=== PATIENT | male | born 1955 | race Caucasian/White ===

== ENCOUNTER 2020-06-21 09:11 | Outpatient (CLI) | payer MEDICARE, SELFPAY ==
--- NOTE | ~2020-06-21 | US_ITS ---
EXAMINATION: US right upper quadrant DATE: 06/21/2020 09:36 INDICATION: Right upper quadrant abdominal pain. TECHNIQUE: Multiple grayscale and Doppler ultrasound images of the abdomen were obtained. COMPARISON: CT abdomen and pelvis 09/07/2018 FINDINGS: The visualized portions of the head, body, and tail of the pancreas are normal. The liver i s normal without focal lesion. There is normal flow in main portal vein. The gallbladder is normal in size. No gallstones or gallbladder wall thickening. There was no sonographic Cardozo sign. The common duct is normal and measures 3 mm. IMPRESSION: 1. Normal right upper quadrant ultrasound. Reviewed, dictated and finalized at location A.
== END 2020-06-21 09:12 | disposition home or self-care (01) ==
LOC: ANHIMG 09:17
PROVIDERS: PCP Internal Medicine; Visit Provider Physician Assistant Medical
DX: R10.11 Right upper quadrant pain (principal)
CPT/HCPCS: 76705

== ENCOUNTER 2020-07-07 02:33 | Outpatient (CLI) | payer MEDICARE, SELFPAY ==
[2020-07-07 18:02] LABS: SARS-CoV-2 RNA PCR Negative
== END 2020-07-07 02:34 | disposition home or self-care (01) ==
LOC: ANHCOVIDDT 02:33
PROVIDERS: PCP Internal Medicine; Visit Provider Internal Medicine Gastroenterology
DX: Z01.812 Encounter for preprocedural laboratory examination (principal); Z20.828 Contact with and (suspected) exposure to other viral communicable diseases
CPT/HCPCS: 87635; C9803; U0003

== ENCOUNTER 2020-08-04 00:35 | Outpatient (CLI) | payer MEDICARE, SELFPAY ==
[2020-08-04 21:24] LABS: SARS-CoV-2 RNA PCR Negative
== END 2020-08-04 00:36 | disposition home or self-care (01) ==
LOC: ANHCOVIDDT 00:35
PROVIDERS: PCP Internal Medicine; Visit Provider Internal Medicine Gastroenterology
DX: Z01.812 Encounter for preprocedural laboratory examination (principal); Z20.828 Contact with and (suspected) exposure to other viral communicable diseases
CPT/HCPCS: 87635; C9803; U0003

== ENCOUNTER 2020-08-07 01:10 | Day surgery (SDC) | payer MEDICARE, SELFPAY ==
[2020-07-27 13:18] VITALS: BMI 24.4
[2020-08-07 10:12] VITALS: BP 110/82; PULSE 120; RESP 18; TEMP 36.6; O2SAT 98
[2020-08-07] MEDS: LACTATED RINGERS 1,000 ML 150 ML IV CONT (10:21)
--- NOTE | 2020-08-07 10:48 | WPDANESEPPF ---
Anes - Initial Pre Proc Eval Procedure: Operation Date: 08/07/20 11:30 Proposed Procedures p Colonoscopy - Connor Aguillon DO Date/Time: 08/07/20 10:48 Surgeon: Connor Aguillon DO Pre Op Diagnosis: IBS with constipation and diarrhea Patient Data Age: 64 Gender: M Height: 5 ft 9 in Weight: 69.2 kg Last Vital Signs Temp 97.8 F 08/07/20 10:12 Pulse 120 H 08/07/20 10:12 Resp 18 08/07/20 10:12 BP 110/82 08/07/20 10:12 Pulse Ox 98 08/07/20 10:12 Allergies Allergy/AdvReac Type Severity Reaction Status Date / Time acetaminophen [From Vicodin] AdvReac Mild Headache Verified 08/07/20 10:11 cefuroxime AdvReac Mild Diarrhea Verified 08/07/20 10:11 codeine AdvReac Mild Flushing Verified 08/07/20 10:11 hydrocodone [From Vicodin] AdvReac Mild Headache Verified 08/07/20 10:11 Home Medications Medication Instructions Recorded Confirmed Type tamsulosin 0.4 mg capsule 0.4 mg PO DAILY 09/10/19 08/07/20 History gabapentin 300 mg capsule 300 mg PO TID cap 10/15/19 07/27/20 History sildenafil 100 mg tablet 100 mg PO DAILY PRN #8 tablet 04/20/20 07/27/20 Rx loratadine-pseudoephedrine 1 tablet PO Q12H PRN 07/04/20 07/27/20 History [Claritin-D 12 Hour] omeprazole 40 mg PO DAILY 07/04/20 07/27/20 History tizanidine 4 mg PO TID 07/04/20 07/27/20 History tramadol 50 mg PO Q12-24H PRN 07/04/20 07/27/20 History alprazolam 1 mg tablet 1 mg PO BID #60 tablet 08/01/20 08/07/20 Rx Patient hx anesthesia problems: none Family hx anesthesia problems: none PMFSH Past Medical History Medical History Cervical fusion syndrome Cough TOS (thoracic outlet syndrome) Surgical History Surgical History History of esophagogastroduodenoscopy (EGD) Family History Family History Sibling Hypertension Patient's brother is in good health Mother Patient's mother is Family history of Parkinson's disease Father Patient's father is Family history of emphysema Social History Social History Smoking status: Never smoker Second hand tobacco smoke exposure: No Alcohol intake: current Drinks per week: 0 Alcohol use details: Rarely Substance use: never Substance use type: does not use Living arrangements: with family Spiritual care concerns: No Anes - Eval Final PreProcedure Day of Procedure 08/07/20 10:48 Patient weight: normal Heart: regular rate and rhythm Lungs: clear to auscultation Airway: Mallampati scale class II Neurological: alert and oriented Last oral intake: >/= 8 hours ASA classification: II Emergent: no Anesthetic plan: proceed Anesthesia type and monitoring: general GIVS and standard monitoring Informed Consent: The patient's anesthetic plan and its attendant risks and benefits were discussed with the patient/family/POA. Questions were solicited and answers provided to the satisfaction of the patient/family/POA.
--- NOTE | 2020-08-07 11:50 | PM.IMHP ---
H&P: HPI History of Present Illness Date/Time: 08/07/20 11:50 Chief complaint: IBS with constipation and diarrhea Narrative: Reason for visit is colonoscopy. This very pleasant gentleman seen in consultation at the request of the primary physician. Impression: The review gentleman with a history of abdominal pain, constipation diarrhea. We will evaluate for underlying inflammatory neoplastic disease. The symptoms may be compatible with underlying IBS with alternating constipation and diarrhea. dyspepsia/GERD. Anxiety. BPH. Chronic pain. Status post thoracic outlet syndrome surgery x4. Recommendation: Will proceed with colonoscopy. History: This very pleasant gentleman is being evaluated for abdominal pain. The patient awakened 1 night with severe abdominal pain. Is described as severe cramping pain followed by several episodes of diarrhea. Denied any hematochezia, melena acholic stools. He was having complaints of diaphoresis and nausea. Recently the patient has been having complaints of right upper quadrant Abdominal discomfort. Ultrasound report is unremarkable. Patient here for colonoscopy to evaluate for underlying inflammatory neoplastic disease. He had been noticing increasing belching. Physical examination: General: very pleasant patient in no acute distress. HEENT: Head was normocephalic sclerae is clear mouth without masses neck was supple. Heart: Rate rhythm regular without S3 or S4. Lungs: CTA. Abdomen: Soft with no guarding or rigidity. Bowel sounds were active. Neurologic: Cranial nerves 2 through 12 intact. No focal defects. No clonus. Musculoskeletal system: Revealed no joint tenderness or swelling no muscle atrophy. Extremities: Reveal no significant edema. Skin: Warm and dry with normal turgor. Mental status: intact. Patient is alert and oriented. Review of Systems Review of Systems: All systems reviewed & are unremarkable except as noted in HPI and below PMFSH Past Medical History Medical History Cervical fusion syndrome Cough TOS (thoracic outlet syndrome) Surgical History Surgical History History of esophagogastroduodenoscopy (EGD) Family History Family History Sibling Hypertension Patient's brother is in good health Mother Patient's mother is Family history of Parkinson's disease Father Patient's father is Family history of emphysema Social History Social History Smoking status: Never smoker Second hand tobacco smoke exposure: No Alcohol intake: current Drinks per week: 0 Alcohol use details: Rarely Substance use: never Substance use type: does not use Living arrangements: with family Spiritual care concerns: No Meds Home Medications and Allergies Home Medications Medication Instructions Recorded Confirmed Type tamsulosin 0.4 mg capsule 0.4 mg PO DAILY 09/10/19 08/07/20 History gabapentin 300 mg capsule 300 mg PO TID cap 10/15/19 07/27/20 History sildenafil 100 mg tablet 100 mg PO DAILY PRN #8 tablet 04/20/20 07/27/20 Rx loratadine-pseudoephedrine 1 tablet PO Q12H PRN 07/04/20 07/27/20 History [Claritin-D 12 Hour] omeprazole 40 mg PO DAILY 07/04/20 07/27/20 History tizanidine 4 mg PO TID 07/04/20 07/27/20 History tramadol 50 mg PO Q12-24H PRN 07/04/20 07/27/20 History alprazolam 1 mg tablet 1 mg PO BID #60 tablet 08/01/20 08/07/20 Rx Allergies Allergy/AdvReac Type Severity Reaction Status Date / Time acetaminophen [From Vicodin] AdvReac Mild Headache Verified 08/07/20 10:11 cefuroxime AdvReac Mild Diarrhea Verified 08/07/20 10:11 codeine AdvReac Mild Flushing Verified 08/07/20 10:11 hydrocodone [From Vicodin] AdvReac Mild Headache
[2020-08-07 12:15] VITALS: BP 111/69; PULSE 81; RESP 18; O2SAT 98
[2020-08-07 12:25] VITALS: BP 120/74; PULSE 72; RESP 13; O2SAT 97
[2020-08-07 12:35] VITALS: BP 121/70; PULSE 74; RESP 22; O2SAT 100
== END 2020-08-07 12:39 | disposition home or self-care (01) ==
PROVIDERS: PCP Internal Medicine; Visit Provider Internal Medicine Gastroenterology
PROC: 0DJD8ZZ Inspection of Lower Intestinal Tract, Via Natural or Artificial Opening Endoscopic (ICD-10-PCS; CPT 45378; principal; 2020-08-07 11:30)
DX: R11.0 Nausea (principal); R19.7 Diarrhea, unspecified; R63.4 Abnormal weight loss; K57.30 Diverticulosis of large intestine without perforation or abscess without bleeding; K63.5 Polyp of colon; K62.89 Other specified diseases of anus and rectum; G54.0 Brachial plexus disorders
CPT/HCPCS: 45385; 45380; 88305; J2001; J2704; J7120

== ENCOUNTER 2020-08-18 02:17 | Outpatient (CLI) | payer MEDICARE, SELFPAY ==
[2020-08-18 18:46] LABS: SARS-CoV-2 RNA PCR Negative
== END 2020-08-18 02:18 | disposition home or self-care (01) ==
LOC: ANHCOVIDDT 02:18
PROVIDERS: PCP Internal Medicine; Visit Provider Internal Medicine Gastroenterology
DX: Z01.818 Encounter for other preprocedural examination (principal); Z20.828 Contact with and (suspected) exposure to other viral communicable diseases
CPT/HCPCS: 87635; C9803; U0003

== ENCOUNTER 2020-08-21 00:38 | Day surgery (SDC) | payer MEDICARE, SELFPAY ==
[2020-07-04 09:53] VITALS: BMI 24.4
[2020-08-14 14:12] VITALS: BMI 22.4
[2020-08-21 11:41] VITALS: BP 120/86; PULSE 92; RESP 16; TEMP 36.4; O2SAT 96
[2020-08-21] MEDS: LACTATED RINGERS 1,000 ML 150 ML IV CONT (11:54)
--- NOTE | 2020-08-21 11:57 | WPDANESEPPF ---
Anes - Initial Pre Proc Eval Procedure: Operation Date: 08/21/20 13:00 Proposed Procedures p Esophagogastroduodenoscopy - Connor Aguillon DO Date/Time: 08/21/20 11:57 Surgeon: Connor Aguillon DO Pre Op Diagnosis: GERD Patient Data Age: 64 Gender: M Height: 5 ft 9 in Weight: 70.7 kg Last Vital Signs Temp 36.4 C L 08/21/20 11:41 Pulse 92 08/21/20 11:41 Resp 16 08/21/20 11:41 BP 120/86 08/21/20 11:41 Pulse Ox 96 08/21/20 11:41 Allergies Allergy/AdvReac Type Severity Reaction Status Date / Time acetaminophen [From Vicodin] AdvReac Mild Headache Verified 08/21/20 11:37 cefuroxime AdvReac Mild Diarrhea Verified 08/21/20 11:37 codeine AdvReac Mild Flushing Verified 08/21/20 11:37 hydrocodone [From Vicodin] AdvReac Mild Headache Verified 08/21/20 11:37 Home Medications Medication Instructions Recorded Confirmed Type tamsulosin 0.4 mg capsule 0.4 mg PO DAILY 09/10/19 08/14/20 History gabapentin 300 mg capsule 300 mg PO TID cap 10/15/19 08/14/20 History sildenafil 100 mg tablet 100 mg PO DAILY PRN #8 tablet 04/20/20 08/14/20 Rx loratadine-pseudoephedrine 1 tablet PO Q12H PRN 07/04/20 08/14/20 History [Claritin-D 12 Hour] omeprazole 40 mg PO DAILY 07/04/20 08/14/20 History tizanidine 4 mg PO TID 07/04/20 08/14/20 History tramadol 50 mg PO Q12-24H PRN 07/04/20 08/14/20 History alprazolam 1 mg tablet 1 mg PO BID #60 tablet 08/01/20 08/14/20 Rx hyoscyamine sulfate 0.125 mg PO QID 08/14/20 08/14/20 History Patient hx anesthesia problems: none Family hx anesthesia problems: none PMFSH Past Medical History Medical History Cervical fusion syndrome Cough TOS (thoracic outlet syndrome) Surgical History Surgical History History of esophagogastroduodenoscopy (EGD) Family History Family History Sibling Hypertension Patient's brother is in good health Mother Patient's mother is Family history of Parkinson's disease Father Patient's father is Family history of emphysema Social History Social History Smoking status: Never smoker Second hand tobacco smoke exposure: No Alcohol intake: never Drinks per week: 0 Substance use: never Substance use type: does not use Spiritual care concerns: No Anes - Eval Final PreProcedure Day of Procedure 08/21/20 11:57 Patient weight: normal Heart: regular rate and rhythm Lungs: clear to auscultation Airway: Mallampati scale class II Neurological: alert and oriented Last oral intake: >/= 8 hours ASA classification: II Emergent: no Anesthetic plan: proceed Anesthesia type and monitoring: general GIVS and standard monitoring Informed Consent: The patient's anesthetic plan and its attendant risks and benefits were discussed with the patient/family/POA. Questions were solicited and answers provided to the satisfaction of the patient/family/POA.
--- NOTE | 2020-08-21 12:03 | WPDHPUPDATE1 ---
History and Physical Update Update Date/Time: 08/21/20 12:03 History and Physical has been reviewed, including an updated exam of the patient. There are NO changes in the patient's condition. Risks, benefits, and alternatives have been discussed and questions answered. Patient agrees to proceed with procedure.
[2020-08-21] MEDS: BENZOCAINE (*SP) 60 ML SPRAY CAN (HURRICAINE) 1 SPRAY MUCOUS MEM (12:31)
[2020-08-21 12:44] VITALS: BP 110/64; PULSE 79; RESP 20; O2SAT 96
[2020-08-21 12:54] VITALS: BP 114/71; PULSE 75; RESP 20; O2SAT 96
[2020-08-21 13:04] VITALS: BP 116/73; PULSE 67; RESP 20; O2SAT 100
== END 2020-08-21 13:18 | disposition home or self-care (01) ==
PROVIDERS: PCP Internal Medicine; Visit Provider Internal Medicine Gastroenterology
PROC: 0DJ08ZZ Inspection of Upper Intestinal Tract, Via Natural or Artificial Opening Endoscopic (ICD-10-PCS; CPT 43235; principal; 2020-08-21 13:00)
DX: K21.9 Gastro-esophageal reflux disease without esophagitis (principal); M43.22 Fusion of spine, cervical region; G54.0 Brachial plexus disorders; K31.7 Polyp of stomach and duodenum
CPT/HCPCS: 43239; 88305; C9803; J2704; J7120; U0003

== ENCOUNTER 2020-08-23 14:05 | Outpatient (CLI) | payer MEDICARE, SELFPAY ==
--- NOTE | ~2020-08-23 | CT_ITS ---
EXAMINATION: CT abdomen pelvis w con EXAM DATE: 08/23/2020 15:03 INDICATION: RUQ pain, Epigastric pain. Weight loss, diarrhea. TECHNIQUE: Spiral CT of the abdomen and pelvis was performed following intravenous injection of 100 m L Omnipaque 350. Axial, coronal and sagittal images were reviewed. The dose-length product (DLP) fo r this examination was 353.07 mGy-cm. The exposure was tailored according to patient size (auto mA e xposure control), and iterative reconstruction (ASIR) was used as additional dose reduction technique . Comparison is made to prior examination from 09/07/2018. FINDINGS: The liver, spleen, adrenal glands and pancreas are unremarkable. Gallbladder is unremarkab le. No biliary obstruction. Portal and splenic veins are patent. Kidneys enhance symmetrically. T here is no hydronephrosis. There is a 5.4 cm left renal cyst. The prostate is unremarkable. The eveyln dder is unremarkable. There is no retroperitoneal or pelvic lymphadenopathy. The appendix is normal. The stomach and small bowel are unremarkable. There is expected amount of c olonic stool. There is mild scattered colonic diverticulosis. There is no adjacent inflammatory cesar ge to suggest diverticulitis. No free intraperitoneal gas. The heart is normal in size. There are no pericardial or pleural effusions. The lung bases are unremarkable. There are no osteoblastic or osteolytic lesions identified. L4-5 left hemilaminectomy and interbody fusion. IMPRESSION: No acute intra-abdominal findings. Mild colonic diverticulosis. Reviewed, dictated and finalized at location A. RAL JAVA DEVELOPER
[2020-08-23 14:47] LABS: Estimated Glomerular Filt Rate > 60
== END 2020-08-23 14:06 | disposition home or self-care (01) ==
PROVIDERS: PCP Internal Medicine; Visit Provider Internal Medicine Gastroenterology
DX: R10.11 Right upper quadrant pain (principal); R10.13 Epigastric pain; N28.1 Cyst of kidney, acquired; K57.30 Diverticulosis of large intestine without perforation or abscess without bleeding
CPT/HCPCS: 74177; Q9967

== ENCOUNTER 2020-09-15 07:33 | Outpatient (CLI) | payer MEDICARE, SELFPAY ==
--- NOTE | ~2020-09-15 | NM_ITS ---
EXAMINATION: NM hepatobiliary w pharm DATE: 09/15/2020 10:07 INDICATION: Right upper quadrant abdominal pain. COMPARISON: CT abdomen and pelvis 08/23/2020 TECHNIQUE: 5 mCi Tc-99m mebrofenin (Choletec) was administered intravenously. Scintigraphic images o f the abdomen were obtained for one hour. Then, 1.5 mcg sincalide (Kinevac) IV was administered, and imaging was continued for 30 minutes. FINDINGS: There is normal clearance of radiotracer from the blood pool. There is homogeneous tracer u ptake by the liver. Activity progresses to the bowel and gallbladder. Gallbladder ejection fraction (GBEF) was 95%. Note that most patients with gallbladder dysfunction have GBEF < 35%, which overlaps with the broad normal range of 10-90%. IMPRESSION: 1. Normal hepatobiliary scintigraphy. Reviewed, dictated and finalized at location A. OL SPEECH LANGUAGE PATHOLOGIST
== END 2020-09-15 07:34 | disposition home or self-care (01) ==
LOC: ANHIMG 07:35
PROVIDERS: PCP Internal Medicine; Visit Provider Internal Medicine Gastroenterology
DX: R10.11 Right upper quadrant pain (principal)
CPT/HCPCS: 78227; A9537; J2805

== ENCOUNTER → 2021-03-30 06:48 | Outpatient (CLI) | payer MEDICARE, SELFPAY ==
[2021-03-30 17:52] LABS: SARS-CoV-2 RNA PCR Negative
== END ==
PROVIDERS: PCP Internal Medicine; Visit Provider Internal Medicine
DX: R68.89 Other general symptoms and signs (principal); Z20.822 Contact with and (suspected) exposure to COVID-19
CPT/HCPCS: C9803; U0003; U0005

== ENCOUNTER 2021-05-29 09:18 | Outpatient (CLI) | payer MEDICARE, SELFPAY ==
--- NOTE | ~2021-05-29 | CT_ITS ---
EXAMINATION: CT sinus wo con DATE: 05/29/2021 09:45 INDICATION: Chronic sinusitis. TECHNIQUE: Computed tomography (CT) of the paranasal sinuses was performed without intravenous contra st. The dose-length product was 333.52 mGy-cm. Automated exposure control and iterative reconstructio n technique were employed. COMPARISON: CT dated 08/08/2017 FINDINGS: No significant mucosal thickening, fluid, mucoperiosteal reaction or air-fluid levels are d emonstrated. No nasal septal deviation. Ostiomeatal units are patent. Mastoids are pneumatized. IMPRESSION: 1. No significant sinus disease. Reviewed, dictated and finalized at location A.
== END 2021-05-29 09:19 | disposition home or self-care (01) ==
LOC: ANHIMG 09:19
PROVIDERS: PCP Internal Medicine; Visit Provider Internal Medicine
DX: J32.9 Chronic sinusitis, unspecified (principal)
CPT/HCPCS: 70486

== ENCOUNTER 2021-08-07 14:44 | Outpatient (CLI) | payer MEDICARE, SELFPAY ==
[2021-08-07 15:12] LABS: Hematocrit 46.5 % (42.0-52.0); Hemoglobin 15.5 g/dL (14.0-18.0)
[2021-08-07 15:24] LABS: Alanine Aminotransferase 32 U/L (4-50); Albumin Level 4.6 g/dL (3.5-5.1); Alkaline Phosphatase 68 U/L (38-126); Anion Gap 8 mmol/L (8-16); Aspartate Amino Transferase 33 U/L (17-59); Bilirubin,Total 0.8 mg/dL (0.2-1.3); Blood Urea Nitrogen 20 mg/dL (9-20); Calcium 9.6 mg/dL (8.4-10.2); Carbon Dioxide 27 mmol/L (22-30); Chloride 100 mmol/L (98-107); Cholesterol 161 mg/dL (0-200); Estimated Glomerular Filt Rate > 60; Glucose 102 mg/dL (65-110); HDL Direct 60 mg/dL; Potassium 4.5 mmol/L (3.4-5.0); Sodium 135 mmol/L (137-145); Triglycerides 94 mg/dL (<150)
[2021-08-07 15:35] LABS: LDL Cholesterol Direct 77 mg/dL
[2021-08-07 15:55] LABS: Prostate Specific Antigen 1.8 ng/mL (< OR = 4.0)
[2021-08-07 16:14] LABS: Free T4 Free Thyroxine 0.87 ng/mL (0.78-2.19)
[2021-08-09 10:40] LABS: Hepatitis B Surface Antigen Negative (Negative)
[2021-08-09 10:57] LABS: HIV 1/2 Ab P24 Ag Result Negative (Negative); Hepatitis C Virus Antibody Negative (Negative)
[2021-08-10 14:27] LABS: Testosterone Total 588 ng/dL (250-1100)
== END 2021-08-07 14:45 | disposition home or self-care (01) ==
PROVIDERS: PCP Internal Medicine; Visit Provider Nurse Practitioner
DX: R63.4 Abnormal weight loss (principal); Z12.5 Encounter for screening for malignant neoplasm of prostate; R53.83 Other fatigue; Z00.00 Encounter for general adult medical examination without abnormal findings
CPT/HCPCS: 36415; 80053; 80061; 84153; 84403; 84439; 84443; 85014; 85018; 86703; 86803; 87340; G0103; G0432

== ENCOUNTER 2021-08-09 10:49 | Outpatient (CLI) | payer SELFPAY ==
[2021-08-09 12:50] LABS: HIV 1/2 Ab P24 Ag Result Negative (Negative)
[2021-08-09 16:37] LABS: Hepatitis B Surface Antigen Negative (Negative)
[2021-08-09 16:53] LABS: Hepatitis C Virus Antibody Negative (Negative)
== END 2021-08-09 10:50 | disposition home or self-care (01) ==
LOC: ANHLAB 10:58
PROVIDERS: PCP Internal Medicine; Visit Provider Internal Medicine
DX: T14.8XXA Other injury of unspecified body region, initial encounter (principal)
CPT/HCPCS: 36415; 86703; 86803; 87340; G0432

== ENCOUNTER 2021-08-14 13:17 | Outpatient (CLI) | payer MEDICARE, SELFPAY ==
--- NOTE | ~2021-08-14 | CT_ITS ---
EXAMINATION: CT chest abdomen pelvis wo con EXAM DATE: 08/14/2021 13:51 INDICATION: R63.4 - Abnormal weight loss. Intermittent right upper quadrant discomfort. TECHNIQUE: Spiral CT of the chest, abdomen and pelvis was performed without contrast. Axial, moreno l and sagittal images chest, abdomen and pelvis were reviewed. Coronal maximum intensity pixel image s of chest reviewed. The dose-length product (DLP) for this examination was 487.77 mGy-cm. The expo sure was tailored according to patient size (auto mA exposure control), and iterative reconstruction (ASIR) was used as additional dose reduction technique. Comparison is made to prior examination from 08/23/2020. FINDINGS: CHEST: The lungs are clear. There are no pleural or pericardial effusions. Tracheobronchial tree is patent. There is no mediastinal, hilar or axillary lymphadenopathy. There is no pneumothorax. Heart normal in size. There is mild coronary arterial calcification, arterial sclerosis. ABDOMEN PELVIS: The liver, spleen, adrenal glands and pancreas are unremarkable. Gallbladder is unre markable. No biliary obstruction. There is no nephrolithiasis or hydronephrosis. Renal cysts bilate rally largest on the left at 5.7 cm. Mild prostatomegaly. The bladder is unremarkable. There is no retroperitoneal or pelvic lymphadenopathy. The appendix is normal. Mild prominence of the rectal wall, about 4 cm from the anal verge. This appe ars more pronounced than on prior studies. There is mild scattered colonic diverticulosis. There is no adjacent inflammatory change to suggest diverticulitis. The stomach and small bowel are unremarkab le. There is expected amount of colonic stool. No free intraperitoneal gas. There are no osteobl astic or osteolytic lesions identified. L4-5 interbody fusion. IMPRESSION: 1. Development of mildly prominent rectal wall, can't exclude rectal cancer. 2. Mild scattered colonic diverticulosis. 3. Mild prostatomegaly. 4. Unremarkable chest. Reviewed, dictated and finalized at location A. ING NEWS PRODUCER
== END 2021-08-14 13:18 | disposition home or self-care (01) ==
LOC: ANHIMG 13:19
PROVIDERS: PCP Internal Medicine; Visit Provider Nurse Practitioner
DX: R63.4 Abnormal weight loss (principal); N40.0 Benign prostatic hyperplasia without lower urinary tract symptoms; K57.30 Diverticulosis of large intestine without perforation or abscess without bleeding
CPT/HCPCS: 71250; 74176

== ENCOUNTER → 2021-08-15 09:55 | Outpatient (CLI) | payer MEDICARE, SELFPAY ==
[2021-08-15 13:14] LABS: Influenza Control Positive
[2021-08-15 20:26] LABS: SARS-CoV-2 RNA PCR Negative
== END ==
PROVIDERS: PCP Internal Medicine; Visit Provider Nurse Practitioner
DX: R68.89 Other general symptoms and signs (principal); Z20.822 Contact with and (suspected) exposure to COVID-19
CPT/HCPCS: 87804; C9803; U0003; U0005

== ENCOUNTER 2021-09-19 10:49 | Outpatient (CLI) | payer MEDICARE, SELFPAY ==
--- NOTE | ~2021-09-19 | CT_ITS ---
EXAMINATION: CT abdomen pelvis w con DATE: 09/19/2021 11:45 INDICATION: Right lower quadrant abdominal pain TECHNIQUE: Computed tomography (CT) of the abdomen and pelvis was performed with 100 mL Omnipaque-350 intravenous contrast. Automated exposure control and iterative reconstruction technique were employe d. The dose-length product was 681.22 mGy-cm. COMPARISON: 08/24/2021 FINDINGS: Lung bases are clear. Heart size is normal. No pericardial or pleural effusion. Liver, gallbladder, s pleen, pancreas and bilateral adrenal glands are normal. Bilateral low-attenuation renal cysts the la rgest measuring 5.7 cm at the upper pole of the left kidney in the remainder all measuring 1 cm or sm aller. There is mild to moderate colonic diverticulosis with a sigmoid and descending colon predomina nce. There is no adjacent inflammatory change to suggest diverticulitis. Small bowel and appendix ar e normal. Bladder is normal. Prostatomegaly measuring 4.4 x 3.8 cm. No free intraperitoneal gas or fl uid. No pathologically enlarged abdominal or pelvic lymphadenopathy. Mild lumbar dextrocurvature. Mod erate lumbar spondylosis with anterior spinal fusion with interbody bone graft cage at L4-L5. IMPRESSION: 1. Normal appendix. No acute intra-abdominal/pelvic process. 2. Mild to moderate diverticulosis. 3. Prostatomegaly. Reviewed, dictated and finalized at location A. E AND MISSILE OPERATIONS SPACELIFT
[2021-09-19 11:34] LABS: Estimated Glomerular Filt Rate > 60
== END 2021-09-19 10:50 | disposition home or self-care (01) ==
LOC: ANHIMG 10:53
PROVIDERS: PCP Internal Medicine; Visit Provider Internal Medicine
DX: R10.31 Right lower quadrant pain (principal); N40.0 Benign prostatic hyperplasia without lower urinary tract symptoms; K57.30 Diverticulosis of large intestine without perforation or abscess without bleeding
CPT/HCPCS: 74177; Q9967

== ENCOUNTER 2021-09-28 02:02 | Day surgery (SDC) | payer MEDICARE, SELFPAY ==
[2021-09-18 13:21] VITALS: BMI 22.8
--- NOTE | 2021-09-27 14:02 | WPDANESEPPF ---
Anes - Initial Pre Proc Eval Procedure: Operation Date: 09/28/21 07:30 Proposed Procedures p Colonoscopy - Valentin Chairez MD s [facility] Hemorrhoid Treatment - Valentin Chairez MD Date/Time: 09/27/21 14:02 Surgeon: Valentin Chairez MD Pre Op Diagnosis: Abnormal Xray Patient Data Age: 65 Gender: M Height: 1.75 m Weight: 70 kg Allergies Allergy/AdvReac Type Severity Reaction Status Date / Time doxycycline AdvReac Intermediate Diarrhea Verified 09/28/21 06:33 acetaminophen [From Vicodin] AdvReac Mild Headache Verified 09/28/21 06:33 cefuroxime AdvReac Mild Diarrhea Verified 09/28/21 06:33 codeine AdvReac Mild Flushing Verified 09/28/21 06:33 hydrocodone [From Vicodin] AdvReac Mild Headache Verified 09/28/21 06:33 Home Medications Medication Instructions Recorded Confirmed Type tamsulosin 0.4 mg capsule 0.4 mg PO DAILY 09/10/19 09/19/21 History gabapentin 300 mg capsule 300 mg PO TID cap 10/15/19 09/19/21 History sildenafil 100 mg tablet 100 mg PO DAILY PRN #8 tablet 04/20/20 09/19/21 Rx loratadine-pseudoephedrine 1 tablet PO Q12H PRN 07/04/20 09/19/21 History [Claritin-D 12 Hour] omeprazole 40 mg PO DAILY PRN 07/04/20 09/19/21 History tizanidine 4 mg PO TID 07/04/20 09/19/21 History fluticasone furoate 27.5 2 spray INTRANASAL DAILY #18.2 ml 05/25/21 09/19/21 Rx mcg/actuation nasal spray,suspension alprazolam 1 mg tablet 1 mg PO BID #60 tablet 07/30/21 09/19/21 Rx oxycodone 5 mg tablet 5 mg PO Q6H PRN #30 tablet 09/19/21 09/19/21 Rx Patient hx anesthesia problems: none Family hx anesthesia problems: none Results Review: All pre-operative results and documents have been reviewed as part of the pre-operative evaluation. [facility] Past Medical History Medical History (Updated 09/27/21 @ 14:03 by Jovani Tyler DO) Anxiety Cervical fusion syndrome Chronic sinusitis Cough TOS (thoracic outlet syndrome) Surgical History Surgical History History of esophagogastroduodenoscopy (EGD) Family History Family History Sibling Hypertension Patient's brother is in good health Mother Patient's mother is Family history of Parkinson's disease Father Patient's father is Family history of emphysema Social History Social History Smoking status: Never smoker Second hand tobacco smoke exposure: No Alcohol intake: former Alcohol use details: 3 DRINKS PER YEAR Substance use: never Substance use type: does not use Living arrangements: with family Spiritual care concerns: No Anes - Eval Final PreProcedure Day of Procedure 09/27/21 14:02 Patient weight: normal Heart: regular rate and rhythm Lungs: clear to auscultation and normal air movement Airway: Mallampati scale class II Neurological: alert and oriented Last oral intake: >/= 8 hours ASA classification: II Emergent: no Anesthetic plan: proceed Anesthesia type and monitoring: general GIVS and standard monitoring Results Review: All pre-operative results and documents have been reviewed as part of the pre-operative evaluation. Informed Consent: The patient's anesthetic plan and its attendant risks and benefits were discussed with the patient/family/POA. Questions were solicited and answers provided to the satisfaction of the patient/family/POA.
[2021-09-28 06:35] VITALS: BP 127/112; RESP 18; O2SAT 99; BMI 22.9
[2021-09-28] MEDS: LACTATED RINGERS 1,000 ML 150 ML IV CONT (06:37)
--- NOTE | 2021-09-28 07:23 | PM.HPGS ---
History of Present Illness History of Present Illness Consent: Risks, benefits, and alternatives have been discussed and questions answered. Patient agrees to proceed with procedure. Chief complaint: Abnormal Xray Narrative: Connor Hicks is a 65 year old male with weight loss and rlq pain, also noted symptomatic hemorrhoids. Had colonoscopy 2020 that showed TA polyp, normal random colon biopsies. Recent CT scan showed mild thickening of rectum. Review of Systems Constitutional: Constitutional: Denies headache(s) and Denies weakness Eyes: Eyes: Denies blurry vision ENT: Reports Normal hearing present, Denies headache(s) and Denies neck pain Cardiovascular: Cardiovascular: Denies chest pain and Denies dyspnea Respiratory: Respiratory: Denies dyspnea Gastrointestinal: Gastrointestinal: Reports no additional gastrointestinal complaints Genitourinary: Genitourinary: Denies dysuria Musculoskeletal: Musculoskeletal: Denies neck pain Integumentary/Breasts: Skin/Breast: Denies dry skin Neurologic: Reports Normal hearing present, Denies headache(s) and Denies weakness Psychiatric: Psychiatric: Denies anxiety Endocrine: Endocrine: Denies change in body appearance Hematologic/Lymphatic: Hematologic/Lymphatic: Denies easy bleeding Allergic/Immunologic: Allergic/Immunologic: Denies urticaria PMFSH Past Medical History Medical History (Updated 09/27/21 @ 14:03 by Jovani Tyler DO) Anxiety Cervical fusion syndrome Chronic sinusitis Cough TOS (thoracic outlet syndrome) Surgical History Surgical History History of esophagogastroduodenoscopy (EGD) Family History Family History Sibling Hypertension Patient's brother is in good health Mother Patient's mother is Family history of Parkinson's disease Father Patient's father is Family history of emphysema Social History Social History Smoking status: Never smoker Second hand tobacco smoke exposure: No Alcohol intake: former Alcohol use details: 3 DRINKS PER YEAR Substance use: never Substance use type: does not use Living arrangements: with family Spiritual care concerns: No Meds Home Medications and Allergies Home Medications Medication Instructions Recorded Confirmed Type tamsulosin 0.4 mg capsule 0.4 mg PO DAILY 09/10/19 09/19/21 History gabapentin 300 mg capsule 300 mg PO TID cap 10/15/19 09/19/21 History sildenafil 100 mg tablet 100 mg PO DAILY PRN #8 tablet 04/20/20 09/19/21 Rx loratadine-pseudoephedrine 1 tablet PO Q12H PRN 07/04/20 09/19/21 History [Claritin-D 12 Hour] omeprazole 40 mg PO DAILY PRN 07/04/20 09/19/21 History tizanidine 4 mg PO TID 07/04/20 09/19/21 History fluticasone furoate 27.5 2 spray INTRANASAL DAILY #18.2 ml 05/25/21 09/19/21 Rx mcg/actuation nasal spray,suspension alprazolam 1 mg tablet 1 mg PO BID #60 tablet 07/30/21 09/19/21 Rx oxycodone 5 mg tablet 5 mg PO Q6H PRN #30 tablet 09/19/21 09/19/21 Rx Allergies Allergy/AdvReac Type Severity Reaction Status Date / Time doxycycline AdvReac Intermediate Diarrhea Verified 09/28/21 06:33 acetaminophen [From Vicodin] AdvReac Mild Headache Verified 09/28/21 06:33 cefuroxime AdvReac Mild Diarrhea Verified 09/28/21 06:33 codeine AdvReac Mild Flushing Verified 09/28/21 06:33 hydrocodone [From Vicodin] AdvReac Mild Headache Verified 09/28/21 06:33 Vital Signs Vital Signs - 24 hr 09/28/21 06:35 Respiratory Rate 18 Blood Pressure 127/112 H Pulse Oximetry 99 Exam Const: General: comfortable and no acute distress HENMT: General nose exam: Normal nares present Eyes: General: appearance normal, both eyes and all related structures Neck: Neck: no JVD Resp: Auscultation: clear to auscultation bilaterally Cardio: Rate: regular rate
[2021-09-28 07:55] VITALS: BP 93/61; PULSE 80; RESP 20; O2SAT 99
--- NOTE | 2021-09-28 07:56 | W.PM.PROC2 ---
Procedure Note - Detailed Date of Procedure 09/28/21 Pre-op Diagnosis internal hemorrhoids Post-op Diagnosis same Procedure Performed IRC (infrared coagulation of hemorrhoids) Surgeon Valentin Chairez MD Findings found grade II internal hemorrhoids, also skin tags, no anal fissure. Then I introduced anoscope and IRC probe, hemorrhoids treated x6 using 1.5 seconds each time. Description of Procedure as above
[2021-09-28 08:05] VITALS: BP 102/70; PULSE 77; RESP 23; O2SAT 97
[2021-09-28 08:15] VITALS: BP 110/75; PULSE 78; RESP 22; O2SAT 99
--- NOTE | 2021-09-28 08:43 | SUR.OPER ---
RN updated family
== END 2021-09-28 08:25 | disposition home or self-care (01) ==
PROVIDERS: PCP Internal Medicine; Visit Provider Internal Medicine Gastroenterology
PROC: 0DJD8ZZ Inspection of Lower Intestinal Tract, Via Natural or Artificial Opening Endoscopic (ICD-10-PCS; CPT 45378; principal; 2021-09-28 07:30)
PROC: (CPT 46930; 2021-09-28 07:30)
DX: K64.8 Other hemorrhoids (principal); R63.4 Abnormal weight loss; G54.0 Brachial plexus disorders; Q76.1 Klippel-Feil syndrome; F41.9 Anxiety disorder, unspecified
CPT/HCPCS: 46930; 88305; J2704; J7120

== ENCOUNTER → 2022-03-22 02:20 | Outpatient (CLI) | payer MEDICARE, SELFPAY ==
[2022-03-22 17:31] LABS: SARS-CoV-2 RNA PCR Negative
== END ==
PROVIDERS: PCP Internal Medicine; Visit Provider Internal Medicine
DX: R68.89 Other general symptoms and signs (principal); Z20.822 Contact with and (suspected) exposure to COVID-19
CPT/HCPCS: C9803; U0003; U0005

== ENCOUNTER 2022-08-28 09:34 | Outpatient (CLI) | payer MEDICARE, SELFPAY ==
--- NOTE | ~2022-08-28 | CT_ITS ---
EXAMINATION: CT abdomen pelvis wo/w con DATE: 08/28/2022 10:35 INDICATION: Chronic prostatitis TECHNIQUE: Computed tomography (CT) of the abdomen and pelvis was performed without and subsequently with 130 CC Omnipaque 350 intravenous contrast. Automated exposure control and iterative reconstructi on technique were employed. Exam dose: 1176.81 mGy-cm total exam DLP. COMPARISON: 08/28/2022 KUB FINDINGS: The lung bases are clear of infiltrate or consolidation. Normal heart size. No pericardial or pleural effusion. Very small right hepatic probable cyst (series 4 image 67). The gallbladder appears normal. No bile d uct or pancreatic duct dilatation. No pancreatic mass lesion or calcification. Normal morphology of the adrenal glands. Normal splenic size. Mildly septated upper pole left renal cyst measures up to 5.6 cm approximate maximal dimension scatte red additional bilateral smaller renal cysts, measuring up to 11.4 cm on the right. There is prominent prostate enlargement, prominently impressing the base of the urinary bladder, with moderately prominent diffuse bladder wall thickening likely due to outlet obstruction.. There are mu ltiple prostate calcifications. Normal appendix. Diverticulosis of sigmoid and descending colon; no CT evidence of diverticulitis. No bowel obstructio n, bowel wall thickening, pneumatosis or intraperitoneal free air. Normal caliber of the abdominal aorta. No intraperitoneal or retroperitoneal or pelvic mass lesion or adenopathy or ascites. Status post left lower lumbar laminectomy and interbody spinal fusion at L4-5. Moderately severe degenerative disc disease at L5-S1. No suspicious osteolytic or osteoblastic lesions. IMPRESSION: Prominent prostate enlargement, prostate calcification, with associated bladder outlet o bstruction/moderately prominent bladder wall thickening Mild diverticulosis of the left colon; no CT evidence of diverticulitis Normal appendix Bilateral renal cysts included septate up to approximately 5.6 cm upper pole left renal cyst 6 mm probable cyst of right hepatic lobe Reviewed, dictated and finalized at [facility]. Reviewed, dictated and finalized at [facility]. [employer] IMPRESSION: Prominent prostate enlargement, prostate calcification, with assoc iated bladder outlet obstruction/moderately prominent bladder wall thickening Mild diverticulosis of the left colon; no CT evidence of diverticulitis Normal appendix Bilateral renal cysts included septate up to approximately 5.6 cm upper pole le ft renal cyst 6 mm probable cyst of right hepatic lobe
--- NOTE | ~2022-08-28 | XR_ITS ---
Supine and upright views of the abdomen Clinical history: Chronic prostatitis COMPARISON: 09/07/2018 Findings: Bowel gas pattern is nonspecific. No evidence for obstruction or free air. Multiple calcifi ed pelvic phleboliths noted. Stable orthopedic hardware at the lower lumbar spine. Impression: No significant abnormality is seen. Reviewed, dictated and finalized at [facility]. A ARTIST Impression: No significant abnormality is seen.
[2022-08-28 10:10] LABS: Estimated Glomerular Filt Rate 56
== END 2022-08-28 09:35 | disposition home or self-care (01) ==
PROVIDERS: PCP Internal Medicine; Visit Provider Nurse Practitioner Adult Health
DX: N41.1 Chronic prostatitis (principal); N40.0 Benign prostatic hyperplasia without lower urinary tract symptoms; K57.30 Diverticulosis of large intestine without perforation or abscess without bleeding; N28.1 Cyst of kidney, acquired
CPT/HCPCS: 74018; 74178; Q9967

== ENCOUNTER 2022-09-10 18:32 | Emergency (ER) | payer MEDICARE, SELFPAY ==
--- NOTE | 2022-09-10 18:34 | ED.URI ---
HPI - URI/Sore Throat General Chief Complaint: Upper Respiratory Infection Stated Complaint: congestion; sneezing; sore chest Time Seen by Provider: 09/10/22 18:34 Source: patient Mode of arrival: ambulatory Limitations: no limitations History of Present Illness HPI Narrative: Mr. Hicks is a 66-year-old male patient presenting to the clinic today with complaints of headache, cough, chest soreness, sneezing, and nasal congestion X3 days. He reports he feels as though he is having body aches in his chest and across his back. He denies any productive cough however he states he has been having a lot of nasal drainage and postnasal drip. Denies any known fever but has felt chills MD elicited complaint: cough, nasal congestion and other ( chest discomfort) Related Data Home Medications Medication Instructions Recorded Confirmed tamsulosin 0.4 mg capsule (Flomax) 0.4 mg PO DAILY 09/10/19 12/25/21 gabapentin 300 mg capsule 300 mg PO TID 10/15/19 12/25/21 loratadine 5 mg-pseudoephedrine ER 1 tablet PO Q12H PRN Allergy 07/04/20 12/25/21 120 mg tablet,extended Symptoms release,12hr (Claritin-D 12 Hour) omeprazole 40 mg capsule,delayed 40 mg PO DAILY PRN Indigestion 07/04/20 12/25/21 release tramadol 50 mg tablet 50 mg PO Q6H PRN 12/11/21 12/25/21 Allergies Allergy/AdvReac Type Severity Reaction Status Date / Time doxycycline AdvReac Intermediate Diarrhea Verified 09/10/22 18:45 acetaminophen [From Vicodin] AdvReac Mild Headache Verified 09/10/22 18:45 cefuroxime AdvReac Mild Diarrhea Verified 09/10/22 18:45 codeine AdvReac Mild Flushing Verified 09/10/22 18:45 hydrocodone [From Vicodin] AdvReac Mild Headache Verified 09/10/22 18:45 Review of Systems Review of Systems: Pertinent positives per HPI. Patient denies any fever, rash, visual changes, dizziness, cough, shortness of breath, chest pain, palpitations, nausea, vomiting, diarrhea, constipation, abdominal pain, or any urinary issues. PMFSH Past Medical History Medical History Anxiety Cervical fusion syndrome Chronic sinusitis Cough TOS (thoracic outlet syndrome) Surgical History Surgical History History of esophagogastroduodenoscopy (EGD) Family History Family History Sibling Hypertension Patient's brother is in good health Mother Patient's mother is Family history of Parkinson's disease Father Patient's father is Family history of emphysema Social History Social History Second hand tobacco smoke exposure: No Alcohol intake: former Alcohol use details: 3 DRINKS PER YEAR Substance use: never Substance use type: does not use Spiritual care concerns: No Comments At the time of my signature, I reviewed and agree with the nursing past medical, surgical, social, and family history. There is no relevant family history pertinent to the patient complaint. Exam Narrative: General: Well-developed, well nourished, in no apparent distress Head: Normocephalic, atraumatic Eyes: Pupils equally round and reactive to light bilaterally, EOM intact, sclera and conjunctive clear, no discharge, lids normal Ears: TMs intact and clear, ear canals clear, no drainage, grossly hearing normal. Nose: Nares patent, no discharge, no inflammation, no sinus tenderness. Mouth: Oral pharynx without lesions or masses, good dentition, MMM. Neck: Supple, trachea midline, no enlargement of anterior or posterior cervical nodes, no thyroid masses or goiter palpable. Cardio: Regular rate and rhythm, s1 and s2 normal, no murmur appreciated. Resp: Clear to auscultation bilaterally, no rhonchi, rales, wheezing or rubs Course Course Emergency Course: Portions of this record may francis
[2022-09-10 18:42] VITALS: BP 139/80; PULSE 91; RESP 16; TEMP 36.6; O2SAT 98
[2022-09-10 18:47] VITALS: BP 139/80; PULSE 91; RESP 16; TEMP 36.6; O2SAT 98
== END 2022-09-10 19:19 | disposition home or self-care (01) ==
PROVIDERS: Emergency Provider Nurse Practitioner Family; PCP Internal Medicine
DX: J06.9 Acute upper respiratory infection, unspecified (principal); B34.9 Viral infection, unspecified; Z20.822 Contact with and (suspected) exposure to COVID-19
CPT/HCPCS: 87426; 87804; 99213; C9803; G0463

== ENCOUNTER 2022-09-17 08:40 | Outpatient (CLI) | payer MEDICARE, SELFPAY ==
[2022-09-17 09:09] LABS: Cholesterol 162 mg/dL (0-200); HDL Direct 54 mg/dL; Triglycerides 52 mg/dL (<150)
[2022-09-17 09:10] LABS: Alanine Aminotransferase 28 U/L (6-50); Albumin Level 4.2 g/dL (3.5-5.1); Alkaline Phosphatase 60 U/L (38-126); Anion Gap 6 mmol/L (8-16); Aspartate Amino Transferase 27 U/L (17-59); Bilirubin,Total 0.9 mg/dL (0.2-1.3); Blood Urea Nitrogen 16 mg/dL (9-20); Calcium 8.8 mg/dL (8.4-10.2); Carbon Dioxide 27 mmol/L (22-30); Chloride 103 mmol/L (98-107); Estimated Glomerular Filt Rate > 60; Glucose 88 mg/dL (65-110); Potassium 3.2 mmol/L (3.4-5.0); Sodium 136 mmol/L (137-145)
[2022-09-17 09:20] LABS: LDL Cholesterol Direct 76 mg/dL
[2022-09-17 09:43] LABS: Prostate Specific Antigen 1.3 ng/mL (< OR = 4.0)
== END 2022-09-17 08:41 | disposition home or self-care (01) ==
LOC: ANHLAB 08:41
PROVIDERS: Nurse Practitioner; PCP Internal Medicine; Visit Provider Internal Medicine
DX: E78.5 Hyperlipidemia, unspecified (principal); R97.20 Elevated prostate specific antigen [PSA]
CPT/HCPCS: 36415; 80053; 80061; 84153; 84443

== ENCOUNTER 2022-09-23 11:39 | Outpatient (CLI) | payer MEDICARE, SELFPAY ==
[2022-09-23 12:22] LABS: Anion Gap 5 mmol/L (8-16); Blood Urea Nitrogen 19 mg/dL (9-20); Calcium 8.4 mg/dL (8.4-10.2); Carbon Dioxide 27 mmol/L (22-30); Chloride 102 mmol/L (98-107); Estimated Glomerular Filt Rate > 60; Glucose 90 mg/dL (65-110); Potassium 3.8 mmol/L (3.4-5.0); Sodium 134 mmol/L (137-145)
== END 2022-09-23 11:40 | disposition home or self-care (01) ==
PROVIDERS: PCP Internal Medicine; Visit Provider Nurse Practitioner
DX: E87.6 Hypokalemia (principal)
CPT/HCPCS: 36415; 80048

== ENCOUNTER 2023-06-25 21:11 | Emergency (ER) | payer MEDICARE, SELFPAY ==
--- NOTE | ~2023-06-25 | XR_ITS ---
EXAMINATION: XR chest 2V DATE: 06/25/2023 21:59 INDICATION: Chest flutter. TECHNIQUE: Frontal and lateral views of the chest were obtained. COMPARISON: Chest 2 views 11/26/2016 FINDINGS: There is no pneumonia, pleural effusion, or pneumothorax. The heart size is normal. IMPRESSION: 1. No acute cardiopulmonary disease. Reviewed, dictated and finalized at [facility].
--- NOTE | 2023-06-25 21:11 | ECG_ITS ---
Measurements Intervals [place] Rate: 90 P: 50 IN: 149 QRS: -43 QRSD: 88 T: 30 QT: 333 QTc: 408 Interpretive Statements SINUS RHYTHM WITH OCCASIONAL VENTRICULAR PREMATURE COMPLEXES BASELINE ARTIFACT INFERIOR MYOCARDIAL INFARCTION , PROBABLY OLD [40+ ms Q WAVE AND/OR ST/T ABNORMALITY IN II/aVF] ABNORMAL ECG NO PREVIOUS ECG AVAILABLE FOR COMPARISON Electronically Signed On 06-26-2023 17:11:23 CDT by Kenton Fontanez M.D.
[2023-06-25 21:14] VITALS: BP 172/86; PULSE 82; RESP 14; TEMP 36.5; O2SAT 100
[2023-06-25 21:30] LABS: Basophils Absolute Auto 0.1 K/mm3 (0.0-0.1); Basophils Percent Auto 0.9 % (0.2-1.2); Eosinophils Absolute Auto 0.1 K/mm3 (0-0.3); Eosinophils Percent Auto 1.6 % (0-4.4); Hematocrit 49.1 % (42.0-52.0); Hemoglobin 15.8 g/dL (14.0-18.0); Immature Granulocyte Absolute 0.03 K/mm3 (0.00-0.031); Immature Granulocyte Percent A 0.3 % (0-0.5); Lymphocytes Absolute Auto 2.27 K/mm3 (0.9-3.2); Lymphocytes Percent Auto 26.4 % (18.3-44.2); Mean Corpuscular HGB Conc 32.2 g/dl (32-36); Mean Corpuscular Hemoglobin 30.7 pg (26-34); Mean Corpuscular Volume 95.3 fl (80-100); Mean Platelet Volume 10.9 fl (7.4-10.4); Neutrophils Absolute Auto 5.1 K/mm3 (1.3-6.7); Neutrophils Percent Auto 58.8 % (45.5-73.1); Platelet Count Result 167 k/mm3 (150-375); Red Blood Count 5.15 M/mm3 (4.6-6.20); Red Cell Distribution Width 12.8 % (11.5-14.5); White Blood Count 8.6 K/mm3 (4.5-10.0)
[2023-06-25 21:41] LABS: Alanine Aminotransferase 30 U/L (6-50); Albumin Level 4.5 g/dL (3.5-5.1); Alkaline Phosphatase 77 U/L (38-126); Anion Gap 5 mmol/L (8-16); Aspartate Amino Transferase 36 U/L (17-59); Bilirubin,Total 0.7 mg/dL (0.2-1.3); Blood Urea Nitrogen 25 mg/dL (9-20); Calcium 8.9 mg/dL (8.4-10.2); Carbon Dioxide 28 mmol/L (22-30); Chloride 102 mmol/L (98-107); Estimated Glomerular Filt Rate > 60; Glucose 84 mg/dL (65-110); Lipase 135 U/L (23-300); Partial Thromboplastin Time 26.3 SECONDS (22.3-36.8); Prothrombin Time 13.2 Seconds (11.1-14.7); Sodium 135 mmol/L (137-145)
[2023-06-25 21:53] LABS: Troponin I < 0.012 ng/mL (0.000-0.034)
--- NOTE | 2023-06-26 01:57 | ED.GENADULT ---
HPI - General Adult General Chief complaint: Chest Pain Stated complaint: chest pain Time Seen by Provider: 06/26/23 00:57 Source: patient Mode of arrival: ambulatory Limitations: no limitations History of Present Illness HPI narrative: This is a 67-year-old male who presents to the ED with chief complaints of heart palpitations beginning this evening. Reports he had an episode of sweating while sitting in his chair. Reports it was associated with her palpitations and feelings of anxiety. Denies chest pain, shortness of breath, leg swelling. Denies any exertional component. Denies vomiting, LOC. Denies back pain, numbness, weakness. Related Data Home Medications Medication Instructions Recorded Confirmed tamsulosin 0.4 mg capsule (Flomax) 0.4 mg PO DAILY 09/10/19 06/11/23 loratadine 5 mg-pseudoephedrine ER 1 tablet PO Q12H PRN Allergy 07/04/20 09/13/22 120 mg tablet,extended Symptoms release,12hr (Claritin-D 12 Hour) omeprazole 40 mg capsule,delayed 40 mg PO DAILY PRN Indigestion 07/04/20 06/11/23 release tramadol 50 mg tablet 50 mg PO Q6H PRN 12/11/21 06/11/23 Allergies Allergy/AdvReac Type Severity Reaction Status Date / Time doxycycline AdvReac Intermediate Diarrhea Verified 06/11/23 06:57 acetaminophen [From Vicodin] AdvReac Mild Headache Verified 06/11/23 06:57 cefuroxime AdvReac Mild Diarrhea Verified 06/11/23 06:57 codeine AdvReac Mild Flushing Verified 06/11/23 06:57 hydrocodone [From Vicodin] AdvReac Mild Headache Verified 06/11/23 06:57 Review of Systems Review of Systems: All systems as dictated in [facility] PMF Past Medical History Medical History Anxiety Cervical fusion syndrome Chronic sinusitis Cough TOS (thoracic outlet syndrome) Surgical History Surgical History History of esophagogastroduodenoscopy (EGD) Family History Family History Sibling Hypertension Patient's brother is in good health Mother Patient's mother is Family history of Parkinson's disease Father Patient's father is Family history of emphysema Social History Social History Smoking status: Never smoker Second hand tobacco smoke exposure: No Alcohol intake: former Alcohol use details: 2 drinks a year Substance use: never Substance use type: does not use Lack of Transportation: No Lack of Food: Never True Current Housing: I Have Housing Concerned About Future Housing: No Difficulty Paying Gas/Electric Bills: No Difficulty Paying for Meds: No Currently Unemployed: No Education: High School Diploma/GED Difficulty w/ Childcare or Family Care: No Living arrangements: with family Spiritual care concerns: No Exam Narrative: GENERAL: Well-appearing, well-nourished, and in no acute distress. HEAD: Normocephalic, atraumatic. EYES: PERRLA and EOMI. ENT: Nares clear, no rhinorrhea or epistaxis. Mucous membranes moist. Oropharynx without tonsillar hypertrophy exudate or other lesions. NECK: Supple. No adenopathy or masses. CHEST: No respiratory distress. Clear to auscultation. No wheezes rales or rhonchi HEART: Regular rate and rhythm. No murmur heard. Normal peripheral pulses. ABDOMEN: Soft, nontender, nondistended, normal active bowel sounds. MSK: Normal range of motion. No edema. SKIN: Warm, dry, no rash. NEURO: Alert and oriented x3. No focal deficits. PSYCH: Normal mood and affect. Course Vital Signs Vital signs: Vital Signs Temperature 97.7 F 06/25/23 21:14 Pulse Rate 82 06/25/23 21:14 Respiratory Rate 14 06/25/23 21:14 Blood Pressure 172/86 H 06/25/23 21:14 Pulse Oximetry 100 06/25/23 21:14 Oxygen Delivery Room Air 06/25/23 21:14 Temperature 97.7 F 06/25/23 21:14 Pulse Rate 79 10
[2023-06-26 02:18] VITALS: O2SAT 97
[2023-06-26 02:28] LABS: Troponin I < 0.012 ng/mL (0.000-0.034)
[2023-06-26 02:42] LABS: Magnesium 2.2 mg/dL (1.6-2.3); Phosphorus 3.8 mg/dL (2.5-4.5)
[2023-06-26 03:09] VITALS: BP 157/90; PULSE 79; RESP 16; O2SAT 97
== END 2023-06-26 03:11 | disposition home or self-care (01) ==
PROVIDERS: Emergency Medicine; Emergency Provider Physician Assistant; PCP Nurse Practitioner
DX: I49.3 Ventricular premature depolarization (principal); R00.2 Palpitations
CPT/HCPCS: 36415; 71046; 80053; 83690; 83735; 84100; 84484; 85025; 85610; 85730; 93005; 99284

== ENCOUNTER 2023-07-07 09:57 | Outpatient (CLI) | payer MEDICARE, SELFPAY ==
--- NOTE | 2023-07-11 16:04 | WPDHOLTEREM ---
Holter/Event Monitor Holter/Event Monitor Date of procedure: 07/07/23 Holter/Event Procedure: 48 Hr Holter Monitor Indications: Palpitations Conclusion: 1. 48 hour holter monitor on 07/07/23. 2. Underlying rhythm is sinus rhythm. HR range 52-160 bpm; average 82 bpm. 3. There are 40 premature supraventricular complexes and 1 supraventricular couplet. No supraventricular tachycardia. 4. There are 8,558 premature ventricular complexes, 90 ventricular couplets, 33 ventricular bigeminy, 3 ventricular trigeminy. No ventricular tachycardia. 5. No sinoatrial or atrioventricular blocks. No significant pauses greater than 2 seconds. 6. No symptoms available for correlation.
== END 2023-07-07 09:58 | disposition home or self-care (01) ==
LOC: ANHCARD 09:57
PROVIDERS: PCP Nurse Practitioner; Visit Provider Nurse Practitioner
DX: I49.3 Ventricular premature depolarization (principal); R00.2 Palpitations
CPT/HCPCS: 93225; 93226

== ENCOUNTER → 2023-10-17 08:35 | Outpatient (CLI) | payer MEDICARE, SELFPAY ==
--- NOTE | ~2023-10-17 | XR_ITS ---
Clinical Indication: Cough PA and lateral views of the chest: Comparison: 06/25/2023 Findings: The lungs are clear, without evidence of focal consolidation or pleural effusion. Cardiome diastinal silhouette is within normal limits. Bones and soft tissues are unremarkable. Impression: Normal chest. Reviewed, dictated and finalized at [facility]. [employer]TER Impression: Normal chest.
== END ==
PROVIDERS: PCP Nurse Practitioner; Visit Provider Nurse Practitioner
DX: R05.9 Cough, unspecified (principal)
CPT/HCPCS: 71046

== ENCOUNTER 2023-11-21 14:44 | Outpatient (CLI) | payer MEDICARE, SELFPAY ==
--- NOTE | ~2023-11-21 | XR_ITS ---
EXAMINATION: XR chest 2V 11/21/2023 14:57 INDICATION: Cough and runny nose PROCEDURE: 2 view chest COMPARISON: Comparison to multiple prior studies sequentially, with oldest reviewed study dated 10/02. FINDINGS: The lungs are clear. The cardiomediastinal silhouette is within normal limits. There are no pleural effusions. There is no pneumothorax suspected. IMPRESSION: 1: NO ACUTE CARDIOPULMONARY DISEASE. Reviewed, dictated and finalized at [facility].
== END 2023-11-21 14:45 | disposition home or self-care (01) ==
LOC: ANHIMG 14:44
PROVIDERS: PCP Nurse Practitioner; Visit Provider Nurse Practitioner
DX: R05.9 Cough, unspecified (principal); R09.89 Other specified symptoms and signs involving the circulatory and respiratory systems; J02.9 Acute pharyngitis, unspecified
CPT/HCPCS: 71046

== ENCOUNTER 2024-01-07 08:10 | Outpatient (CLI) | payer MEDICARE, SELFPAY ==
--- NOTE | ~2024-01-07 | XR_ITS ---
XR elbow RT 2V 01/07/2024 08:25 INDICATION: Right elbow pain PROCEDURE: 2 views right elbow COMPARISON: . No prior studies for comparison. FINDINGS: Fracture, dislocation or subluxation is not identified. No significant joint effusion. The soft tissues appear within normal limits. No foreign bodies are identified. IMPRESSION: 1: NO ACUTE BONE OR JOINT ABNORMALITY IDENTIFIED. Reviewed, dictated and finalized at [facility].
== END 2024-01-07 08:11 | disposition home or self-care (01) ==
PROVIDERS: PCP Nurse Practitioner; Visit Provider Nurse Practitioner
DX: M25.521 Pain in right elbow (principal)
CPT/HCPCS: 73070

== ENCOUNTER 2024-05-26 11:36 | Outpatient (CLI) | payer MEDICARE, SELFPAY ==
[2024-05-26 12:10] LABS: Hematocrit 45.4 % (42.0-52.0); Hemoglobin 15.1 g/dL (14.0-18.0); Mean Corpuscular HGB Conc 33.3 g/dl (32-36); Mean Corpuscular Hemoglobin 31.5 pg (26-34); Mean Corpuscular Volume 94.8 fl (80-100); Mean Platelet Volume 10.3 fl (7.4-10.4); Platelet Count Result 176 k/mm3 (150-375); Red Blood Count 4.79 M/mm3 (4.6-6.20); White Blood Count 6.1 K/mm3 (4.5-10.0)
[2024-05-26 12:28] LABS: Alanine Aminotransferase 23 U/L (6-50); Albumin Level 4.4 g/dL (3.5-5.1); Alkaline Phosphatase 59 U/L (38-126); Anion Gap 10 mmol/L (4-12); Aspartate Amino Transferase 32 U/L (17-59); Bilirubin,Total 0.8 mg/dL (0.2-1.3); Blood Urea Nitrogen 25 mg/dL (9-20); Calcium 9.1 mg/dL (8.4-10.2); Carbon Dioxide 29 mmol/L (22-30); Chloride 96 mmol/L (98-107); Estimated Glomerular Filt Rate > 60; Glucose 92 mg/dL (65-110); Potassium 4.3 mmol/L (3.4-5.0); Sodium 135 mmol/L (137-145)
[2024-05-26 13:00] LABS: Prostate Specific Antigen 1.6 ng/mL (< OR = 4.0)
== END 2024-05-26 11:37 | disposition home or self-care (01) ==
LOC: ANHLAB 11:38
PROVIDERS: PCP Nurse Practitioner; Visit Provider Nurse Practitioner
DX: G54.0 Brachial plexus disorders (principal); Z00.00 Encounter for general adult medical examination without abnormal findings; R63.4 Abnormal weight loss; Z12.5 Encounter for screening for malignant neoplasm of prostate
CPT/HCPCS: 36415; 80053; 84153; 84439; 84443; 85027; G0103

== ENCOUNTER 2025-01-12 10:58 | Outpatient (CLI) | payer MEDICARE, SELFPAY ==
--- NOTE | ~2025-01-12 | CT_ITS ---
EXAMINATION: CT brain & sinus wo con DATE: 01/12/2025 11:19 INDICATION: Chronic sinusitis TECHNIQUE: Computed tomography (CT) of the brain and sinuses was performed without intravenous contra st. The dose-length product was 832.33 mGy-cm. Automated exposure control and iterative reconstructio n technique were employed. COMPARISON: CT dated 05/29/2021 FINDINGS: Mild generalized atrophy. There are scattered mild periventricular and subcortical white ma tter changes, most likely related to small vessel ischemic disease (microangiopathy). No ventriculome kingston or midline shift. Basilar cisterns are patent. No acute infarction, hemorrhage, mass or mass eff ect. Paranasal sinuses are pneumatized. No significant mucosal thickening or air-fluid level. No nasal sep esvin deviation. Ostiomeatal units are patent. Mastoids are pneumatized. No depressed skull fractures. Midline sagittal images demonstrate a normal corpus callosum and craniovertebral junction. IMPRESSION: 1. No acute intracranial abnormality. No significant sinus disease. Reviewed, dictated and finalized at location A.
--- OUTSIDE RECORDS SUMMARY | 2025-01-12 11:51 | XMS_ITS | Encounter Summary ---
Author Organization [facility] Healthcare Address [address] [place] [address] Care Team Providers Care Sales Operations Coordinator Name Role Phone Ameya Burleson DO Primary Care Provider [phone] Debbie Marrero PT Unavailable [phone] Josse Mcfadden MD Primary Care Provider [phone] Ameya Burleson DO Primary Care Provider [phone] Encounter Details Date Type Department Care Team (Late st Contact Info) Description 06/30/[address] [facility] [address] [facility] [address] [place] [address] Ryan Ramirez MD [address] [place] [address] Social History Tobacco Use Types Packs/Day Years Used Date Smoking Tobacco: Never Smokeless Tobacco: Never Alcohol Use Standard Drinks/Week Comments Yes 0 (1 standard drink = 0.6 oz pur e alcohol) Rarely AUDIT-C Answer Date Recorded Frequency of Alcohol Consumption Monthly or less 03/04/2019 Average Number of Drinks Not on file 019 Frequency of Binge Drinking Not on file 02/07 Sex and Gender Information Value Date Recorded Sex Assigned at Not on file 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 Author CCM Chronic Pain Care Plan Chronic Care Management No change(12/18 1:59 PM CDT) Katherine Alexandre, RN Note: Problem: Chronic Pain Goals: 1. Minimize further functional decline 2. Maximize quality of life 3. Control pain Strategies: - Activity/exercise program recommendation - Conservative stepwise pain medicine strategy with multi-disciplinary approach - Recommend healthy lifestyle strategies and compensatory methods as needed documented as of this encounter Visit Diagnoses Not on filedocumented in this encounter Care Teams Sales Operations Coordinator Relationship Specialty Start Date End Date Ameya Burleson DO PCP - General Internal Medicine 06/11/18 07/22/23 Josse Mcfadden MD PCP - General Family Practice 07/23/23 05/11/24 Ameya Burleson DO [address] [address] PCP - General Internal Medicine 05/12/24 Debbie Marrero, PT Physical Therapist Physical Therapy 04/22/19 10/03/19 documented as of this encounter
--- OUTSIDE RECORDS SUMMARY | 2025-01-12 11:52 | XMS_ITS | Encounter Summary ---
Author Organization [facility] Address [address] [place] [address] Phone Care Team Providers Care Bookkeeping Assistant Name Role Phone Ameya Burleson DO Primary Care Provider [phone] Josse Mcfadden MD Primary Care Provider [phone] Ameya Burleson DO Primary Care Provider [phone] Encounter Details Date Type Department Care Team (Late st Contact Info) Description 01/27/2020 Documentation [facility] Physical Therapy [address] [facility] 1[address] [place] [address] Debbie Marrero, PT [address] [facility] [address] [place] [address] Social History Tobacco Use Types Packs/Day Years [...] on file 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
--- OUTSIDE RECORDS SUMMARY | 2025-01-12 11:52 | XMS_ITS | Encounter Summary ---
Author Organization [facility] Healthcare Address [address] [place] [address] Care Team Providers Care Director Patient Name Role Phone Ameya Burleson DO Primary Care Provider [phone] Valentine Carvajal DPT Unavailable [phone] Debbie Marrero PT Unavailable [phone] Josse Mcfadden MD Primary Care Provider [phone] Ameya Burleson DO Primary Care Provider [phone] Encounter Details Date Type Department Care Team (Late st Contact Info) Description 01/21/2019 Telephone [facility] [place] [address] [facility] Advanced Medicine [address] [place] [address] Ryan Ramirez MD [address] [place] [address] Social History Tobacco Use Types Packs/Day Years Used Date Smoking Tobacco: Never Smokeless Tobacco: Never Alcohol Use Standard Drinks/Week Comments Yes 0 (1 standard drink = 0.6 oz pur e alcohol) Rarely Sex and Gender Information Value Date Recorded Sex Assigned at Not on file 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 Author CCM Chronic Pain Care Plan Chronic Care Management No change(12/18 1:59 PM CDT) No Katherine Vazquez, RN Note: Problem: Chronic Pain Goals: 1. Minimize further functional decline 2. Maximize quality of life 3. Control pain Strategies: - Activity/exercise program recommendation - Conservative stepwise pain medicine strategy with multi-disciplinary approach - Recommend healthy lifestyle strategies and compensatory methods as needed documented as of this encounter Visit Diagnoses Not on filedocumented in this encounter Care Teams Director Patient Relationship Specialty Start Date End Date Ameya Burleson DO PCP - General Internal Medicine 06/11/18 07/22/23 Josse Mcfadden MD PCP - General Family Practice 07/23/23 05/11/24 Ameya Burleson DO [address] [facility] [address] [place] [address] PCP - General Internal Medicine 05/12/24 Valentine Carvajal DPT Physical Therapist Physical Therapy 04/21/19 04/24/19 Debbie Marrero, PT Physical Therapist Physical Therapy 04/22/19 10/03/19 documented as of this encounter
--- OUTSIDE RECORDS SUMMARY | 2025-01-12 11:52 | XMS_ITS | Encounter Summary ---
Author Organization [facility] Healthcare Address [address] [place] [address] Care Team Providers Care Route Relief Driver Name Role Phone Ameya Burleson DO Primary Care Provider [phone] Josse Mcfadden MD Primary Care Provider [phone] Ameya Burleson DO Primary Care Provider [phone] Reason for Visit * Reason Onset Date Comments Prior Auth 01/09/2020 Cyclobenzaprine 5mg Encounter Details Date Type Department Care Team (Late st Contact Info) Description 01/09/2020 Telephone [facility] [address] [facility] Advanced Medicine [address] [place] [address] Ryan Ramirez MD [address] [place] [address] Prior Auth (Cyclobenzaprine 5mg) Social History Tobacco Use Types Packs/Day Years [...] on file 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
--- OUTSIDE RECORDS SUMMARY | 2025-01-12 11:52 | XMS_ITS | Clinical Summary ---
Author Organization [facility] Address [facility] [place] [address] Care Team Providers Care Senior Cyber Intelligence Analyst Name Role Phone Unavailable Primary Care Provider Unavailabl e Social History Tobacco Use Types Packs/Day Years Used Date Smoking Tobacco: Never Assessed Sex and Gender Information Value Date Recorded Sex Assigned at Not on file Legal Sex Male 8:14 PM CDT Gender Identity Not on file Sexual Orientation Not on file Plan of Treatment Health Maintenance Due Date Last Done Comments Colorectal Cancer Screening Colonoscopy (10 Years) 1955 Hepatitis C 12/28/1975 DTaP, Tdap and Td Vaccines ( 1 - Tdap) 1976 Pneumococcal Vaccine: 50+ Ye ars (1 of 1 - PCV) 12/28/2007 Zoster Vaccines (1 of 2) 12/28/2007 COVID-19 Vaccine ( - 2023-2 5 season) 2024 RSV Immunization or 60+ Years (1 - 1-dose 75+ series) 2032 Meningococcal B Vaccine Aged Out No l onger eligible based on patient's age to complete this topic Meningococcal Vaccine Aged Out No rad betty eligible based on patient's age to complete this topic RSV Immunizations Under 20 Months Aged Out No longer eligible based on patient's age to complete this topic
--- OUTSIDE RECORDS SUMMARY | 2025-01-12 11:52 | XMS_ITS | Clinical Summary ---
Author Organization [facility] Address [address], [facility] [address] [place] [address] Phone Care Team Providers Care Scalder Name Role Phone Ameya Burleson Primary Care Provider [phone] Allergies Active Allergy Reactions Criticality Noted Date Comments Codeine Other (see Comments),Unknown Low 07/18/2010 Facial flushing Flushed in face Hydrocodone-Acetamin ophen Other (see Comments) Low 12/12/2010 Headache Medications ALPRAZolam (XANAX) 1 MG Tablet Take by mouth. 8 Active tamsulosin (FLOMAX) 0.4 MG Capsule TK 1 C PO HS 8 Active fexofenadine (JOYCE) 180 MG Tablet Take 180 mg by mouth. Active loratadine (CLARITIN) 10 MG Tablet Take 10 mg by mouth. Active gabapentin (NEURONTIN) 300 MG Capsule Take 600 mg by mouth. 9 Active hydrocortisone 2.5 % Cream MALIK AA BID FOR 2 WEEKS 9 Active lidocaine (XYLOCAINE) 5 % Ointment Apply. 8 Active traMADol (ULTRAM) 50 MG Tablet 0 0 Active sildenafil citrate (Viagra) 100 MG Tablet TK 1 T PO EVERY DAY PRF INTERCOURSE 8 Active omeprazole (PriLOSEC) 40 MG CAPSULE DELAYED RELEASEIndicatio ns:Gastroesophag eal reflux disease, esophagitis presence not specified Take 1 Cap by mouth daily. 90 Cap 3 0 Active Active Problems No known active problems Family History Medical History Relation Name Comments Bladder cancer Mother Heart Disease Mother Breast Cancer Sister Relation Name Status Comments Mother Sister Social History Tobacco Use Types Packs/Day Years Used Date Smoking Tobacco: Never Smokeless Tobacco: Never Tobacco Cessation:Counseling Given: No Alcohol Use Standard Drinks/Week Comments Not Currently 0 (1 standard drink = 0.6 oz pur e alcohol) occasionally Sexually Active Control Partners Comments Yes Sex and Gender Information Value Date Recorded Sex Assigned at Not on file Legal Sex Male 12:06 AM CDT Gender Identity Not on file Sexual Orientation Not on file Last Filed Vital Signs Vital Sign Reading Time Taken Comments Blood Pressure 128/76 06/06/2020 10:46 AM CDT Pulse 92 06/06/2020 10:46 AM CDT Temperature 36.7 C (98 F) 06/06/2020 10:46 AM CDT Respiratory Rate 22 06/06/2020 10:46 AM CDT Oxygen Saturation 97% 06/06/2020 10:46 AM CDT Inhaled Oxygen Concentration - - Weight 71.7 kg (158 lb) 06/06/2020 10:46 AM CDT Height 175.3 cm (5' 9 ) 06/06/2020 10:46 AM CDT Body Mass Index 23.33 06/06/2020 10:46 AM CDT Plan of Treatment Health Maintenance Due Date Last Done Comments Hepatitis C Virus (HCV) Screening 1955 TdaP Immunization 1955 Cologuard 12/28/2007 Immunochemical Fecal Occult Blood 12/28/2007 Pneumococcal Immunization (50+ years) (1 of 1 - PCV) 12/28/2007 Zoster Immunization (1 of 2) 12/28/2007 Influenza Immunization (#1) 05/09/202405/10, 06/01/2018, 06/10/2017, Additional history exists SARS-COV-2 Immunization ( season) 2024 05/02/2021, 04/11/2021 Colonoscopy 08/07/2025 08/07/2020, 08/24/2018 Colorectal Cancer Screening 08/07/2025 Respiratory Syncytial Virus (RSV) Immunization (Adult) (1 - 1-dose 75+ series) 2032 08/07/2020, 08/24/2018 Hepatitis B Immunization Aged Out No longer eligible based on patient's age to complete this topic Meningococcal Immunization (ACWY) Aged Out No longer eligible based on patient's age to complete this topic Rotavirus Immunization Aged Out No lo nger eligible based on patient's age to complete this topic Procedures Procedure Name Priority Date/Time Associated Diagnosis Comments COLONOSCOPY Routine 08/07/2020 from Last 3 Months or Most Recently Relevant to Health Maintenance Results * COLONOSCOPY (08/07/2020) Connor Aguillon DO PROCEDURE/MINOR SURGICAL ORDERA BLES Final Result from Last 3 Months or Most Recently Relevant to Health Maintenance Insurance MEDICARE C [employer] Care Teams Scalder Relationship Specialty Start Date End Date Ameya Burleson DO [address] [place] [address] PCP - General Internal Medicine 08/13/18
--- OUTSIDE RECORDS SUMMARY | 2025-01-12 11:52 | XMS_ITS | Encounter Summary ---
Author Organization [facility] Healthcare Address [address] [place] [address] Care Team Providers Care Bituminous Paving Machine Operator Name Role Phone Ameya Burleson DO Primary Care Provider [phone] Valentine Carvajal DPT Unavailable [phone] Debbie Marrero PT Unavailable [phone] Josse Mcfadden MD Primary Care Provider [phone] Ameya Burleson DO Primary Care Provider [phone] Reason for Visit * Reason Onset Date Comments Scheduling Appointments 04/14/2019 Encounter Details Date Type Department Care Team (Late st Contact Info) Description 04/14/2019 Telephone [facility] [address] [address] Ryan Ramirez MD [address] [place] [address] Scheduling Appointments Social History Tobacco Use Types Packs/Day Years [...] on file 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 Gender Identity Not on file Sexual Orientation [...] on filedocumented in this encounter Care Teams Bituminous Paving Machine Operator Relationship Specialty Start Date End Date Ameya Burleson DO PCP - General Internal Medicine 06/11/18 07/22/23 Josse Mcfadden MD PCP - General Family Practice 07/23/23 05/11/24 Ameya Burleson DO [address] [facility] [address] [place] [address] PCP - General Internal Medicine 05/12/24 Valentine Carvajal DPT Physical Therapist Physical Therapy 04/21/19 04/24/19 Debbie Marrero PT Physical Therapist Physical Therapy 04/22/19 10/03/19 documented as of this encounter
--- OUTSIDE RECORDS SUMMARY | 2025-01-12 11:52 | XMS_ITS | Clinical Summary ---
Author Organization [facility] Address [address] [place] [address] Care Team Providers Care Locomotive Switch Operator Name Role Phone Ameya Burleson DO Primary Care Provider [phone] Allergies Active Allergy Reactions Criticality Noted Date Comments Cefuroxime Diarrhea Low 07/23/2023 Codeine Other (See comments),Flushing (skin) Low 12/12/2010 Facial flushing Doxycycline Diarrhea Low 07/23/2023 Hydrocodone-Acetaminoph en Headache Low 12/12/2010 Medications tamsulosin (FLOMAX) 0.4 mg extended release capsuleIndication s:benign prostatic hyperplasia with lower urinary tract sx Take 1 capsule (0.4 mg total) by mouth nightly 0 8 Active ALPRAZolam (XANAX) 1 mg tablet Take 1 tablet (1 mg total) by mouth nightly as needed for anxiety. 30 tablet 8 Active Additional Information Patient taking differently:1 mg oral Nightly PRN, anxiety,Indications: anxiety, Informant: Self, Reported on 01/27/2024 hydrocortisone 2.5 % creamIndications: Skin Inflammation 1 Application daily as needed 1 9 Active traMADoL (ULTRAM) 50 mg tabletIndications :Cervical radiculopathy Take 1 tablet (50 mg total) by mouth every 8 (eight) hours as needed for pain 90 tablet 2 Active Additional Information Patient taking differently:50 mg oral Every 8 hours PRN, pain,Indications: Neuropathic Pain, Informant: Self, Reported on 01/27/2024 acetaminophen (TYLENOL) 500 mg tabletIndications :Pain Take 2 tablets (1,000 mg total) by mouth every 6 (six) hours as needed for pain Active metoprolol XL (TOPROL-XL) 25 mg extended release tablet Take 1 tablet (25 mg total) by mouth daily 30 tablet 11 4 Active Active Problems Problem Noted Date Diagnosed Date Premature ventricular complex 01/29/2024 Assessment & Plan (01/30/2024 12:23 PM CDT): SP ventricular ablation with mapping by EP on 01/28. No acute events overnight. Patient reports feeling well. He denies chest pain, sob, palpitations, dizziness, light headedness. He was able to tolerate po well. No new concerns per patient. Discussed with EP, pateint has intermittent PAC/PVC on tele, but with improvement noted. Patient evaluated by EP this am and ok for discharge from their perspective. Recommend DC with eliquis 5 mg BID x 30 days and change home metoprolol to metoprolol xl 12.5mg daily. Medications prescribed to mobile pharmacy. Continue all other home medications as before. Post procedure instructions and follow up per EP. 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 10/09/2021 Chronic, continuous use of opioids 12/15/2019 Neuropathic pain of upper extremity - Left 04/30 Myalgia 03/25/2018 Neck pain 03/25/2018 Adjustment disorder with depressed mood 01/20/20 Annular tear of intervertebral disc 02/11/2017 Annular tear of lumbar disc 08/23/2016 Lumbar radiculopathy 08/23/2016 Myofascial pain 05/08/2016 Spinal enthesopathy 03/15/2016 Hyperabduction syndrome 11/27/2015 Diffuse cervicobrachial syndrome 11/27/2015 Degeneration of lumbar intervertebral disc 04/17 Muscle pain 03/30/2015 Shortness of breath 12/23/2013 Cervical radiculopathy 04/28/2013 Chronic pain of left upper extremity 04/28/2013 Postlaminectomy syndrome of cervical region 04/09 Pain in extremity 04/03/2012 Progressive muscular atrophy 04/03/2012 Thoracic outlet syndrome 12/12/2010 Neurogenic thoracic outlet syndrome 12/12/2010 Swelling of upper extremity 12/12/2010 Encounter for preventive health examination 11/06 Immunizations Immunization Administration Dates Next Due Influenza, Quadrivalent, Spl it, Preservative Free, Intramuscular 06/02/2018 Surgical History Surgery Date Site/Laterality Comments CERVICAL FUSION Cervical Vertebral Fusion - (Added by TW Conv) ROTATOR CUFF REPAIR Rotator Cuff Repair - (Added by TW Conv) WY UNLISTED PROCEDURE ABDOME N PERITONEUM & OMENTUM Hernia Repair - (Added by TW Conv) WY EXCISION 1ST &/CERVICAL RIB Thorax Excision Of First Rib - Jul 2011 left side and revision Oct right side (Added by TW Conv) NERVE BLOCK Nerve Block - left pectoralis minor and major block (Added by TW Conv) NERVE BLOCK Nerve Block - Left Pectoralis major and pectoralis minor, BOTOX (Added by TW Conv) TENOTOMY Left Pec minor HERNIA REPAIR SPINE SURGERY 6 lumbar spine surgeries BACK SURGERY WRIST SURGERY carpal tunnel release KNEE SURGERY NECK SURGERY SHOULDER SURGERY SPINAL FUSION Medical History Medical History Date Comments Brachial plexus disorders Thorac ic outlet syndrome - (Added by TW Conv) Chronic pain Thoracic outlet syndrome Depression Brachial plexus injury Breathing difficulty Genetic disorder Joint pain Anxiety Gastric reflux Allergic rhinitis Unexplained weight loss Palpitations Ventricular premature depolarization Motion sickness Family History Medical History Relation Name Comments Alcohol abuse Father Arthritis Father COPD Father Hypertension Father Cancer Mother Heart disease Mother Hypertension Mother Kidney disease Mother Cancer Sister Mental illness Sister Anesthesia problems Neg Hx Relation Name Status Comments Father Mother Sister Social History Tobacco Use Types Packs/Day Years Used Date Smoking Tobacco: Never Smokeless Tobacco: Never Tobacco Cessation:Counseling Given: Not Answered Alcohol Use Standard Drinks/Week Comments Yes 0 (1 standard drink = 0.6 oz pur e alcohol) Rarely AUDIT-C Answer Date Recorded Q1: How often do you have a drink containing alcohol? Never 01/29/2024 Q2: How many drinks containi ng alcohol do you have on a typical day when you are drinking? Patient does not drink Q3: How often do you have si x or more drinks on one occasion? Never 01/29/2024 Personal Safety Answer Date Recorded Have you ever been in or are you currently in a harmful physical or emotional relationship or is someone making you feel afraid or unsafe? 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 Gender Identity Not on file Sexual Orientation Not on file Obstetrics History Last Filed Vital Signs Vital Sign Reading Time Taken Comments Blood Pressure 130/69 06/23/2024 9:51 AM CDT Pulse 88 05/12/2024 9:00 AM CDT Temperature 36.7 C (98.1 F) 01/30/2024 8:45 AM CDT Respiratory Rate 18 01/30/2024 8:45 AM CDT Oxygen Saturation 97% 05/12/2024 9:00 AM CDT Inhaled Oxygen Concentration - - Weight 71.8 kg (158 lb 6.4 oz) 05/12/2024 9:00 A M CDT Height 175.3 cm (5' 9 ) 05/12/2024 9:00 AM CDT Body Mass Index 23.39 05/12/2024 9:00 AM CDT Plan of Treatment Health Maintenance Due Date Last Done Comments Colon Cancer Screening-Colonoscopy 1955 Depression Screening 1955 Hepatitis C Screening 1957 Prostate Cancer Screening-PSA 1957 DTaP/Tdap/Td Vaccine (1 - Tdap) 1968 Hepatitis B Screening 12/28/1975 Pneumococcal vaccine 65+ (1 of 1 - PCV) 12/28/2007 Zoster Vaccine (1 of 2) 12/28/2007 Well Visit 65+ 2022 Covid-19 Vaccine (3 - 2023-2 5 season) 2024 05/02/2021, 04/11/2021 Fall Risk Assessment 01/29/2025 01/30/2024 Influenza Vaccine (Season Ended) 2025 06/26/2021, 06/05/2020, 06/03/2019, Additional history exists Goals Goal Patient Goal Type Associated Problems [...] lifestyle strategies and compensatory methods as needed Medical Devices Implanted Type Area Boom Tender Device Identifier Shelf Expiration Date Model / Serial / Lot [employer] Vascade Mvp 6-12fr Venous Closure [id number] - [id number] - [id number] Implanted:Qty: 1 on 01/29/2024 by Timothy Sabillon MD at [facility] Collagen Right: Femoral [employer] 06/30/2025 800-612C- 10U / [id number] 30C / [id number] 30C [employer] Vascade Mvp 6-12fr Venous Closure [id number] - [id number] - [id number] Implanted:Qty: 1 on 01/29/2024 by Timothy Sabillon MD at [facility] Collagen Left: Femoral [employer] 06/30/2025 800-612C- 10U / [id number] 30C / [id number] 30C [employer] Device Vascular Closure Femoral Artery Bioabsorbable Dual Method Vascade 6-7fr Collagen [id number] - [id number] - [id number] Implanted:Qty: 1 on 01/29/2024 by Timothy Sabillon MD at [facility] Collagen Left: Femoral [employer] 10/27/2025 700-580I- 05U / [id number] 26A / [id number] 26A [employer] Device Closure Vascade Od5 Fr Femoral Artery [id number] - [id number] - [id number] Implanted:Qty: 1 on 01/29/2024 by Timothy Sabillon MD at [facility] Collagen Right: Femoral [employer] 10/07/2025 700-500DX -05U / [id number] 131A / [id number] 131A Lumbar Spine Fusion Instrumentation, Cage Spine Lumbar Cervical Spine Fusion Instrumentation, Cage Implanted:1988 (Quantity not on file) Lumbar-Sac ral Spine Explanted Type Area Boom Tender Device Identifier Shelf Expiration Date Model / Serial / Lot [employer] Neuro- Sc-2316-50e Precision Infinion 50cm 1x16 Splitter Trial Lead Kit - [id number] Implanted:Qty: 1 on 08/18/2019 by Ryan Ramirez MD at [facility] Explanted:2018 by Ryan Ramirez MD (Quantity not on file) [employer] Neuro- SC-2316-50E / / Description:Per Progress Not e from Dr. Ramirez, 08/24/2019: SCS leads removed, tip and intact. [employer] Neuro- Sc-2316-50e Precision Infinion 50cm 1x16 Splitter Trial Lead Kit - [id number] Implanted:Qty: 1 on 08/18/2019 by Ryan Ramirez MD at [facility] Explanted:2018 by Ryan Ramirez MD (Quantity not on file) [employer] Neuro- SC-2316-50E / / Description:Per Progress Not e from Dr. Ramirez, 08/24/2019: SCS leads removed, tip and intact. [employer] Jb Sc-4116 Precision Spectra 213cm 1x16 Splitter Extension Cable - [id number] Implanted:Qty: 1 on 08/18/2019 by Ryan Ramirez MD at [facility] Explanted:2018 by Ryan Ramirez MD (Quantity not on file) [employer] Jb SC-4116 / / Description:Per Progress Not e from Dr. Ramirez, 08/24/2019: SCS leads removed, tip and intact. Insurance [facility] AD[facility]ANT[facility] Address: [facility] [address] [place] [address] OPT Na[employer] [facility] MEDIC[facility] AD[facility]ANTAGE [facility] Address: [address] [address] [place] [address] [facility] MEDIC[facility] AD[facility] Address: [address] [address] [place] [address] Advance Directives For more information, please contact: [phone] * Full Code (Latest Code Status on File) Date Activated Date Inactivated Comments 01/29/2024 7:17 PM 01/30/2024 1:41 PM Care Teams Locomotive Switch Operator Relationship Specialty Start Date End Date Ameya Burleson DO [address] [place] [address] PCP - General Internal Medicine 05/12/24
--- OUTSIDE RECORDS SUMMARY | 2025-01-12 11:52 | XMS_ITS | Encounter Summary ---
Author Organization [facility] Healthcare Address [address] [place] [address] Care Team Providers Care Predictive Maintenance Technician Name Role Phone Ameya Burleson DO Primary Care Provider [phone] Debbie Marrero PT Unavailable [phone] Josse Mcfadden MD Primary Care Provider [phone] Ameya Burleson DO Primary Care Provider [phone] Reason for Visit * Reason Onset Date Comments cancel appt 05/04/2019 Encounter Details Date Type Department Care Team (Late st Contact Info) Description 05/04/2019 Telephone [facility] [place] [facility] [address] [facility] [address] [place] [address] Ryan Ramirez MD [address] [place] [address] cancel appt Social History Tobacco Use Types Packs/Day Years [...] on file 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
--- OUTSIDE RECORDS SUMMARY | 2025-01-12 11:52 | XMS_ITS | Referral Summary ---
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 Author CCM Chronic Pain Care Plan Chronic Care Management No change(12/18 1:59 PM CDT) Katherine [place]re, BRANDON Note: Problem: Chronic Pain Goals: 1. Minimize further functional decline 2. Maximize quality of life 3. Control pain Strategies: - Activity/exercise program recommendation - Conservative stepwise pain medicine strategy with multi-disciplinary approach - Recommend healthy lifestyle strategies and compensatory methods as needed Medical Devices Implanted Type Area Fuel Operator Device Identifier Shelf Expiration Date Model / Serial / Lot [employer] Vascade Mvp 6-12fr Venous Closure [id number] - [id number] - [id number] Implanted:Qty: 1 on 01/29/2024 by Timothy Sabillon MD at [facility] Collagen Right: Femoral [employer] 06/30/2025 800-612C- 10U / [id number] 30C / [id number] 30C [employer] Vascade Mvp 6-12fr Venous Closure [id number] - [id number] - [id number] Implanted:Qty: 1 on 01/29/2024 by Timothy Sabillon MD at [facility] Collagen Left: Femoral [employer] 06/30/2025 800-612C- 10U / [id number] 30C / [id number] 30C [employer] Device Vascular Closure Femoral Artery Bioabsorbable Dual Method Vascade 6-7fr Collagen [id number] - [id number] - [id number] Implanted:Qty: 1 on 01/29/2024 by Timothy Sabillon MD at [facility] Collagen Left: Femoral [employer] 10/27/2025 700-580I- 05U / [id number] 26A / [id number] 26A [employer] Device Closure Vascade Od5 Fr Femoral Artery [id number] - [id number] - [id number] Implanted:Qty: 1 on 01/29/2024 by Timothy Sabillon MD at [facility] Collagen Right: Femoral [employer] Inc 10/07/2025 700-500DX -05U / [id number] 131A / [id number] 131A Lumbar Spine Fusion Instrumentation, Cage Spine Lumbar Cervical Spine Fusion Instrumentation, Cage Implanted:1988 (Quantity not on file) Lumbar-Sac ral Spine Explanted Type Area Fuel Operator Device Identifier Shelf Expiration Date Model / Serial / Lot [employer] Neuro- Sc-2316-50e Precision Infinion 50cm 1x16 Splitter Trial Lead Kit - [id number] Implanted:Qty: 1 on 08/18/2019 by Ryan Ramirez MD at [facility] Explanted:2018 by Ryan Ramirez MD (Quantity not on file) [employer] Neuro- SC-2316-50E / / Description:Per Progress Not e from Dr. Ramirez, 08/24/2019: SCS leads removed, tip and intact. [employer] Neuro- Sc-2316-50e Precision Infinion 50cm 1x16 Splitter Trial Lead Kit - [id number] Implanted:Qty: 1 on 08/18/2019 by Ryan Ramirez MD at [facility] Explanted:2018 by Ryan Ramirez MD (Quantity not on file) [employer] Neuro- SC-2316-50E / / Description:Per Progress Not e from Dr. Ramirez, 08/24/2019: SCS leads removed, tip and intact. [employer] Jb Sc-4116 Precision Spectra 213cm 1x16 Splitter Extension Cable - [id number] Implanted:Qty: 1 on 08/18/2019 by Ryan Ramirez MD at [facility] Explanted:2018 by Ryan Ramirez MD (Quantity not on file) [employer] Jb SC-4116 / / Description:Per Progress Not e from Dr. Ramirez, 08/24/2019: SCS leads removed, tip and intact[place] [address] [facility] MEDICARE ADVANTAGE [facility] MED[facility] Address: [address] [address] [place] [address] [facility] [employer] [facility] MEDICARE ADVANTAGE [facility] MEDICARE Address: [address] [address] [place] [address] [facility] MEDICARE ADVANTAGE [facility] MEDIC[facility] Address: [address] [address] [place] [address] Advance Directives For more information, please contact: [phone] * Full Code (Latest Code Status on File) Date Activated Date Inactivated Comments 01/29/2024 7:17 PM 01/30/2024 1:41 PM Care Teams Media Consultant Relationship Specialty Start Date End Date Ameya Burleson DO [address] [address] PCP - General Internal Medicine 05/12/24
--- OUTSIDE RECORDS SUMMARY | 2025-01-12 11:52 | XMS_ITS | Encounter Summary ---
Author Organization [facility] Healthcare Address [address] [place] [address] Care Team Providers Care Wax Room Supervisor Name Role Phone Ameya Burleson DO Primary Care Provider [phone] Josse Mcfadden MD Primary Care Provider [phone] Ameya Burleson DO Primary Care Provider [phone] Reason for Visit * Reason Onset Date Comments Imaging 01/19/2020 Encounter Details Date Type Department Care Team (Late st Contact Info) Description 01/19/2020 Telephone [facility] at [facility] [place] [facility] [address] [facility] [address] [place] [address] Ryan Ramirez MD [address] [place] [address] Imaging Social History Tobacco Use Types Packs/Day Years [...] on file 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
--- OUTSIDE RECORDS SUMMARY | 2025-01-12 11:52 | XMS_ITS | Encounter Summary ---
Author Organization [facility] Healthcare Address [address] [place] [address] Care Team Providers Care Business Banking Sales Assistant Name Role Phone Ameya Burleson DO Primary Care Provider [phone] Josse Mcfadden MD Primary Care Provider [phone] Ameya Burleson DO Primary Care Provider [phone] Reason for Visit * Reason Onset Date Comments Prior Auth 11/23/2019 Methocarbamol 50 0mg Encounter Details Date Type Department Care Team (Late st Contact Info) Description 11/23/2019 Telephone [facility] at [facility] [place] [facility] [address] [facility] [address] [place] [address] Ryan Ramirez MD [address] [place] [address] Prior Auth (Methocarbamol 500mg) Social History Tobacco Use Types Packs/Day Years [...] on file 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
== END 2025-01-12 10:59 | disposition home or self-care (01) ==
PROVIDERS: PCP Internal Medicine; Visit Provider Internal Medicine
DX: J32.9 Chronic sinusitis, unspecified (principal); R51.9 Headache, unspecified
CPT/HCPCS: 70450; 70486

== ENCOUNTER 2025-03-30 16:10 | Outpatient (CLI) | payer MEDICARE, SELFPAY ==
--- NOTE | ~2025-03-30 | CT_ITS ---
CLINICAL INDICATION: Right lower quadrant pain COMPARISON: 08/28/2022. TECHNIQUE: Multiple contiguous axial images of the abdomen and pelvis were performed following the ad ministration of with 100 mL Omnipaque-350 intravenous contrast The dose-length product (DLP) was 537.17 mGy-cm. Automated exposure control and iterative reconstruction technique were employed. FINDINGS/OBSERVATIONS: Visualized lower thorax: The bilateral lung bases are clear. The heart is of normal size, without pericardial effusion. Liver: The liver demonstrates homogeneous enhancement and is not enlarged. Gallbladder and biliary system: The gallbladder is only minimally distended, and otherwise unremarkable. Pancreas: The pancreas enhances homogeneously without ductal dilatation. Spleen: The spleen enhances homogeneously and is not enlarged. Kidneys: Multiple well-circumscribed foci of fluid attenuation redemonstrated within the bilateral ki dneys, unchanged from 2021 examination. The largest is within the upper pole of the left kidney measu ring 6.7 x 5.8 x 6.6 cm, unchanged from prior. The remainder of the bilateral kidneys otherwise enhance symmetrically without hydronephrosis or zoraida l calculi. Adrenal glands: Unremarkable. Gastrointestinal tract: Colonic diverticulosis without surrounding inflammatory change. Fecal stasis within the colon. Appendix: The air-filled appendix is of normal caliber (axial series, images 70 through 93). Vasculature: Unremarkable. Lymph nodes: No pathologically enlarged or morphologically suspicious lymph nodes within the retroperitoneum or at the root of the mesentery. Pelvic structures: The bladder is distended, and otherwise unremarkable. The prostate gland is enlarged and contains bulky calcifications, an interval change from prior. Body wall and musculoskeletal: Posterior fixation at the level of L4/L5. Otherwise age-appropriate degenerative disease within the lower thoracic and lumbosacral spines. IMPRESSION: Largely stable CT examination of the lower chest, abdomen and pelvis, as detailed above. Normal appendix. Diverticulosis without surrounding inflammatory change. Prostatic enlargement. Bilateral renal cysts. Reviewed, dictated and finalized at location A. IMPRESSION: Largely stable CT examination of the lower chest, abdomen and pelvis, as detail ed above. Normal appendix. Diverticulosis without surrounding inflammatory change. Prostatic enlargement. Bilateral renal cysts.
--- OUTSIDE RECORDS SUMMARY | 2025-03-30 16:14 | XMS_ITS | Encounter Summary ---
Author Organization [facility] Address [address] [place] [address] Care Team Providers Care Commissioned Defence [employer] Officer Name Role Phone Ameya Burleson DO Primary Care Provider Debbie Marrero PT Unavailable [phone] Josse Mcfadden MD Primary Care Provider [phone] Ameya Burleson DO Primary Care Provider [phone] Encounter Details Date Type Department Care Team (Late st Contact Info) Description 06/30/2019 Telephone [facility] [address] [facility] [address] [place] [address] Ryan Ramirez MD [address] [place] [address] Social History Tobacco Use Types Packs/Day Years [...] on file 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
--- OUTSIDE RECORDS SUMMARY | 2025-03-30 16:15 | XMS_ITS | Clinical Summary ---
Author Organization [facility] Address [address] [place] [address] Care Team Providers Care Community Program Assistant Name Role Phone Ameya Burleson DO Primary Care Provider [phone] Allergies Active Allergy Reactions Criticality Noted Date [...] 12/12/2010 Encounter for preventive health examination 11/06 Encounters Date Type Department Care Team Description 02/28/2025 3:00 PM CDT Procedure visit [facility] Cardiology [address] [place] [address] PVC (premature ventricular contraction); Premature ventricular complex 02/28/2025 Telephone [facility] Cardiology [address] [place] [address] Avni Hamilton MD from Last 3 Months Immunizations Immunization Administration Dates Next Due Influenza, Quadrivalent, Spl it, Preservative Free, Intramuscular 06/02/2018 Surgical History Surgery Date Site/Laterality Comments CERVICAL FUSION Cervical Vertebral Fusion - (Added by TW Conv) ROTATOR CUFF REPAIR Rotator Cuff Repair - (Added by TW Conv) ID UNLISTED PROCEDURE ABDOME N PERITONEUM & OMENTUM Hernia Repair - (Added by TW Conv) ID EXCISION 1ST &/CERVICAL RIB Thorax Excision Of [...] on file 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 Gender Identity Not on file Sexual Orientation Not on file Obstetrics History Last Filed Vital Signs Vital Sign Reading Time Taken Comments Blood Pressure 134/80 02/28/2025 3:54 PM CDT Pulse 88 02/28/2025 3:54 PM CDT Temperature 36.7 C (98.1 F) 01/30/2024 8:45 AM CDT Respiratory Rate 18 01/30/2024 8:45 AM CDT Oxygen Saturation 97% 02/28/2025 3:54 PM CDT Inhaled Oxygen Concentration - - Weight 71.8 kg (158 lb 6.4 oz) 05/12/2024 9:00 A M CDT Height 175.3 cm (5' 9) 05/12/2024 9:00 AM CDT Body Mass Index [...] No change(12/18 1:59 PM CDT) No Katherine Vazquez RN Note: Problem: Chronic Pain Goals: 1. Minimize further functional decline 2. Maximize quality of life 3. Control pain Strategies: - Activity/exercise program recommendation - Conservative stepwise pain medicine strategy with multi-disciplinary approach - Recommend healthy lifestyle strategies and compensatory methods as needed Medical Devices Implanted Type Area Automatic Lathe Setter Device Identifier Shelf Expiration Date Model / Serial / Lot [employer] Vascade Mvp 6-12fr Venous Closure [id number] - [id number] - [id number] Implanted:Qty: 1 on 01/29/2024 by Timothy Sabillon MD at [facility] Collagen Right: Femoral [employer] 06/30/2025 800-612C- 10U / [id number] 30C / [id number] 30C [employer] Vascade Mvp 6-12fr Venous Closure [id number] - [id number] - [id number] Implanted:Qty: 1 on 01/29/2024 by Timothy Sabillon MD at [facility] Collagen Left: Femoral [employer] 06/30/2025 800-612C- 10U / [id number] 30C / [id number] 30C [employer] Inc Device Vascular Closure Femoral Artery Bioabsorbable Dual Method Vascade 6-7fr Collagen [id number] - [id number] - [id number] Implanted:Qty: 1 on 01/29/2024 by Timothy Sabillon MD at [facility] Collagen Left: Femoral [employer] 10/27/2025 700-580I- 05U / [id number] 26A / [id number] 26A [employer] Device Closure Vascade Od5 Fr Femoral Artery [id number] - [id number] - [id number] Implanted:Qty: 1 on 01/29/2024 by Timothy Sabillon MD at [facility] Collagen Right: Femoral [employer] 10/07/2025 700-500DX -05U / [id number] 131A / [id number] 131A Lumbar Spine Fusion Instrumentation, Cage Spine Lumbar Cervical Spine Fusion Instrumentation, Cage Implanted:1988 (Quantity not on file) Lumbar-Sac ral Spine Explanted Type Area Automatic Lathe Setter Device Identifier Shelf Expiration Date Model / Serial / Lot [employer] Neuro- Sc-2316-50e Precision Infinion 50cm 1x16 Splitter Trial Lead Kit - [id number] Implanted:Qty: 1 on 08/18/2019 by Ryan Ramirez MD at [facility] Explanted:2018 by Ryan Ramirez MD (Quantity not on file) [employer] Neuro- SC-2316-50E / / Description:Per Progress Not e from Dr. Ramirez, 08/24/2019: SCS leads removed, tip and intact. [employer] Neuro- Sc-2316-50e Precision Infinion 50cm 1x16 Splitter Trial Lead Kit - [id number] Implanted:Qty: 1 on 08/18/2019 by Ryan Ramirez MD at [facility] Explanted:2018 by Ryan Ramirez MD (Quantity not on file) [employer] Neuro- SC-2316-50E / / Description:Per Progress Not e from Dr. Ramirez, 08/24/2019: SCS leads removed, tip and intact. [employer] Jb Sc-4116 Precision Spectra 213cm 1x16 Splitter Extension Cable - [id number] Implanted:Qty: 1 on 08/18/2019 by Ryan Ramirez MD at [facility] Explanted:2018 by Ryan Ramirez MD (Quantity not on file) [employer] Jb SC-4116 / / Description:Per Progress Not e from Dr. Ramirez, 08/24/2019: SCS leads removed, tip and intact. Procedures Procedure Name Priority Date/Time Associated Diagnosis Comments ECG 12-LEAD Routine 02/28/2025 3:05 PM CDT PVC (premature ventricular contraction) from Last 3 Months Results * ECG 12 lead (02/28/2025 3:05 PM CDT) us Avni Hamilton MD ECG ORDERABLES Edited Result - Final from Last 3 Months Insurance [facility] MEDICARE ADVANTAGE [employer] [facility] MEDIC[facility] ADVANTAGE [facility] MEDIC[facility] Advance Directives For more information, please contact: [phone] * Full Code (Latest Code Status on File) Date Activated Date Inactivated Comments 01/29/2024 7:17 PM 01/30/2024 1:41 PM Care Teams Community Program Assistant Relationship Specialty Start Date End Date Ameya Burleson DO [address] [place], [place] [id number] PCP - General Internal Medicine 05/12/24
--- OUTSIDE RECORDS SUMMARY | 2025-03-30 16:15 | XMS_ITS | Encounter Summary ---
Author Organization [facility] Healthcare Address [address] [place] [address] Care Team Providers Care Rn House Supervisor Name Role Phone Ameya Burleson DO Primary Care Provider [phone] Debbie Marrero PT Unavailable [phone] Josse Mcfadden MD Primary Care Provider [phone] Ameya Burleson DO Primary Care Provider [phone] Reason for Visit * Reason Onset Date Comments cancel appt 05/04/2019 Encounter Details Date Type Department Care Team (Late st Contact Info) Description 05/04/2019 Telephone [facility] [place] [facility] [address] 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
--- OUTSIDE RECORDS SUMMARY | 2025-03-30 16:15 | XMS_ITS | Encounter Summary ---
Author Organization [facility] Healthcare Address [address] [place] [address] Care Team Providers Care Sheet Metal Helper Name Role Phone Ameya Burleson DO Primary Care Provider Josse Mcfadden MD Primary Care Provider [phone] Ameya Burleson DO Primary Care Provider [phone] Reason for Visit * Reason Onset Date Comments Prior Auth 11/23/2019 Methocarbamol 50 0mg Encounter Details Date Type Department Care Team (Late st Contact Info) Description 11/23/2019 Telephone [facility] [place] [facility] [address] [facility] Advanced Medicine [address] [place] [address] Ryan Ramirez MD [address] [place] [address] Prior Auth (Methocarbamol 500mg) Social History Tobacco [...] on file 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
--- OUTSIDE RECORDS SUMMARY | 2025-03-30 16:15 | XMS_ITS | Encounter Summary ---
Author Organization [facility] Healthcare Address [address] [place] [address] Care Team Providers Care Scarrer Name Role Phone Ameya Burleson DO Primary Care Provider [phone] Josse Mcfadden MD Primary Care Provider [phone] Ameya Burleson DO Primary Care Provider [phone] Reason for Visit * Reason Onset Date Comments Imaging 01/19/2020 Encounter Details Date Type Department Care Team (Late st Contact Info) Description 01/19/2020 Telephone [facility] [place] [facility] [address] [facility] Advanced Medicine [address] [place] [address] Ryan Ramirez MD [address] [place] [address] Imaging Social History Tobacco Use Types Packs/Day [...] on file 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
--- OUTSIDE RECORDS SUMMARY | 2025-03-30 16:15 | XMS_ITS | Encounter Summary ---
Author Organization [facility] Address [address] [place] [address] Phone Care Team Providers Care Airdox Fitter Name Role Phone Ameya Burleson DO Primary Care Provider [phone] Josse Mcfadden MD Primary Care Provider [phone] Ameya Burleson DO Primary Care Provider [phone] Encounter Details Date Type Department Care Team (Late st Contact Info) Description 01/27/2020 Documentation [facility] Physical Therapy [address] [facility] 1st [address] [place] [address] Debbie Marrero, PT [address] [facility] [address] [place] [address] Social History Tobacco Use Types [...] on file 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
--- OUTSIDE RECORDS SUMMARY | 2025-03-30 16:15 | XMS_ITS | Encounter Summary ---
Author Organization [facility] Healthcare Address [address] [place] [address] Care Team Providers Care Dealer Compliance Representative Name Role Phone Ameya Burleson DO Primary Care Provider [phone] Josse Mcfadden MD Primary Care Provider [phone] Ameya Burleson DO Primary Care Provider [phone] Reason for Visit * Reason Onset Date Comments Prior Auth 01/09/2020 Cyclobenzaprine 5mg Encounter Details Date Type Department Care Team (Late st Contact Info) Description 01/09/2020 Telephone [facility] at the [place] [facility] [address] [facility] Advanced Medicine [address] [place] [address] Ryan Ramirez MD [address] [place] [address] Prior Auth (Cyclobenzaprine 5mg) Social History Tobacco [...] on file 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
--- OUTSIDE RECORDS SUMMARY | 2025-03-30 16:15 | XMS_ITS | Encounter Summary ---
Author Organization [facility] Healthcare Address [address] [place] [address] Care Team Providers Care Superintendent Building Name Role Phone Ameya Burleson DO Primary Care Provider [phone] Valentine Carvajal DPT Unavailable [phone] Debbie Marrero PT Unavailable [phone] Josse Mcfadden MD Primary Care Provider [phone] Ameya Burleson DO Primary Care Provider [phone] Encounter Details Date Type Department Care Team (Late st Contact Info) Description 01/21/[address] 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 Gender Identity Not on file Sexual Orientation [...] on filedocumented in this encounter Care Teams Superintendent Building Relationship Specialty Start Date End Date Ameya Burleson DO PCP - General Internal Medicine 06/11/18 07/22/23 Josse Mcfadden MD PCP - General Family Practice 07/23/23 05/11/24 Ameya Burleson DO [address] [facility] [address] [place] [address] PCP - General Internal Medicine 05/12/24 Valentine Carvajal DPT Physical Therapist Physical Therapy 04/21/19 04/24/19 Debbie Marrero, PT Physical Therapist Physical Therapy 04/22/19 10/03/19 documented as of this encounter
--- OUTSIDE RECORDS SUMMARY | 2025-03-30 16:15 | XMS_ITS | Referral Summary ---
Author Organization [facility] Address [address] [place] [address] Care Team Providers Care Hold Worker Name Role Phone Ameya Burleson Primary Care Provider [phone] Encounters Date Type Department Care Team Description 02/28/2025 3:00 PM CDT Procedure visit [facility] Cardiology [address] [place] [address] PVC (premature ventricular contraction); Premature ventricular complex 02/28/2025 Telephone [facility] Cardiology [address] [place] [address] Avni Hamilton MD from Last 3 Months Allergies Active Allergy Reactions Criticality Noted Date [...] home xanax PVC (premature ventricular contraction) 12/05/19 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 [...] on file 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 Gender Identity Not on file Sexual Orientation [...] as needed Medical Devices Implanted Type Area Director Athletic Device Identifier Shelf Expiration Date Model / Serial / Lot [employer] Vascade Mvp 6-12fr Venous Closure [id number] - [id number] - [id number] Implanted:Qty: 1 on 01/29/2024 by Timothy Sabillon MD at [facility] Collagen Right: Femoral [employer] 06/30/2025 800-612C- 10U / [id number] 30C / [id number] 30C [employer] Vascade Mvp 6-12fr Venous Closure [id number] - [id number] - [id number] Implanted:Qty: 1 on 01/29/2024 by Timothy Sabillon MD at [facility] Collagen Left: Femoral [employer] 06/30/2025 800-612C- 10U / [id number] 30C / [id number] 30C [employer] Device Vascular Closure Femoral Artery Bioabsorbable Dual Method Vascade 6-7fr Collagen [id number] - [id number] - [id number] Implanted:Qty: 1 on 01/29/2024 by Timothy Sabillon MD at [facility] Collagen Left: Femoral [employer] 10/27/2025 700-580I- 05U / [id number] 26A / [id number] 26A [employer] Device Closure Vascade Od5 Fr Femoral Artery [id number] - [id number] - [id number] Implanted:Qty: 1 on 01/29/2024 by Timothy Sabillon MD at [facility] Collagen Right: Femoral [employer] 10/07/2025 700-500DX -05U / [id number] 131A / [id number] 131A Lumbar Spine Fusion Instrumentation, Cage Spine Lumbar Cervical Spine Fusion Instrumentation, Cage Implanted:1988 (Quantity not on file) Lumbar-Sac ral Spine Explanted Type Area Director Athletic Device Identifier Shelf Expiration Date Model / Serial / Lot [employer] Neuro- Sc-2316-50e Precision Infinion 50cm 1x16 Splitter Trial Lead Kit - [id number] Implanted:Qty: 1 on 08/18/2019 by Ryan Ramirez MD at [facility] Explanted:2018 by Ryan Ramirez MD (Quantity not on file) [employer] Neuro- SC-2316-50E / / Description:Per Progress Not e from Dr. Ramirez, 08/24/2019: SCS leads removed, tip and intact. [employer] Neuro- Sc-2316-50e Precision Infinion 50cm 1x16 Splitter Trial Lead Kit - [id number] Implanted:Qty: 1 on 08/18/2019 by Ryan Ramirez MD at [facility] Explanted:2018 by Ryan Ramirez MD (Quantity not on file) [employer] Neuro- SC-2316-50E / / Description:Per Progress Not e from Dr. Ramirez, 08/24/2019: SCS leads removed, tip and intact. [employer] Jb Sc-4116 Precision Spectra 213cm 1x16 Splitter Extension Cable - [id number] Implanted:Qty: 1 on 08/18/2019 by Ryan Ramirez MD at [facility] Explanted:2018 by Ryan Ramirez MD (Quantity not on file) [employer] Jb SC-4116 / / Description:Per Progress Not e from Dr. Ramirez, 08/24/2019: SCS leads removed, tip and intact. Procedures Procedure Name Priority Date/Time Associated Diagnosis Comments ECG 12-LEAD Routine 02/28/2025 3:05 PM CDT PVC (premature ventricular contraction) from Last 3 Months Results * ECG 12 lead (02/28/2025 3:05 PM CDT) Avni Hamilton MD ECG ORDERABLES Edited Result - Final from Last 3 Months Insurance [facility] MEDICARE ADVANTAGE [place] [facility] MEDICARE ADVANTAGE [employer] MEDICARE ADVANTAGE Advance Directives For more information, please contact: [phone] * Full Code (Latest Code Status on File) Date Activated Date Inactivated Comments 01/29/2024 7:17 PM 01/30/2024 1:41 PM Care Teams Hold Worker Relationship Specialty Start Date End Date Ameya Burleson DO [address] [facility] [address] [place], [place] [address] PCP - General Internal Medicine 05/12/24
--- OUTSIDE RECORDS SUMMARY | 2025-03-30 16:16 | XMS_ITS | Clinical Summary ---
Author Organization [facility] Address [facility] [place] [address] Care Team Providers Care Commutator Operator Name Role Phone Unavailable Primary Care Provider [...]
--- OUTSIDE RECORDS SUMMARY | 2025-03-30 16:16 | XMS_ITS | Encounter Summary ---
Author Organization [facility] Healthcare Address [address] [place] [address] Care Team Providers Care Pre Billing Specialist Name Role Phone Ameya Burleson DO Primary Care Provider [phone] Valentine Carvajal DPT Unavailable [phone] Debbie Marrero PT Unavailable [phone] Josse Mcfadden MD Primary Care Provider [phone] Ameya Burleson DO Primary Care Provider [phone] Reason for Visit * Reason Onset Date Comments Scheduling Appointments 04/14/2019 Encounter Details Date Type Department Care Team (Late st Contact Info) Description 04/14/2019 Telephone [facility] [address] [address] Ryan Ramirez MD [address] [place] [address] Scheduling Appointments Social History Tobacco Use Types [...] on file 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 Gender Identity Not on file Sexual Orientation [...] on filedocumented in this encounter Care Teams Pre Billing Specialist Relationship Specialty Start Date End Date Ameya Burleson DO PCP - General Internal Medicine 06/11/18 07/22/23 Josse Mcfadden MD PCP - General Family Practice 07/23/23 05/11/24 Ameya Burleson DO [address] [facility] [address] [place] [address] PCP - General Internal Medicine 05/12/24 Valentine Carvajal DPT Physical Therapist Physical Therapy 04/21/19 04/24/19 Debbie Marrero PT Physical Therapist Physical Therapy 04/22/19 10/03/19 documented as of this encounter
--- OUTSIDE RECORDS SUMMARY | 2025-03-30 16:16 | XMS_ITS | Clinical Summary ---
Author Organization [facility] Address [address], [facility] [address] [place] [address] Phone Care Team Providers Care Insurance Territory Manager Name Role Phone Ameya Burleson Primary Care Provider [phone] Allergies Active Allergy Reactions Criticality Noted Date [...] 10:46 AM CDT Height 175.3 cm (5' 9) 06/06/2020 10:46 AM CDT Body Mass Index 23.33 06/06/2020 10:46 AM CDT Plan of Treatment Health Maintenance Due Date Last Done Comments Hepatitis C Virus (HCV) Screening 1955 TdaP Immunization 1955 Cologuard 2002 Immunochemical Fecal Occult Blood 2002 Pneumococcal Immunization (50+ years) (1 of 1 - PCV) 12/28/2007 Zoster Immunization (1 of 2) 12/28/2007 SARS-COV-2 Immunization (3 - season) 2024 05/02/2021, 04/11/2021 Influenza Immunization (#1) 05/09/202505/10, 06/01/2018, 06/10/2017, Additional history exists Colonoscopy 08/07/2025 08/07/2020, 08/24/2018 Colorectal Cancer Screening 08/07/2025 Respiratory Syncytial Virus (RSV) Immunization (Adult) (1 - 1-dose 75+ series) 2032 Hepatitis B Immunization Aged Out No longer eligible based on patient's age to complete this topic Human Papillomavirus (HPV) Immunization Aged Out No longer eligible based [...] Relevant to Health Maintenance Insurance MEDICARE C [facility] Care Teams Insurance Territory Manager Relationship Specialty Start Date End Date Ameya Burleson DO [address] [place] [address] PCP - General Internal Medicine 08/13/18
[2025-03-30 17:00] LABS: Estimated Glomerular Filt Rate 51
[2025-03-30 17:25] LABS: Hematocrit 43.3 % (42.0-52.0); Hemoglobin 14.1 g/dL (14.0-18.0); Mean Corpuscular HGB Conc 32.6 g/dl (32-36); Mean Corpuscular Hemoglobin 31.1 pg (26-34); Mean Corpuscular Volume 95.6 fl (80-100); Platelet Count Result 220 k/mm3 (150-375); Red Blood Count 4.53 M/mm3 (4.6-6.20); White Blood Count 8.0 K/mm3 (4.5-10.0)
[2025-03-30 17:26] LABS: Add Urine Microscopic? NO; Appearance Urine Clear (Clear); Glucose Urine UA Negative (Negative); Leukocyte Esterase Ur Negative LEU/UL (Negative); Nitrate Urine Negative (Negative); Specific Grav Ur 1.037 (1.001-1.035)
[2025-03-30 17:46] LABS: Alanine Aminotransferase 18 U/L (6-50); Albumin Level 4.1 g/dL (3.5-5.1); Alkaline Phosphatase 60 U/L (38-126); Anion Gap 7 mmol/L (4-12); Aspartate Amino Transferase 30 U/L (17-59); Bilirubin,Total 1.4 mg/dL (0.2-1.3); Blood Urea Nitrogen 18 mg/dL (9-20); Calcium 9.1 mg/dL (8.4-10.2); Carbon Dioxide 25 mmol/L (22-30); Chloride 100 mmol/L (98-107); Estimated Glomerular Filt Rate > 60; Glucose 93 mg/dL (65-110); Potassium 4.0 mmol/L (3.4-5.0); Sodium 132 mmol/L (137-145); Total Protein 6.9 g/dL (6.3-8.2)
[2025-03-30 18:54] LABS: Thyroid Stimulating Hormone 2.490 uIU/mL (0.465-4.680)
== END 2025-03-30 16:11 | disposition home or self-care (01) ==
PROVIDERS: PCP Internal Medicine; Visit Provider Nurse Practitioner
DX: R10.11 Right upper quadrant pain (principal); R63.4 Abnormal weight loss; K57.30 Diverticulosis of large intestine without perforation or abscess without bleeding; N40.0 Benign prostatic hyperplasia without lower urinary tract symptoms; N28.1 Cyst of kidney, acquired
CPT/HCPCS: 36415; 74177; 80053; 81003; 84443; 85027; Q9967

== ENCOUNTER 2025-05-12 09:08 | Outpatient (CLI) | payer MEDICARE, SELFPAY ==
--- OUTSIDE RECORDS SUMMARY | 2025-02-23 12:30 | XMS_ITS ---
Author Organization [facility] [employer] [place] ([address]) Address [address] [facility] [address] [place] [address] Care Team Providers Care Counter Roller Name Role Phone Ameya Burleson Primary Care Provider Opal Gaines Unavailable [phone] REASON FOR VISIT Chronic upper airway symptoms [...] Male Encounters Encounter Location Date Provider Diagnosis [facility] [address] [facility] [address] [place] [address] 02/23/2025 Opal Bowens Allergic rhinitis du e [...] Notes * Connor JEREZDOB:1955 (69 yo M)Acc No.[id number]:02/23/2025 Progress Notes Patient: Connor CORTEZ Provider: Olivier Bowens MD :1955 A ge:69 Y S ex:Male Date:02/23/2025 Address:[address] [place], [place] [id number] Pcp:Ameya Burleson Subjective: * Chief Complaints: * [...] 9 5004 PRICK TESTS, Units: 72.00 , 45586 INTRADERMAL TESTS, Units: 16.00 , 05785 PT-FOCUSED HLTH RISK ASSMT, G8427 DOC MEDS [...] Management) * Billing Information: * Visit Code: 03553 Office Visit, New Pt., Level 3. Modifiers: 25 * Procedure Codes: 72888 PRICK TESTS. Units: 72.00. 56769 INTRADERMAL TESTS. Units: 16.00. 15921 PT-FOCUSED HLTH RISK ASSMT. G8427 DOC MEDS VERIFIED W/PT OR RE. * Electronic signature of Judy Bowens MD on 05/12/2025 at 09:21 AM CDT Sign off status: Pending * Provider: Olivier Bowens MD Date: 0 02/23/2025 Generated for Arpit thurman/Kim/Kirsty on: 0 05/12/2025 09:21 AM CDT History and Physical Notes * [...]
--- OUTSIDE RECORDS SUMMARY | 2025-05-12 09:21 | XMS_ITS | Clinical Summary ---
Author Organization [facility] Address [address], [facility] [address] [place] [address] Phone Care Team Providers Care Md Ophthalmologist Name Role Phone Ameya Burleson Primary Care Provider [phone] Allergies Active Allergy Reactions Criticality Noted Date [...] (1 of 2) 12/28/2007 Influenza Immunization (#1) 05/09/202505/10, 06/01/2018, 06/10/2017, Additional history exists SARS-COV-2 Immunization ( - 2024- season) 2025 05/02/2021, 04/11/2021 Colonoscopy 08/07/2025 08/07/2020, 08/24/2018 Colorectal [...] Relevant to Health Maintenance Insurance MEDICARE C [facility] Care Teams Md Ophthalmologist Relationship Specialty Start Date End Date Ameya Burleson DO [address] [place] [address] PCP - General Internal Medicine 08/13/18
--- OUTSIDE RECORDS SUMMARY | 2025-05-12 09:21 | XMS_ITS | Encounter Summary ---
Author Organization [facility] Healthcare Address [address] [place] [address] Care Team Providers Care Clinical Appeals Specialist Name Role Phone Ameya Burleson DO Primary Care Provider Valentine Carvajal DPT Unavailable [phone] Debbie Marrero PT Unavailable [phone] Josse Mcfadden MD Primary Care Provider [phone] Ameya Burleson DO Primary Care Provider [phone] Encounter Details Date Type Department Care Team (Late st Contact Info) Description 01/21/2019 Telephone [facility] [address] 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
--- OUTSIDE RECORDS SUMMARY | 2025-05-12 09:21 | XMS_ITS | Encounter Summary ---
Author Organization [facility] Address [address] [facility] [place] [address] Care Team Providers Care Borough Coordinator Name Role Phone Ameya Burleson Primary Care Provider Encounter Details Date Type Department Care Team (Late st Contact Info) Description 05/05/2025 Lab Requisition [facility] - DermPath Lab [address] [facility] [place] [address] Shweta Smiley DO [address] [facility] [address] [place] [address] Social History Tobacco Use Types Packs/Day Years Used Date Smoking Tobacco: Never Assessed Sex and Gender Information Value Date Recorded Sex Assigned at Not on file 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 Gender Identity Not on file Sexual Orientation Not on file documented as of this encounter Plan of Treatment Not on file documented as of this encounter Procedures Procedure Name Priority Date/Time Associated Diagnosis Comments DERMATOPATHOLOGY Routine 05/05/2025 10:0 0 AM CDT documented in this encounter Results * DERMATOPATHOLOGY (05/05/2025 10:00 AM CDT) Case Report Dermatopathology Report Case: [id number] Authorizing Provider: Shweta Smiley DO Collected: 05/05/2025 10:00 AM Ordering Location: [facility] - Received: 05/06/2025 08:25 AM DermPath Lab Pathologist: Jacquelyn Peralta MD Specimen: Skin, midback 12:30 PM CDT DERMATOPATHOLOGY LABORATORY Final Diagnosis Specimen A. SKIN, midback: SEBORRHEIC KERATOSIS, INFLAMED (L82.0) 12:30 PM CDT DERMATOPATHOLOGY LABORATORY at 1230 CDT Clinical History SK; R/O NMSC 12:30 PM CDT DERMATOPATHOLOGY LABORATORY Gross Description Specimen A: Received is one formalin filled container labeled with the patient's name and designated midback. The specimen consists of a shave biopsy measuring 9x5x2 mm. Inked green. Jar 0. 12:30 PM CDT DERMATOPATHOLOGY LABORATORY Microscopic Description Specimen A. SKIN, midback: There is hyperkeratosis, parakeratosis, papillomatosis, and acanthosis of the epidermis. 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 12:30 PM CDT DERMATOPATHOLOGY LABORATORY Disclaimer An external and internal positive and negative controls are appropriate for the histochemical, immunohistochemical and immunofluorescence stain(s) in this case (if any), except where stated explicitly. The performance characteristics of the stain(s) cited in this report were developed and its performance characteristic determined by the Dermatopathology Laboratory at [facility], directed by Dr. Sofía Peralta. These tests need not be, and therefore are not, approved by the [place] Food and Drug Administration. The tests are used for clinical purposes. Billing Codes Specimen Charges Stain Charges 02574 1 12:30 PM CDT DERMATOPATHOLOGY LABORATORY Embedded Images 12:30 PM CDT DERMATOPATHOLOGY LABORATORY Pathology/Cytolo gy TISSUE SPECIMEN FROM SKIN / Unknown 05/05/2025 10:00 AM CDT 05/06/2025 8:25 AM CDT us Shweta Smiley DO LAB - PATHOLOGY/CYTOLOGY ORDERABLES Final Result DERMATOPATHOLOGY LABORATORY [facility] - Department of Dermatology [address], [address] [phone] documented in this encounter Visit Diagnoses Not on filedocumented in this encounter Care Teams Borough Coordinator Relationship Specialty Start Date End Date Ameya Burleson DO [address] [facility] [address] [place] [address] PCP - General 09/28/18 documented as of this encounter
--- OUTSIDE RECORDS SUMMARY | 2025-05-12 09:21 | XMS_ITS | Patient Health Record ---
Author Organization [facility] [email or web address] [facility] Address [address] [facility] [address] [place] [address] Care Team Providers Care Glass Melt Operator Name Role Phone Jaime HANNAH, Jayesh Primary Care Provider Faye Elizabeth Unavailable [phone] Reason For Referral No Information Medications Medication SIG (Take, Route, Frequency, Duration) Notes Start Date End Date Status Tamsulosin HCl 0.4 MG Capsule Oral Active Amoxicillin 500 MG Capsule Oral Active predniSONE 20 MG Tablet Oral Active Potassium Chloride ER 20 MEQ Tablet Extended Release Oral Active levoFLOXacin 500 MG Tablet Oral Active Sildenafil Citrate 100 MG Tablet Oral Active Fluorouracil 5 % Cream External Active Mometasone Furoate 0.1 % Ointment External Active levoFLOXacin 750 MG Tablet Oral Active ALPRAZolam 1 MG Tablet Oral Active Azithromycin 250 MG Tablet Oral Active Cefdinir 300 MG Capsule Oral Active Social History Sex Assigned At : Social History Observation Description Sex Assigned At Male Social History Additional Details Category Social Info Options Details Migrated Social History Migrated Social History Tobacco Years: Never smoker 03/31/2023 Encounters Encounter Location Date Provider Diagnosis [facility] [address] [facility] [address] [facility] [address] [place] [address] 03/18/2025 Faye Covington Plan Of Treatment No Information Insurance Providers Payer Name Payer Address Payer Phone Subscriber Number Group Number Insured Name Patient Relationship to Insured Coverage Start Date Coverage End Date [employer] Medicare Replacement/ Advantage - Ppo [address] [address] [place] [address] [id number] JANE JEREZ Self - patient is the insured
--- OUTSIDE RECORDS SUMMARY | 2025-05-12 09:21 | XMS_ITS | Patient Health Record ---
Author Organization [employer] [place] ([address]) Address [address] [facility] [address] [place] [address] Care Team Providers Care Biological Technical Officer Name Role Phone Ameya Burleson Primary Care Provider Opal Gaines Unavailable [phone] Allergies No Known Allergies Reason For Referral No Information Medications Medication SIG (Take, Route, Frequency, Duration) Notes Start Date End Date Status Nasal Washes N/A as directed intranasally Active Azelastine HCl 137 MCG/SPRAY 2 sprays in each nostril Nasally Twice a day; Duration: 30 days Active Levocetirizine Dihydrochloride 5 MG 1 tablet in the evening Orally Once a day; Duration: 30 days Active Tamsulosin HCl 0.4 MG 1 capsule Orally O nce a day Active Xanax 1 MG 1 tablet Orally Twic e a day Active Metoprolol Succinate Active Social History Tobacco Use: Social History Observation Description Date Details (start date - stop date) Never Smoker NA - NA Sex Assigned At : Social History Observation Description Sex Assigned At Male Tobacco Control (Standard) Question Answer Notes Tobacco use: Nonsmoker Section Notes: no animals in the home no basement in 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, 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 Problems Problem Type SNOMED Code ICD Code Onset Dates Problem Status W/U Status Risk Notes Problem Chronic allergic conjunctivitis (02266494) Other chronic allergic conjunctivitis (H10.45) Active confirmed Problem Allergic rhinitis caused by pollen (disorder) (24324332) Allergic rhinitis due to pollen (J30.1) Active confirmed Problem Allergic rhinitis (18286271) Other allergic rhinitis (J30.89) Active confirmed Problem Allergic rhinitis caused by animal hair and dander (758093486253182) Allergic rhinitis due to animal (cat) (dog) hair and dander (J30.81) Active confirmed Vital Signs Blood pressure diastolic 69 mm Hg 01/26/2025 Oximetry 99 % 01/26/2025 Height 69 in 01/26/2025 Blood pressure systolic 115 mm Hg 01/26/2025 Weight 158.2 lbs 01/26/2025 BMI 23.36 kg/m2 01/26/2025 Encounters Encounter Location Date Provider Diagnosis [facility] [address] [facility] [address] [place] [address] 01/26/2025 Opal Sturm Allergic rhinitis du e to pollen J30.1 ; Allergic rhinitis due to animal (cat) (dog) hair and dander J30.81 ; Other allergic rhinitis J30.89 and Other chronic allergic conjunctivitis H10.45 Assessments Encounter Date Diagnosis (ICD Code) Assessment Notes Treatment Notes Treatment Clinical Notes Section Notes 01/26/2025 Allergic rhinitis due to pollen (ICD-10 - [...] 1 month for interval evaluation and management 01/26/2025 Allergic rhinitis due to animal (cat) (dog) hair and dander (ICD-10 - J30.81) Follow allergen avoidance, meds and consider SCIT as an adjunctive treatment to current regimen 01/26/2025 Other allergic rhinitis (ICD-10 - J30.89) Follow allergen avoidance, meds and consider SCIT as an adjunctive treatment to current regimen 01/26/2025 Other chronic allergic conjunctivitis (ICD-10 - H10.45) Given ocular signs and symptoms I encouraged allergy avoidance measures and meds as above. If symptoms persist, consider adding additional medications including intraocular antihistamine/mas t cell stabilizer, PRN and consider SCIT as an adjunctive measure Plan Of Treatment No Information Insurance Providers Payer Name Payer Address Payer Phone Subscriber Number Group Number Insured Name Patient Relationship to Insured Coverage Start Date Coverage End Date U[employer] Medicare [address] [address] [place] [address] [id number] Connor Hicks Self - patient is the insured [employer] Plan [address] [place] [id number] Connor Hicks Self - patient is the insured Medical (General) History Medical History History ICD Code Dysthymic disorder F34.1 Premature ventricular contractions Surgical History Surgery Date(Month/Year) PVC ablation 02/2024 Hospitalization History Reason Date(Month/Year) See Above
--- OUTSIDE RECORDS SUMMARY | 2025-05-12 09:21 | XMS_ITS | Encounter Summary ---
Author Organization [facility] Healthcare Address [address] [place] [address] Care Team Providers Care Elevator Attendant Name Role Phone Ameya Burleson DO Primary Care Provider [phone] Debbie Marrero PT Unavailable [phone] Josse Mcfadden MD Primary Care Provider [phone] Ameya Burleson DO Primary Care Provider [phone] Encounter Details Date Type Department Care Team (Late st Contact Info) Description 06/30/[address] 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
--- OUTSIDE RECORDS SUMMARY | 2025-05-12 09:21 | XMS_ITS | Encounter Summary ---
Author Organization [facility] Healthcare Address [address] [place] [address] Care Team Providers Care Child Watch Attendant Name Role Phone Ameya Burleson DO Primary Care Provider [phone] Josse Mcfadden MD Primary Care Provider [phone] Ameya Burleson DO Primary Care Provider [phone] Reason for Visit * Reason Onset Date Comments Prior Auth 01/09/2020 Cyclobenzaprine 5mg Encounter Details Date Type Department Care Team (Late st Contact Info) Description 01/09/2020 Telephone [facility] [place] [facility] [address] [facility] Advanced Medicine [address] [place] [address] Ryan Ramirez MD [address] [place] [address] Prior Auth (Cyclobenzaprine 5mg) Social History Tobacco [...] on file 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
--- OUTSIDE RECORDS SUMMARY | 2025-05-12 09:21 | XMS_ITS | Encounter Summary ---
Author Organization [facility] Healthcare Address [address] [place] [address] Care Team Providers Care Retail Experience Specialist Name Role Phone Ameya Burleson DO Primary Care Provider [phone] Valentine Carvajal DPT Unavailable [phone] Debbie Marrero PT Unavailable [phone] Josse Mcfadden MD Primary Care Provider [phone] Ameya Burleosn DO Primary Care Provider Reason for Visit * Reason Onset Date Comments Scheduling Appointments 04/14/2019 Encounter Details Date Type Department Care Team (Late st Contact Info) Description 04/14/2019 Telephone [facility] [address] [address] Ryan Ramirez MD [address] [place] [address] Scheduling Appointments Social History Tobacco Use Types [...] on file 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 Gender Identity Not on file Sexual Orientation [...] on filedocumented in this encounter Care Teams Retail Experience Specialist Relationship Specialty Start Date End Date Ameya Burleson DO PCP - General Internal Medicine 06/11/18 07/22/23 Josse Mcfadden MD PCP - General Family Practice 07/23/23 05/11/24 Ameya Burleson DO [address] [facility] [address] [place] [address] PCP - General Internal Medicine 05/12/24 Valentine Carvajal DPT Physical Therapist Physical Therapy 04/21/19 04/24/19 Debbie Marrero PT Physical Therapist Physical Therapy 04/22/19 10/03/19 documented as of this encounter
--- OUTSIDE RECORDS SUMMARY | 2025-05-12 09:21 | XMS_ITS | Encounter Summary ---
Author Organization [facility] Address [address] [place] [address] Phone Care Team Providers Care Management Trainer Name Role Phone Ameya Burleson DO Primary Care Provider [phone] Josse Mcfadden MD Primary Care Provider [phone] Ameya Burleson DO Primary Care Provider [phone] Encounter Details Date Type Department Care Team (Late st Contact Info) Description 01/27/2020 Documentation [facility] Medicine Physical Therapy [address] [facility] 1st Floor [address] [place] [address] Debbie Marrero, PT [address] [facility] [address] [place] [address] Social History Tobacco Use Types [...] on file 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
--- OUTSIDE RECORDS SUMMARY | 2025-05-12 09:21 | XMS_ITS | Encounter Summary ---
Author Organization [facility] Healthcare Address [address] [place] [address] Care Team Providers Care Power Plant Technician Name Role Phone Ameya Burleson DO Primary Care Provider [phone] Josse Mcfadden MD Primary Care Provider [phone] Ameya Burleson DO Primary Care Provider [phone] Reason for Visit * Reason Onset Date Comments Prior Auth 11/23/2019 Methocarbamol 50 0mg Encounter Details Date Type Department Care Team (Late st Contact Info) Description 11/23/2019 Telephone [facility] [address] [facility] Advanced Medicine [address] [place] [address] Ryan Ramirez MD [address] [place] [address] Prior Auth (Methocarbamol 500mg) Social History Tobacco [...] on file 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
--- OUTSIDE RECORDS SUMMARY | 2025-05-12 09:21 | XMS_ITS | Encounter Summary ---
Author Organization [facility] Healthcare Address [address] [place] [address] Care Team Providers Care Muck Boss Name Role Phone Ameya Burleson DO Primary Care Provider [phone] Josse Mcfadden MD Primary Care Provider [phone] Ameya Burleson DO Primary Care Provider [phone] Reason for Visit * Reason Onset Date Comments Imaging 01/19/2020 Encounter Details Date Type Department Care Team (Late st Contact Info) Description 01/19/2020 Telephone [facility] [place] [facility] [address] [facility] Advanced Medicine [address] [place] [address] Ryan Ramirez MD [address] [place] [address] Imaging Social History Tobacco Use Types Packs/Day [...] on file 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
--- OUTSIDE RECORDS SUMMARY | 2025-05-12 09:21 | XMS_ITS | Clinical Summary ---
Author Organization [facility] Address [address] [place] [address] Care Team Providers Care Ball Thread Machine Tender Name Role Phone Ameya Burleson DO Primary Care Provider Allergies Active Allergy Reactions Criticality Noted Date [...] Description 02/28/2025 3:00 PM CDT Procedure visit [facility] Cardiology [address] [place] [address] PVC (premature ventricular contraction); Premature ventricular complex 02/28/2025 Telephone [facility] Cardiology [address] [place] [address] Avni Hamilton MD from Last 3 Months Immunizations Immunization Administration Dates Next Due Influenza, Quadrivalent, Spl it, Preservative Free, Intramuscular 06/02/2018 Surgical History Surgery Date Site/Laterality Comments CERVICAL FUSION Cervical Vertebral Fusion - (Added by TW Conv) ROTATOR CUFF REPAIR Rotator Cuff Repair - (Added by TW Conv) NM UNLISTED PROCEDURE ABDOME N PERITONEUM & OMENTUM Hernia Repair - (Added by TW Conv) NM EXCISION 1ST &/CERVICAL RIB Thorax Excision Of [...] on file 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 Gender Identity Not on file Sexual Orientation [...] Fall Risk Assessment 01/29/2025 01/30/2024 Influenza Vaccine (#1) 2025 , 06/05/2020, 06/03/2019, Additional history exists Goals Goal [...] as needed Medical Devices Implanted Type Area Refinery Pipeline Operator Device Identifier Shelf Expiration Date Model / Serial / Lot [employer] Vascade Mvp 6-12fr Venous Closure [id number] - [id number] - [id number] Implanted:Qty: 1 on 01/29/2024 by Timothy Sabillon MD at [facility] Collagen Right: Femoral [employer] 06/30/2025 800-612C- 10U / [id number] 30C / [id number] 30C [employer] Vascade Mvp 6-12fr Venous Closure [id number] - [id number] - [id number] Implanted:Qty: 1 on 01/29/2024 by Timothy Sabillon MD at [facility] Collagen Left: Femoral [employer] 06/30/2025 800-612C- 10U / [id number] 30C / [id number] 30C [employer] Device Vascular Closure Femoral Artery Bioabsorbable Dual Method Vascade 6-7fr Collagen [id number] - [id number] - [id number] Implanted:Qty: 1 on 01/29/2024 by Timothy Sabillon MD at [facility] Collagen Left: Femoral [employer] 10/27/2025 [id number]- 05U / [id number] 26A / [id number] 26A [employer] Device Closure Vascade Od5 Fr Femoral Artery [id number] - [id number] - [id number] Implanted:Qty: 1 on 01/29/2024 by Timothy Sabillon MD at [facility] Collagen Right: Femoral [employer] 10/07/2025 [id number] -05U / [id number] 131A / [id number] 131A Lumbar Spine Fusion Instrumentation, Cage Spine Lumbar Cervical Spine Fusion Instrumentation, Cage Implanted:1988 (Quantity not on file) Lumbar-Sac ral Spine Explanted Type Area Refinery Pipeline Operator Device Identifier Shelf Expiration Date Model / Serial / Lot [employer] Neuro- Sc-2316-50e Precision Infinion 50cm 1x16 Splitter Trial Lead Kit - [id number] Implanted:Qty: 1 on 08/18/2019 by Ryan Ramirez MD at [facility] Explanted:2018 by Ryan Ramirez MD (Quantity not on file) [employer] Neuro- SC-2316-50E / / Description:Per Progress Not e from Dr. Ramirez, 08/24/2019: SCS leads removed, tip and intact. [employer] Neuro- Sc-2316-50e Precision Infinion 50cm 1x16 Splitter Trial Lead Kit - [id number] Implanted:Qty: 1 on 08/18/2019 by Ryan Ramirez MD at [facility] Explanted:2018 by Ryan Ramirez MD (Quantity not on file) [employer] Neuro- SC-2316-50E / / Description:Per Progress Not e from Dr. Ramirez, 08/24/2019: SCS leads removed, tip and intact. [employer] Jb Sc-4116 Precision Spectra 213cm 1x16 Splitter Extension Cable - [id number] Implanted:Qty: 1 on 08/18/2019 by Ryan Ramirez MD at [facility] Advanced Medicine Explanted:2018 by Ryan Ramirez MD (Quantity not on file) [employer] Bj SC-[id number] / / Description:Per Progress Not e [...] - Final from Last 3 Months Insurance [facility] MED[facility] Address: [address] [address] [place] [address] [facility] ADV[facility] Address: [address] [address] [place] [address] [facility] MEDIC[facility] ADV[facility]AGE [facility] Address: [address] [address] [place] [address] Advance Directives For more information, please contact: [phone] * Full Code (Latest Code Status on File) Date Activated Date Inactivated Comments 01/29/2024 7:17 PM 01/30/2024 1:41 PM Care Teams Ball Thread Machine Tender Relationship Specialty Start Date End Date Ameya Burleson DO [address] [facility] [address] [place], [place] [id number] PCP - General Internal Medicine 05/12/24
--- OUTSIDE RECORDS SUMMARY | 2025-05-12 09:21 | XMS_ITS | Clinical Summary ---
Author Organization [facility] Address [address] [place] [address] Care Team Providers Care Manager Appointment Name Role Phone Ameya Burleson DO Primary Care Provider [phone] Source Comments [facility],non-owned Affiliates and Associated Physician Practices is amultiple site organization consisting of ambulatory clinics and hospital sitesin [place], [place], [place] and [place]. This disclosure is being madepursuant to the Care Everywhere program and may not contain all information available regarding this patient. 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 Gender Identity Not on file Sexual Orientation Not on file Plan of Treatment Health Maintenance Due Date Last Done Comments COLOGUARD (AGES 45-75) - COL ON CA SCREENING 1957 COLON MONITORING 1957 COLONOSCOPY - COLON CA SCREENING 1957 CT COLONOGRAPHY - COLON CA SCREENING 1957 Colorectal Cancer Screening 1957 FIT - COLON CA SCREENING 1957 FLEX SIG - COLON CA SCREENING 1957 LIPID TESTING 1957 HEPATITIS C SCREENING 12/23/1975 DTAP/TDAP/TD VACCINES (1 - Tdap) 1976 PNEUMOCOCCAL VACCINE 50+ (1 of 1 - PCV) 12/28/2007 ZOSTER VACCINE (1 of 2) 12/28/2007 DEPRESSION SCREENING 09/08/2024 MEDICARE AWV CALENDAR YEAR 2024 COVID-19 VACCINE (1 - 2023-2 5 season) 2025 INFLUENZA VACCINE (#1) 2025 Respiratory Syncytial Virus (RSV) Vaccine Pt: or over 60 yrs (1 - 1-dose 75+ series) 2032 HEPATITIS B VACCINE Aged Out No longe r eligible based on patient's age to complete this topic HIB VACCINE Aged Out No longer eligi ble based on patient's age to complete this topic HPV VACCINE Aged Out No longer eligi ble based on patient's age to complete this topic MENINGOCOCCAL (Group B) VACC INE SHARED DECISION-MAKING Aged Out No longer eligibl e based on patient's age to complete this topic MENINGOCOCCAL GROUPS A/C/Y/W VACCINE Aged Out No longer eligible b ased on patient's age to complete this topic Procedures Procedure Name Priority Date/Time Associated Diagnosis Comments DERMATOPATHOLOGY Routine 05/05/2025 10:0 0 AM CDT from Last 3 Months Results * DERMATOPATHOLOGY (05/05/2025 10:00 AM CDT) Case Report Dermatopathology Report Case: [id number] Authorizing Provider: Shweta Smiley DO Collected: 05/05/2025 10:00 AM Ordering Location: [facility] - Received: 05/06/2025 08:25 AM [...] mm. Inked green. Jar 0. 12:30 PM T DERMATOPATHOLOGY LABORATORY Microscopic Description Specimen A. SKIN, midback: There is hyperkeratosis, parakeratosis, papillomatosis, and acanthosis of the epidermis. 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 12:30 PM T DERMATOPATHOLOGY LABORATORY Disclaimer An external and internal positive and negative controls are appropriate for the histochemical, immunohistochemical and immunofluorescence stain(s) in this case (if any), except where stated explicitly. The performance characteristics of the stain(s) cited in this report were developed and its performance characteristic determined by the Dermatopathology Laboratory at [facility], directed by Dr. Sofía Peralta. These tests need not be, and therefore are not, approved by the [place] Food and Drug Administration. The tests are used for clinical purposes. Billing Codes Specimen Charges Stain Charges 73905 1 12:30 PM CDT DERMATOPATHOLOGY LABORATORY Embedded Images 12:30 PM CDT DERMATOPATHOLOGY LABORATORY Pathology/Cytolo gy TISSUE SPECIMEN FROM SKIN / Unknown 05/05/2025 10:00 AM CDT 05/06/2025 8:25 AM CDT us Shweta Smiley DO LAB - PATHOLOGY/CYTOLOGY ORDERABLES Final Result DERMATOPATHOLOGY LABORATORY [facility] - Department of Dermatology [facility] Medicine [address] [place] [address], [address] [phone] from Last 3 Months Insurance [facility] MANAGED MEDICARE ADV [facility] MANAGED MEDICARE ADV Care Teams Manager Appointment Relationship Specialty Start Date End Date Ameya Burleson DO [address] [place] [address] PCP - General 09/28/18
--- OUTSIDE RECORDS SUMMARY | 2025-05-12 09:21 | XMS_ITS | Encounter Summary ---
Author Organization [facility] Address [address] [place] [address] Care Team Providers Care Children'S Minister Name Role Phone Ameya Burleson DO Primary Care Provider [phone] Debbie Marrero PT Unavailable [phone] Josse Mcfadden MD Primary Care Provider [phone] Ameya Burleson DO Primary Care Provider [phone] Reason for Visit * Reason Onset Date Comments cancel appt 05/04/2019 Encounter Details Date Type Department Care Team (Late st Contact Info) Description 05/04/2019 Telephone [facility] [address] [facility] 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
[2025-05-16 08:08] LABS: Calprotectin, Fecal 20 ug/g (0-120)
== END 2025-05-12 09:09 | disposition home or self-care (01) ==
PROVIDERS: PCP Nurse Practitioner; Visit Provider Nurse Practitioner Family
DX: R10.31 Right lower quadrant pain (principal); R63.4 Abnormal weight loss
CPT/HCPCS: 83993; 87045; 87046; 87427

== ENCOUNTER 2025-07-22 08:23 | Outpatient (CLI) | payer MEDICARE, SELFPAY ==
--- NOTE | ~2025-07-22 | MR_ITS ---
EXAMINATION: MR pelvis wo con DATE: 07/22/2025 09:13 INDICATION: Right lower quadrant pain. TECHNIQUE: Magnetic resonance imaging (MRI) of the pelvis was performed without intravenous contrast. Sequences of the pelvis included axial and coronal T2- weighted SS FSE, coronal 2D FIESTA, axial and coronal T1-weighted LAVA, axial dual-echo T1-weighted FSPGR, axial diffusion-weighted SE, axial fluid sensitive FSE STIR COMPARISON: None. FINDINGS: Bladder is normal. Prostatomegaly measuring 4.6 x 4.6 x 4.6 cm. Several diverticula along the sigmoid colon without adjacent from trace stranding to suggest diverticulitis. Visualized portions of bowels are otherwise unremarkable including a normal retrocecal appendix. T2 hyperintense cysts are seen at the visualized lower poles of both kidneys the largest on the right measuring 1.5 cm. No free fluid in the pelvis. Small right hydrocele. Multiple tiny foci of susceptibility artifact in the subcutaneous tissues along the left anterior iliac spine on the midline of the lower abdomen and pelvis beginning at the umbilicus and in the right inguinal region likely related to prior surgery. Metallic magnetic field artifact at L4-L5 correspond to an interbody fusion device for anterior spinal fusion. Bone marrow signal is normal throughout. IMPRESSION: 1. Prostatomegaly. 2. Small right hydrocele. Reviewed, dictated and finalized at location A. RMATION SECURITY SPECIALIST
== END 2025-07-22 08:24 | disposition home or self-care (01) ==
LOC: MICIMG 08:25
PROVIDERS: PCP Internal Medicine; Visit Provider Internal Medicine
DX: R10.30 Lower abdominal pain, unspecified (principal); N43.3 Hydrocele, unspecified
CPT/HCPCS: 72195

== ENCOUNTER 2025-08-18 03:39 | Day surgery (SDC) | payer MEDICARE, SELFPAY ==
--- OUTSIDE RECORDS SUMMARY | 2005-10-29 19:00 | XMS_ITS | Continuity of Care Document ---
Author Organization [facility] Address [address] [place] [address] Phone Care Team Providers Care Abstracter Name Role Phone Unavailable Unavailable Unavailable Advance Directives Directive Yes / No Effective Date File Name No Information Encounters Encounter Description Practice Location Reason(s) For Visit Diagnoses Date Provider Providers Copied on Encounter [facility], [address], [place], [place], [address] , tel:[phone] [facility] OTH ADV EFF MED/BIO SUBSCIATICA 2200 6 No Information [facility], [address], [place], [place], [address] , tel:[phone] [facility] ACUTE BRONCHITIS 4-200 4 Alberta Feng. [address], [address] [facility], [place], [place], [address], . tel: [phone] [facility], [address], [place], [place], [address] , tel:[phone] [facility] GENERALIZED ANXIETY DIS 0 1-200 4 Alberta Feng[address], [address], [place], [place], [address], [place]. tel: [phone] [facility], [address], [place], [place], [address] , tel: [phone] [facility] ABDMNAL PAIN GENERALIZED 2 1-200 4 Alberta Feng. [address], [address], [place], [place], [address], . tel:[phone] [facility], [address], [place], [place], [address] , tel: [phone] [facility] ACUTE URI NOSALLERGIC RHINITIS NOSMALAISE AND FATIGUE NEC Fe- 6200 4 Alberta Feng. [facility] [address], [address], [place], [place], [address], . tel:[phone] [facility], [address], [place], [place], [address] , [place] tel:[phone] [facility] HYPOVOLEMIADIARR HEA 9200 3 Alberta Feng. [facility] [address], [address], [place], [place], [address], [place]. tel:[phone] [facility], [address], [place], [place], [address] , tel:[phone] [facility] LATERAL EPICONDYLITIS 1200 3 Alberta Feng. [facility] [address], [address], [place], [place], [address], [place]. tel:[phone] [facility], [address], [place], [place], [address] , [place] tel: [phone] [facility] ACUTE SINUSITIS NOS Nov-1 9-200 2 Alberta Feng. [address], [address], [place], [place], [address], [place]. tel:[phone] [facility], [address], [place], [place], [address] , [place] tel:[phone] [facility] VIRAL PNEUMONIA NOS Nov-1 3-200 2 Alberta Feng. [address], [address], [place], [place], [address], [place]. tel:[phone] [facility], [address], [place], [place], [address] , [place] tel: [phone] [facility] FEVER Aug-2 0-200 2 Alberta Feng. [address], [address], [place], [place], [address], . tel:[phone] [facility], [address], [place], [place], [address] , [place] tel: [phone] [facility] SCREEN LIPOID DISORDERSPROSTAT ITIS NOS 1-200 1 Alberta Feng. [facility] [address], [address], [place], [place], [address], [place]. tel:[phone] [facility], [address], [place], [place], [address] , [place] tel:[phone] [facility] BACKACHE NOS 1-200 0 Alberta Feng. [address], [address], [place], [place], [address], [place]. tel: [phone] [facility], [address], [place], [place], [address] , [place] tel:[phone] [facility] VIRAL ENTERITIS NOS 0-200 0 Alberta Feng. [facility] [address], [address], [place], [place], [address], [place]. tel: [phone] [facility], [address], [place], [place], [address] , [place] tel:[phone] [facility] DYSURIA 7-200 0 Alberta Feng. [facility] [address], [address], [place], [place], [address], [place]. tel: [phone] [facility], [address], [place], [place], [address] , [place] tel:[phone] [facility] DERMATITIS NECDERMATITIS NOS 3-200 0 Alberta Feng. [address], [address], [place], [place], [address], [place]. tel:[phone] [facility], [address], [place], [place], [address] , [place] tel: [phone] [facility] PREOP EXAM UNSPCF 1-199 9 Alberta Feng. [address], [address], [place], [place], [address], [place]. tel:[phone] [facility], [address], [place], [place], [address] , [place] tel: [phone] [facility] CARPAL TUNNEL SYNDROME 9-199 9 Alberta Feng. [address], [place], [place], [address], [place]. tel:[phone] Family History Family Member Type Diagnosis Age At Onset No Information Payers Payer name Insurance type Covered libertarian ID Authoriza tion(s) No Information Social History Type Description Quantity Date Captured Comments Sex Male Smoking Status No Information Chief Complaint And Reason For Visit No Information Reason For Referral Reason For Referral No Information History Of Present Illness Encounter Date Complaint History Of Prese nt Illness No Information Functional Status Date Functional Assessmen t No Information Instructions Date Instruction Additional Infor mation No Information Assessments Type Assessment Date No Information Patient Care Teams Name Effective Dates (start - stop) Status Members No Information
--- OUTSIDE RECORDS SUMMARY | 2006-10-07 10:51 | XMS_ITS | Continuity of Care Document ---
Author Organization [facility] Address [address] [place] [address] utive [facility] [address] [place] [address] Phone Care Team Providers Care Pari Mutuel Clerk Name Role Phone Samia Canales Unavailable Unavailable Procedures Procedure Date Incise Tear Duct Opening Advance Directives Directive Yes / No Effective Date File Name No Information Encounters Encounter Description Practice Location Reason(s) For Visit Diagnoses Date Provider Providers Copied on Encounter [facility], [address], [place], [place], [address], [place] tel:[phone] [facility] No Information 0-200 7 Ally Gracia. [address] , [address], [place], [address], [place]. tel:[phone] Referring Provider: Lety Calderón OD, [address] [facility], [place], [address]. tel:[phone] Family History Family Member Type Diagnosis Age [...]
--- OUTSIDE RECORDS SUMMARY | 2024-11-16 05:00 | XMS_ITS | Continuity of Care Document ---
Author Organization [facility] Address [address] [facility] [address] [place] [address] Phone Care Team Providers Care Grocery Shopper Name Role Phone Stevan Reed MD Unavailable Unavailable Allergies, Adverse Reactions, Alerts Substance Reaction Status Criticality codeine Active No Information Medications Medication Instructions Dosage Effective Dates (start - stop) Status Comments Flomax 0.4 mg capsule take 1 capsule by oral route every day 1/2 hour following the same meal each day 0.4 MG - Active metoprolol succinate ER 25 mg tablet,extended release 24 hr take 1 tablet by oral route every day 25 MG - Active XANAX (unknown strength) take 1 tablet by oral route 3 times every day Not Available - Active METHOCARBAMOL (unknown strength) take 1 tablet by oral route every 4 hours Not Available - No Longer Active tramadol 50 mg tablet - No Longer Active Procedures Procedure Date Triamcinolone acet inj NOS OFFICE/OUTPATIENT VISIT EST RADEX SPI LUMBOSAC 2/3 VIEWS Triamcinolone acet inj NOS OFFICE/OUTPATIENT VISIT EST Triamcinolone acet inj NOS OFFICE/OUTPATIENT VISIT EST Triamcinolone acet inj NOS OFFICE/OUTPATIENT VISIT EST RADEX SPI LUMBOSAC 2/3 VIEWS OFFICE/OUTPATIENT VISIT NEW OFFICE/OUTPATIENT VISIT EST RADEX SPI LUMBOSAC 2/3 VIEWS OFFICE/OUTPATIENT VISIT EST OFFICE/OUTPATIENT VISIT EST OFFICE/OUTPATIENT VISIT EST MU Reporting OFFICE/OUTPATIENT VISIT EST Advance Directives Directive Yes / No Effective Date File Name Other Directive No N/A N/A WARNING:The information contained in this section is historical and is provided for information only and does not constitute a legal document or any assurance that the information is still accurate. Please verify the information with the pa of the legal document before using it for clinical purposes. Encounters Encounter Description Practice Location Reason(s) For Visit Diagnoses Date Provider Providers Copied on Encounter OFFICE/OUTPA TIENT VISIT EST [facility], [address] [facility], [place], [address], [place] tel:[phone] [facility] Lumbar radiculopathyLumb ar foraminal stenosisArthrodes is status - 5 Derek Calles. [address] [facility], [place], [place], [id number] . tel: [phone] Referring Provider: Ameya Cano [address] [place] [address] [address], [place], [address]. tel:[phone] [facility], [address] [facility], [place], [address], [place] tel:[phone] [facility] Lumbar radiculopathy Nov-0 - 5 Derek Calles. [address] [facility], [place], [place], [id number] . tel:[phone] OFFICE/OUTPA TIENT VISIT EST [facility], [address] [facility] [address] [facility], [place], [address], [place] tel:[phone] [facility] Lumbar radiculopathyLumb ar foraminal stenosisDegenerat ion of lumbar intervertebral discArthrodesis status 3 Reed Stevan. [address] [facility], [place], [place], [id number] . tel:[phone] Referring Provider: Ameya Cano [address] [facility] [address], [place], [address]. tel:[phone] [facility], [address] [facility] [address], [address], [place] tel:[phone] [facility] Lumbar foraminal stenosis Dec- 3 Derek Calles. [address] [place], [place], [id number] . tel: [phone] OFFICE/OUTPA TIENT VISIT EST [facility], [address], [address], tel:[phone] [facility] LBP and left leg pain (chief complaint) Lumbar radiculopathyLumb ar foraminal stenosisDegenerat ion of lumbar intervertebral discArthrodesis status Mar-0 - 1 Derek Calles. [address] [place], [id number] . tel: [phone] [facility], [address], [address], tel:[phone] [facility] Lumbar foraminal stenosis Oct- 1 Derek Stevan. [address] [facility] [place], [place], [place], [id number] . tel: [phone] OFFICE/OUTPA TIENT VISIT EST [facility], [address], [address], tel:[phone] [facility] LBP and left leg pain (chief complaint) Lumbar radiculopathyArth rodesis statusLumbar foraminal stenosisDegenerat ion of lumbar intervertebral disc 0 Derek Calles. [address] [place], [address] . tel: [phone] OFFICE/OUTPA TIENT VISIT NEW [facility], [address], [address], [place] tel:[phone] [facility] LBP and left leg pain (chief complaint) Lumbar radiculopathyDege neration of lumbar intervertebral discLumbar foraminal stenosisArthrodes is status Oct- 0- 0 Derek Calles. [address] [place], [address] . tel: [phone] OFFICE/OUTPA TIENT VISIT EST [facility], [address], [address], tel:[phone] [facility] LBP and left leg pain (chief complaint) Body mass index (BMI) 24.0-24.9, adultLumbar radiculopathyDege neration of lumbar intervertebral discArthrodesis status 7 Derek Calles. [address] [place], [place], [id number] . tel: [phone] [facility], [address], [address], tel:[phone] [facility] Arthrodesis statusLumbar radiculopathy 7 Reed Stevan. [address] [place], [place], [address] . tel: [phone] OFFICE/OUTPA TIENT VISIT EST [facility], [address], [address], tel:[phone] [facility] LBP and left leg pain (chief complaint) Lumbar radiculopathyArth rodesis statusDegeneratio n of lumbar intervertebral disc 6 Derek Stevan. [address] [place], [place], [address] . tel: [phone] OFFICE/OUTPA TIENT VISIT EST [facility], [address], [address], tel:[phone] [facility] LBP and right leg pain (chief complaint) Radiculitis, Thoracic or LumbarDegeneratio n of lumbar or lumbosacral intervertebral discS/P lumbar fusion 5 Reed Stevan. [address] [place], [place], [address] . tel: [phone] OFFICE/OUTPA TIENT VISIT EST [facility], [address], [address], tel:[phone] [facility] Radiculitis, Thoracic or LumbarHistory of spinal fusion 2- 5 Derek Calles. [address] [address] [facility], [place], [place], [address] . tel:[phone] Referring Provider: Glenn Jane, [address], [place], [address]. tel:[phone] OFFICE/OUTPA TIENT VISIT EST [facility], [address] [address], [place], [address], [place] tel:[phone] [facility] LBP and right sciatica (chief complaint) Radiculitis, Thoracic or LumbarStatus post lumbar spinal fusionDegeneratio n of lumbar or lumbosacral intervertebral disc 3 Derek Calles. [address] [facility], [place], [place], [address] . tel:[phone] Referring Provider: Glenn Jane, [address], [place], [place], [facility]. tel:[phone] [facility], [address], [address], [place] tel:[phone] [facility] Radiculitis, Thoracic or Lumbar 3 Derek Calles. [address] [facility], [place], [place], [address] . tel:[phone] [facility], [address], [address], [place] tel:[phone] [facility] LBP and left sciatica (chief complaint) Degeneration of lumbar or lumbosacral intervertebral discRadiculitis, Thoracic or LumbarPostlaminec alfreda syndrome of lumbar region 2 Derek Monsalveok. [address] [place], [address] . tel:[phone] Referring Provider: Glenn Jane, [address], [place], [address]. tel:[phone] [facility], [address], [address], [place] tel:[phone] [facility] Degeneration of lumbar or lumbosacral intervertebral discRadiculitis, Thoracic or Lumbar 2 Derek Calles. [address], [place], [place], [address] . tel: [phone] Family History Family Member Type Diagnosis Age At Onset Mother Problem Thyroid disorder Mother Problem Cancer, kidney Mother Problem Congenital heart disease Mother Problem Hypertension Mother Problem Cancer, bladder Payers Payer name Insurance type Covered constitution party ID Sara san(s) [facility] Group Medicare Advantage [place] [id number] Social History Type Description Quantity Date Captured Comments Alcohol Use Details Unknown Caffeine Use Details Unknown Tobacco Use Status Never smoked tobacco 2024 Smoking Status Never smoker Non-Smoking Tobacco Use Details : No Details Available : No Details Available Sex Male Vital Signs Date / Time: Height Weight BMI Pulse Rate Blood Pressure Temperature Respiratory Rate Body Surface Area Head Circumference Head Circ. Percentile Wt./Jesus. Percentile BMI percentile Pulse Ox Inhaled Ox 9:33 AM 69.00 in 73.936 kg (163.00 lbs) 24.0 7 kg/m arabellaer (2) Chief Complaint And Reason For Visit No Information Reason For Referral Reason For Referral No Information Plan Of Treatment Date Type Action Status Goal Dietary management education , guidance, and counseling completed Referral Ordered: RADEX SPI LUMBOSAC 2/3 VIEWS spine, lumbar ordered Referral Ordered: INJ FORAMEN EPIDURAL L/S ordered Referral Ordered: RADEX SPI LUMBOSAC 2/3 VIEWS ordered Referral Ordered: INJ FORAMEN EPIDURAL L/S spine, lumbar Appointment date/timeframe: 03/24/2013 ordered History Of Present Illness Encounter Date Complaint History Of Prese nt Illness LBP and left leg pain LBP and left leg pain LBP and left leg pain LBP and left leg pain LBP and left leg pain LBP and right leg pain Functional Status Date Functional Assessmen t No Information Instructions Date Instruction Additional Infor mation Rest and Ice. Related to Lumba r radiculopathy Rest, ice and elevate. Related t o Lumbar radiculopathy Dietary management e ducation, guidance, and counseling Related to Body mass index (BMI) 24.0-24.9, adult Rest, ice and elevate. Related t o Lumbar radiculopathy Rest, ice Related to Radic ulitis, Thoracic or Lumbar Rest, ice Related to Radic ulitis, Thoracic or Lumbar Ice as instructed Assessments Type Assessment Date assessment Lumbar radiculopathy assessment Lumbar foraminal stenosis assessment Arthrodesis status Patient Care Teams Name Effective Dates (start - stop) Status Members No Information
--- OUTSIDE RECORDS SUMMARY | 2025-02-23 11:30 | XMS_ITS ---
Author Organization [facility] [employer] [place] ([address]) Address [address] [facility] [address] [place] [address] Care Team Providers Care High Climber Name Role Phone Ameya Burleson Primary Care Provider Opal Gaines Unavailable [phone] REASON FOR VISIT Chronic upper airway symptoms concerning for uncontrolled atopic disease Medications Medication SIG (Take, Route, Frequency, Duration) Notes Start Date End Date Status Nasal Washes N/A as directed intranasally Active Azelastine HCl 137 MCG/SPRAY 2 sprays in each nostril Nasally Twice a day; Duration: 30 days Active Tamsulosin HCl 0.4 MG 1 capsule Orally O nce a day Active Xanax 1 MG 1 tablet Orally Twic e a day Active Metoprolol Succinate Active Levocetirizine Dihydrochloride 5 MG 1 tablet in the evening Orally Once a day; Duration: 30 days Active Social History Sex Assigned At : Social History Observation Description Sex Assigned At Male Encounters Encounter Location Date Provider Diagnosis [facility] [address] [facility] [address] [place] [address] 02/23/2025 Opal Bowens Allergic rhinitis du e to pollen J30.1 ; Allergic rhinitis due to animal (cat) (dog) hair and dander J30.81 ; Other allergic rhinitis J30.89 and Other chronic allergic conjunctivitis H10.45 Assessments Encounter Date Diagnosis (ICD Code) Assessment Notes Treatment Notes Treatment Clinical Notes Section Notes 02/23/2025 Allergic rhinitis due to pollen (ICD-10 - J30.1) Given the history and symptoms, skin testing was performed to common aeroallergens to determine atopic status. Connor clearly suffers from atopic disease based upon our skin testing and clinical history. Accordingly, we have introduced a new, aggressive medication regimen, discussed nasal washes and allergy-specific avoidance measures. We also discussed adjunctive therapies including subcutaneous, specific allergen immunotherapy as relates to the treatment and prevention of atopic disease. He is currently considering the risks, benefits and alternatives to this care. Risks: bleeding, infection, allergic reaction, anaphylaxis; Benefits: reduced need for medications, improved symptoms, disease modification. Alternatives: watch/wait, change medication regimen, improve allergy avoidance measures. Follow-up in 1 month for interval evaluation and management 02/23/2025 Allergic rhinitis due to animal (cat) (dog) hair and dander (ICD-10 - J30.81) Follow allergen avoidance, meds and consider SCIT as an adjunctive treatment to current regimen 02/23/2025 Other allergic rhinitis (ICD-10 - J30.89) Follow allergen avoidance, meds and consider SCIT as an adjunctive treatment to current regimen 02/23/2025 Other chronic allergic conjunctivitis (ICD-10 - H10.45) Given ocular signs and symptoms I encouraged allergy avoidance measures and meds as above. If symptoms persist, consider adding additional medications including intraocular antihistamine/mas t cell stabilizer, PRN and consider SCIT as an adjunctive measure Plan Of Treatment Medication Medication Name Sig Start Date Stop Date Notes Nasal Washes N/A as directed intranasally Azelastine HCl 137 MCG/SPRAY 2 sprays in each nostril Nasally Twice a day; Duration: 30 days Levocetirizine Dihydrochlori de 5 MG 1 tablet in the evening Orally Once a day; Duration: 30 days Treatment Notes Assessment Notes Allergic rhinitis due to pollen Given th e history and symptoms, skin testing was performed to common aeroallergens to determine atopic status. Connor clearly suffers from atopic disease based upon our skin testing and clinical history. Accordingly, we have introduced a new, aggressive medication regimen, discussed nasal washes and allergy-specific avoidance measures. We also discussed adjunctive therapies including subcutaneous, specific allergen immunotherapy as relates to the treatment and prevention of atopic disease. He is currently considering the risks, benefits and alternatives to this care. Risks: bleeding, infection, allergic reaction, anaphylaxis; Benefits: reduced need for medications, improved symptoms, disease modification. Alternatives: watch/wait, change medication regimen, improve allergy avoidance measures. Follow-up in 1 month for interval evaluation and management Allergic rhinitis due to ani mal (cat) (dog) hair and dander Follow allergen avoidance, meds and consider SCIT as an adjunctive treatment to current regimen Other allergic rhinitis Follow allergen avoidance, meds and consider SCIT as an adjunctive treatment to current regimen Other chronic allergic conjunctivitis Gi deyanira ocular signs and symptoms I encouraged allergy avoidance measures and meds as above. If symptoms persist, consider adding additional medications including intraocular antihistamine/mast cell stabilizer, PRN and consider SCIT as an adjunctive measure Next Appt Details Follow Up: 4 Weeks, Reason: Evaluation and Management Progress Notes * Connor JEREZDOB:1955 (69 yo M)Acc No.[id number]:02/23/2025 Progress Notes Patient: Connor CORTEZ Provider: Olivier Bowens MD :1955 A ge:69 Y S ex:Male Date:02/23/2025 Address:[address] [place], [place] [id number] Pcp:Ameya Burleson Subjective: * Chief Complaints: * 1 . Chronic upper airway symptoms concerning for uncontrolled atopic disease. * HPI: * Introduction: HPI: Jacquelyn Jerez is a 69-year-old male with PVC and dysthymic disorder presenting for evaluation of allergic rhinitis. He is alone for today's visit. H e presents with worsening seasonal allergies, particularly due to ragweed and lawler honeysuckle exposure. He reports significant sneezing, hacking, and mucus production, along with itching, burning, and watering eyes. These symptoms are exacerbated by outdoor activities such as mowing and yard work. He has a history of sinus infections, with the last occurrence in March 2024. No decrease in sense of smell. Connor describes post-nasal drip and thick mucus along with ear fullness. He has tried various nasal sprays and decongestants but avoids them due to a past heart ablation. He most recently used Flonase Sensimist. He denies asthma, wheezing, or shortness of breath and has no pets or significant mold exposure in his home. He is concerned about his crawl space having mold present. Connor is retired and spends much time outdoors, which may contribute to his symptoms. S kin testing was performed over 40 years ago. He has never received immunotherapy. H e denies a history of physician-diagnosed recurrent sinusitis or otitis media, recurrent pneumonia, asthma/RAD, eczema, food allergies, urticaria/angioedema, medication allergies, contact dermatitis, latex allergy, eosinophilic esophagitis or stinging insect hypersensitivity. E NT/respiratory: Denies : shortness of breath. Denies : wheezing. * ROS: A LLERGY: Positive p er the HPI and history, otherwise unremarkable.? S PECIAL SENSES: Positve for n one. C ONSTITUTIONAL: Positive for n one. E NT: Positive p er the HPI and history, otherwise unremarkable.? R ESPIRATORY: Positive p er the HPI and history, otherwise unremakable.? O PHTHALMOLOGY: Positive for p er the HPI and history, otherwise unremarkable. A dmits i tching. E NDOCRINOLOGY: Positive for n one. C ARDIOLOGY: Positive for n one. D enies s hortness of breath.? G ASTROENTEROLOGY: Positive for n one. U ROLOGY: Positive for n one. D ERMATOLOGY: Positive for p er the HPI and history, otherwise unremakable. N EUROLOGY: Positive for n one. H EMATOLOGY/LYMPH: Positive for n one. M USCULOSKELETAL: Positive for n one. P SYCHOLOGY: Positive for n one. A ll other review of systems per the HPI and history, otherwise unremarkable. * Medical History: * Medications: T aking Metoprolol Succinate , Taking Xanax 1 MG Tablet 1 tablet Orally Twice a day , Taking Tamsulosin HCl 0.4 MG Capsule 1 capsule Orally Once a day , Taking Levocetirizine Dihydrochloride 5 MG Tablet 1 tablet in the evening Orally Once a day , Taking Azelastine HCl 137 MCG/SPRAY Solution 2 sprays in each nostril Nasally Twice a day , Taking Nasal Washes N/A 1 quart of sterilized tap water or distilled water, 1 tsp NaCl, 1 pinch of baking soda as directed intranasally Objective: * Vitals: * Examination: G eneral examination: General appearance: p leasant, well-developed, well-nourished. HEENT: conjunctiva are clear bilaterally, no tenderness to palpation of the sinuses, TM's without evidence of acute infection, turbinates 2+ swollen and pale inferiorly bilaterally, clear rhinorrhea is present, no polyps noted, no septal perforation, posterior oropharynx is clear, no exudates, no tongue swelling, and uvula is midline. Oral cavity: n ormal, no lesions. Neck, thyroid : s upple, non-tender, no anterior cervical lymphadenopathy. Breasts : n ot performed. Heart: R RR, S1-S2, no murmurs, no rubs, no gallops. Lungs: c lear to auscultation and percussion in all lung mojica, no wheezes or crackles. Neurologic exam: u nremarkable. Skin: n ormal, no rash, dermatographism, urticaria, angioedema. Peripheral pulses: n ormal (2+) bilaterally. Back: n ormal. Extremities: n ormal ROM, no clubbing, no cyanosis, no edema. Genitalia: n ot performed. Assessment: * Assessment: 1. A llergic rhinitis due to pollen - J30.1 (Primary) 2 . A llergic rhinitis due to animal (cat) (dog) hair and dander - J30.81 3 . O ther allergic rhinitis - J30.89 4 . O ther chronic allergic conjunctivitis - H10.45 Plan: * Treatment: 2. A llergic rhinitis due to animal (cat) (dog) hair and dander Notes: Follow allergen avoidance, meds and consider SCIT as an adjunctive treatment to current regimen 3. O ther allergic rhinitis Notes: Follow allergen avoidance, meds and consider SCIT as an adjunctive treatment to current regimen 4. O ther chronic allergic conjunctivitis Notes: Given ocular signs and symptoms I encouraged allergy avoidance measures and meds as above. If symptoms persist, consider adding additional medications including intraocular antihistamine/mast cell stabilizer, PRN and consider SCIT as an adjunctive measure * Procedure Codes: 9 5004 PRICK TESTS, Units: 72.00 , 29116 INTRADERMAL TESTS, Units: 16.00 , 02811 PT-FOCUSED HLTH RISK ASSMT, G8427 DOC MEDS VERIFIED W/PT OR RE * Preventive Medicine: Counseling: M edication instruction: W atch for side effects of prescribed medications, Nasal steroid/antihistamine instruction: avoid septum. E ducation: G ENERAL EDUCATION: Our staff spent an additional 30 minutes in direct contact with the patient educating them on their current diagnoses and proper treatment and prevention of symptoms and the proper use of medications. E ducation 2: A RC EDUCATION: Our staff discussed the appropriate allergen avoidance measures and medication utilization including upper airway hygiene with daily nasal washes given the patient's clinical status and diagnoses. SCIT EDUCATION: Discussed allergy immunotherapy including the relative risks, benefits and alternatives to this treatment as an adjunctive measure to current therapy, Allergy Immunotherapy: Risks: bleeding, infection, allergic reaction, anaphylaxis = severe allergic reaction that can cause ; Benefits: reduced need for medications, improved symptoms, disease modification. Alternatives: watch/wait, change medication regimen, improve allergy avoidance measures, Our staff discussed the warning signs of anaphylaxis and the indications to use self-injectable epinephrine and seek urgent or emergent care. P atient education material sent to portal? Y es * Follow Up: 4 Weeks (Reason: Evaluation and Management) * Billing Information: * Visit Code: 99456 Office Visit, New Pt., Level 3. Modifiers: 25 * Procedure Codes: 54165 PRICK TESTS. Units: 72.00. 56414 INTRADERMAL TESTS. Units: 16.00. 91960 PT-FOCUSED HLTH RISK ASSMT. G8427 DOC MEDS VERIFIED W/PT OR RE. * Electronic signature of Judy Bowens MD on 08/18/2025 at 03:42 AM WORKFORCE MANAGEMENT COORDINATOR Sign off status: Pending * Provider: Olivier Bowens MD Date: 0 02/23/2025 Generated for Arpit thurman/Kim/Sherwinitting on: 1 10/19/2024 03:42 AM WORKFORCE MANAGEMENT COORDINATOR History and Physical Notes * HPI (History of Present Illness) Category Sub-Category Detail Notes Category Not es ENT/respiratory shortness of breath wheezing *Introduction HPI: Connor Jerez is a 69-year-old male with PVC and dysthymic disorder presenting for evaluation of allergic rhinitis. He is alone for today's visit. He presents with worsening seasonal allergies, particularly due to ragweed and lawler honeysuckle exposure. He reports significant sneezing, hacking, and mucus production, along with itching, burning, and watering eyes. These symptoms are exacerbated by outdoor activities such as mowing and yard work. He has a history of sinus infections, with the last occurrence in March 2024. No decrease in sense of smell. Connor describes post-nasal drip and thick mucus along with ear fullness. He has tried various nasal sprays and decongestants but avoids them due to a past heart ablation. He most recently used Flonase Sensimist. He denies asthma, wheezing, or shortness of breath and has no pets or significant mold exposure in his home. He is concerned about his crawl space having mold present. Connor is retired and spends much time outdoors, which may contribute to his symptoms. Skin testing was performed over 40 years ago. He has never received immunotherapy. He denies a history of physician-diagnosed recurrent sinusitis or otitis media, recurrent pneumonia, asthma/RAD, eczema, food allergies, urticaria/angioedema, medication allergies, contact dermatitis, latex allergy, eosinophilic esophagitis or stinging insect hypersensitivity Examination Category Sub-Category Detail Notes Category Not es General examination HEENT: conjunctiva are clear bilaterally, no tenderness to palpation of the sinuses, TM's without evidence of acute infection, turbinates 2+ swollen and pale inferiorly bilaterally, clear rhinorrhea is present, no polyps noted, no septal perforation, posterior oropharynx is clear, no exudates, no tongue swelling, and uvula is midline Neck, thyroid : supple, non-tender, no anterior cervical lymphadenopathy Heart: RRR, S1-S2, no murmu rs, no rubs, no gallops Lungs: clear to auscultatio n and percussion in all lung mojica, no wheezes or crackles Abdomen: Extremities: normal ROM, no clubb ing, no cyanosis, no edema General appearance: pleasant, well-devel oped, well-nourished Skin: normal, no rash, belen matographism, urticaria, angioedema Neurologic exam: unremarkable Oral cavity: normal, no lesions Breasts : not performed Peripheral pulses: normal (2+) bilatera lly Back: normal Genitalia: not performed
--- OUTSIDE RECORDS SUMMARY | 2025-02-23 12:30 | XMS_ITS ---
Author Organization [facility] [employer] [place] ([address]) Address [address] [facility] [address] [place] [address] Care Team Providers Care Molder Hand Name Role Phone Ameya Burleson Primary Care Provider Opal Gaines Unavailable [phone] REASON FOR VISIT Chronic upper airway symptoms [...] Male Encounters Encounter Location Date Provider Diagnosis [facility] [address] [facility] [address] [place] [address] 02/23/2025 Opal Bowens Allergic rhinitis du e [...] Notes * Connor JEREZDOB:1955 (69 yo M)Acc No.[id number]:02/23/2025 Progress Notes Patient: Connor CORTEZ Provider: Olivier Bowens MD :1955 A ge:69 Y S ex:Male Date:02/23/2025 Address:[address] [place], [place] [id number] Pcp:Ameya Burleson Subjective: * Chief Complaints: * [...] 9 5004 PRICK TESTS, Units: 72.00 , 93435 INTRADERMAL TESTS, Units: 16.00 , 75047 PT-FOCUSED HLTH RISK ASSMT, G8427 DOC MEDS [...] Management) * Billing Information: * Visit Code: 26952 Office Visit, New Pt., Level 3. Modifiers: 25 * Procedure Codes: 01198 PRICK TESTS. Units: 72.00. 93591 INTRADERMAL TESTS. Units: 16.00. 82314 PT-FOCUSED HLTH RISK ASSMT. G8427 DOC MEDS VERIFIED W/PT OR RE. * Electronic signature of Judy Bowens MD on 06/22/2025 at 02:59 AM CDT Sign off status: Pending * Provider: Olivier Bowens MD Date: 0 02/23/2025 Generated for Arpit thurman/Kim/Kirsty on: 1 02:59 AM CDT History and Physical Notes * HPI (History of Present Illness) Category Sub-Category Detail Notes Category Not es ENT/respiratory shortness of breath wheezing *Introduction HPI: Connor Jerez is a 69-year-old male with PVC and dysthymic disorder presenting for evaluation of allergic rhinitis. He is alone for today's visit. He presents with worsening seasonal allergies, particularly due to ragweed and lawlre honeysuckle exposure. He reports significant sneezing, hacking, [...]
[2025-06-14 14:20] VITALS: BMI 21.4
--- OUTSIDE RECORDS SUMMARY | 2025-06-22 02:58 | XMS_ITS | Encounter Summary ---
Author Organization [facility] Address [address] [place] [address] Phone Care Team Providers Care Metal Tank Builder Name Role Phone Ameya Burleson DO Primary Care Provider [phone] Josse Mcfadden MD Primary Care Provider [phone] Ameya Burleson DO Primary Care Provider [phone] Encounter Details Date Type Department Care Team (Late st Contact Info) Description 01/27/2020 Documentation [facility] Medicine Physical Therapy [address] [facility] 1st Floor [address] [place] [address] Debbie Marrero, PT [address] [facility] [address] [place] [address] Social History Tobacco Use Types [...] on file 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
--- OUTSIDE RECORDS SUMMARY | 2025-06-22 02:58 | XMS_ITS | Encounter Summary ---
Author Organization [facility] Address [address] [place] [address] Care Team Providers Care Bearing Grinder Name Role Phone Ameya Burleson DO Primary Care Provider [phone] Josse Mcfadden MD Primary Care Provider [phone] Ameya Burleson DO Primary Care Provider [phone] Reason for Visit * Reason Onset Date Comments Imaging 01/19/2020 Encounter Details Date Type Department Care Team (Late st Contact Info) Description 01/19/2020 Telephone [facility] [address] [facility] Advanced Medicine [address] [place] [address] Ryan Ramirez MD [address] [place] [address] Imaging Social History Tobacco Use Types Packs/Day [...] on file 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
--- OUTSIDE RECORDS SUMMARY | 2025-06-22 02:58 | XMS_ITS | Clinical Summary ---
Author Organization [facility] Address [address] [place] [address] Care Team Providers Care Waiver Analyst Name Role Phone Ameya Burleson DO Primary Care Provider [phone] Source Comments [facility],non-owned Affiliates and Associated Physician Practices is amultiple site organization consisting of ambulatory clinics and hospital sitesin [place], [place], [place] and [place]. This disclosure is being madepursuant to the Care Everywhere program and may not contain all information available regarding this patient. 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 Sofía Peralta. These tests need not be, and therefore are not, approved by the [place] Food and Drug Administration. The tests are used for clinical purposes. Billing Codes Specimen Charges Stain Charges 80944 1 12:30 PM CDT DERMATOPATHOLOGY LABORATORY Embedded Images 12:30 PM CDT DERMATOPATHOLOGY LABORATORY Pathology/Cytolo gy TISSUE SPECIMEN FROM SKIN / Unknown 05/05/2025 10:00 AM CDT 05/06/2025 8:25 AM CDT us Shweta Smiley DO LAB - PATHOLOGY/CYTOLOGY ORDERABLES Final Result DERMATOPATHOLOGY LABORATORY [facility] - Department of Dermatology [facility] Medicine [address] [place] [address], [address] [phone] from Last 3 Months Insurance [facility] MANAGED MEDICARE ADV [facility] MANAGED MEDICARE ADV Care Teams Waiver Analyst Relationship Specialty Start Date End Date Ameya Burleson DO [address] [place] [address] PCP - General 09/28/18
--- OUTSIDE RECORDS SUMMARY | 2025-06-22 02:58 | XMS_ITS | Clinical Summary ---
Author Organization [facility] Address [address] [place] [address] Care Team Providers Care Family Service Worker Name Role Phone Ameya Burleson DO Primary Care Provider [phone] Allergies Active Allergy Reactions Criticality Noted Date [...] needed for anxiety. 30 tablet 8 Active hydrocortisone 2.5 % creamIndications: Skin Inflammation 1 [...] 03/25/2018 Adjustment disorder with depressed mood 01/20/20 18 Annular tear of intervertebral disc 02/11/2017 Annular [...] Encounters Date Type Department Care Team Description 06/14/2025 8:23 AM CDT - 06/14/2025 11:59 PM CDT Hospital Encounter [facility] [address] [place] [address] Right lower quadrant pain; Abnormal weight loss Discharge Disposition: Discharge to home or self care 06/13/2025 7:40 AM CDT Ancillary Procedure [facility] Outside Films 05/18/2025 9:45 AM CDT Office Visit [facility] Cardiology [address] [place] [address] Avni Hamilton MD PVC (premature ventricular contraction) (Primary Dx); Status post radiofrequency ablation for arrhythmia; History of palpitations; Anxiety from Last 3 Months Immunizations Immunization Administration Dates Next Due Influenza, Quadrivalent, Spl it, Preservative Free, Intramuscular 06/02/2018 Surgical History Surgery Date Site/Laterality Comments CERVICAL FUSION Cervical Vertebral Fusion - (Added by TW Conv) ROTATOR CUFF REPAIR Rotator Cuff Repair - (Added by TW Conv) [place] UNLISTED PROCEDURE ABDOME N PERITONEUM & OMENTUM Hernia Repair - (Added by TW Conv) [place] EXCISION 1ST &/CERVICAL RIB Thorax Excision Of [...] on file 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 Gender Identity Not on file Sexual Orientation Not on file Obstetrics History Last Filed Vital Signs Vital Sign Reading Time Taken Comments Blood Pressure 118/62 05/18/2025 9:41 AM CDT Pulse 82 05/18/2025 9:41 AM CDT Temperature 36.7 C (98.1 F) 01/30/2024 8:45 AM CDT Respiratory Rate 18 01/30/2024 8:45 AM CDT Oxygen Saturation 98% 05/18/2025 9:41 AM CDT Inhaled Oxygen Concentration - - Weight 67.6 kg (149 lb) 05/18/2025 9:41 AM CDT Height 175.3 cm (5' 9) 05/18/2025 9:41 AM CDT Body Mass Index 22 05/18/2025 9:41 AM CDT Plan of Treatment Health Maintenance Due Date Last Done Comments Colon Cancer Screening-Colonoscopy 1955 Depression Screening 1957 Hepatitis C Screening 1957 Prostate Cancer Screening-PSA 1957 DTaP/Tdap/Td Vaccine (1 - Tdap) 1968 Hepatitis B Screening 12/28/1975 Pneumococcal vaccine 65+ (1 of 1 - PCV) 12/28/2007 Zoster Vaccine (1 of 2) 12/28/2007 Well Visit 65+ 2022 Fall Risk Assessment 01/29/2025 01/30/2024 Covid-19 Vaccine (3 - 2024-2 6 season) 2025 05/02/2021, 04/11/2021 Influenza Vaccine (#1) 2025 1, 06/05/2020, 06/03/2019, Additional history exists Goals Goal [...] as needed Medical Devices Implanted Type Area Baling Press Operator Device Identifier Shelf Expiration Date Model / Serial / Lot [employer] Vascade Mvp 6-12fr Venous Closure [id number] - [id number] - [id number] Implanted:Qty: 1 on 01/29/2024 by Timothy Sabillon MD at [facility] Collagen Right: Femoral [employer] 06/30/2025 [id number] 10U / [id number] 30C / [id number] 30C [employer] Vascade Mvp 6-12fr Venous Closure [id number] - [id number] - [id number] Implanted:Qty: 1 on 01/29/2024 by Timothy Sabillon MD at [facility] Collagen Left: Femoral [employer] 06/30/2025 [id number] 10U / [id number] 30C / [id number] 30C [employer] Device Vascular Closure Femoral Artery Bioabsorbable Dual Method Vascade 6-7fr Collagen [id number] - [id number] - [id number] Implanted:Qty: 1 on 01/29/2024 by Timothy Sabillon MD at [facility] Collagen Left: Femoral [employer] 10/27/2025 [id number] 05U / [id number] 26A / [id number] 26A [employer] Device Closure Vascade Od5 Fr Femoral Artery [id number] - [id number] - [id number] Implanted:Qty: 1 on 01/29/2024 by Timothy Sabillon MD at [facility] Collagen Right: Femoral [employer] 10/07/2025 [id number] -05U / [id number] 131A / [id number] 131A Lumbar Spine Fusion Instrumentation, Cage Spine Lumbar Cervical Spine Fusion Instrumentation, Cage Implanted:1988 (Quantity not on file) Lumbar-Sac ral Spine Explanted Type Area Baling Press Operator Device Identifier Shelf Expiration Date Model / Serial / Lot [employer] Neuro- [id number]-[id number] Precision Infinion 50cm 1x16 Splitter Trial Lead Kit - [id number] Implanted:Qty: 1 on 08/18/2019 by Ryan Ramirez MD at [facility] Medicine Explanted:2018 by Ryan Ramirez MD (Quantity not on file) [employer] Neuro- SC-[id number] / / Description:Per Progress Not e from Dr. Ramirez, 08/24/2019: SCS leads removed, tip and intact. [employer] Neuro- [id number]-[id number] Precision Infinion 50cm 1x16 Splitter Trial Lead Kit - [id number] Implanted:Qty: 1 on 08/18/2019 by Ryan Ramirez MD at [facility] Medicine Explanted:2018 by Ryan Ramirez MD (Quantity not on file) [employer] Neuro- SC-[id number] / / Description:Per Progress Not e from Dr. Ramirez, 08/24/2019: SCS leads removed, tip and intact. [email or web address] Jb [id number] Precision Spectra 213cm 1x16 Splitter Extension Cable - [id number] Implanted:Qty: 1 on 08/18/2019 by Ryan Ramirez MD at [facility] Explanted:2018 by Ryan Ramirez MD (Quantity not on file) [employer] Jb [id number] / / Description:Per Progress Not e from Dr. Ramirez, 08/24/2019: SCS leads removed, tip and intact. Procedures Procedure Name Priority Date/Time Associated Diagnosis Comments MRI ABDOMEN W WO CONTRAST Schedule Routine, Read Routine (OP Routine) 06/14/2025 9:25 AM CDT Right lower quadrant pain Abnormal weight loss CT BODY OUTSIDE REFERENCE Routine 06/13/2025 7:38 AM CDT from Last 3 Months Results * MRI Abdomen W WO Contrast (06/14/2025 9:25 AM CDT) Anatomical Region Laterality Modality Body N/A Magnetic Resonan ce 06/15/2025 9:42 AM CDT Narrative 06/15/2025 10:12 AM CDT EXAM DESCRIPTION: MRI ABDOMEN W WO CONTRAST REASON FOR STUDY: right lower quadrant pain Patient had COVID in March and has experienced GI issues, weight loss, and RLQ pain since. TECHNIQUE: MRI of the abdomen performed without and with intravenous contrast. All images stored on PACS. CONTRAST TYPE/DOSE: 14mL of GADOTERATE MEGLUMINE 0.5 MMOL/ML INTRAVENOUS SOLUTION (SO) injected via intravenous COMPARISON: CT abdomen and pelvis 03/30/2025 FINDINGS: LOWER CHEST: No effusion. LIVER: Normal size and contour. No focal liver lesion. No evidence of steatosis. GALLBLADDER: No stones, wall thickening or pericholecystic fluid BILE DUCTS: No intrahepatic or extrahepatic ductal dilatation. SPLEEN: Normal size. No focal lesions. PANCREAS: No masses. No adjacent inflammation or peripancreatic fluid collections. Pancreatic duct not dilated ADRENALS: Normal. KIDNEYS/URINARY TRACT: Several bilateral simple and minimally complex thinly septated cysts. There is an exophytic left renal upper pole cyst containing a thin internal septation measuring 6.3 x 5.7 cm. No suspicious renal mass. No hydronephrosis. GI: Sigmoid diverticulosis. The appendix is unremarkable. No bowel dilation or significant wall thickening. No masses identified. PERITONEUM: No ascites. RETROPERITONEUM: No mass or adenopathy. VASCULATURE: No abdominal aortic aneurysm. MUSCULOSKELETAL: No acute findings. OTHER: No other abnormality. IMPRESSION: No findings to explain the patient's symptoms. THIS IS AN ELECTRONICALLY VERIFIED FINAL REPORT 06/15/2025 10:12 AM - Electronically signed by Glenn Tubbs M.D. KR: JOSE RAMON Report ID: [id number] Reading Location: [id number] Procedure Note Glenn Tubbs MD - 06/15/2025 EXAM DESCRIPTION: MRI ABDOMEN W WO CONTRAST REASON FOR STUDY: right lower quadrant pain Patient had COVID in March and has experienced GI issues, weight loss, andRLQ pain since. TECHNIQUE: MRI of the abdomen performed without and with intravenous contrast. All images stored on PACS. CONTRAST TYPE/DOSE: 14mL of GADOTERATE MEGLUMINE 0.5 MMOL/ML INTRAVENOUS SOLUTION (SO) injected via intravenous COMPARISON: CT abdomen and pelvis 03/30/2025 FINDINGS: LOWER CHEST: No effusion. LIVER: Normal size and contour. No focal liver lesion. No evidence of steatosis. GALLBLADDER: No stones, wall thickening or pericholecystic fluid BILE DUCTS: No intrahepatic or extrahepatic ductal dilatation. SPLEEN: Normal size. No focal lesions. PANCREAS: No masses. No adjacent inflammation or peripancreatic fluid collections. Pancreatic duct not dilated ADRENALS: Normal. KIDNEYS/URINARY TRACT: Several bilateral simple and minimally complexthinly septated cysts. There is an exophytic left renal upper pole cystcontaining a thin internal septation measuring 6.3 x 5.7 cm. No suspicious renal mass.No hydronephrosis. GI: Sigmoid diverticulosis. The appendix is unremarkable. No bowel dilation or significant wall thickening. No masses identified. PERITONEUM: No ascites. RETROPERITONEUM: No mass or adenopathy. VASCULATURE: No abdominal aortic aneurysm. MUSCULOSKELETAL: No acute findings. OTHER: No other abnormality. IMPRESSION: No findings to explain the patient's symptoms. THIS IS AN ELECTRONICALLY VERIFIED FINAL REPORT 06/15/2025 10:12 AM - Electronically signed by Glenn Tubbs M.D. KR: JOSE RAMON Report ID: [id number] Reading Location: [id number] Julisa Luna NP IMGely MRI PROCEDURES Final R esult * CT Body Outside Reference (06/13/2025 7:38 AM CDT) Narrative [facility] - 06/13/2025 7:38 AM CDT This order has been auto-finalized and does not contain a result. us Not In File Miscellaneous IMG CT PROCEDURES Alejandra l Result [facility] from Last 3 Months Insurance [facility] MEDICARE [facility] MEDIC[facility] Address: [address] [address] [place] [address] [employer] [facility] MEDICARE [facility] MEDICARE Address: [address] [address] [place] [address] [facility] MEDICARE [facility] MEDIC[facility] Address: [facility] [address] [place] [address] Advance Directives For more information, please contact: [phone] * Full Code (Latest Code Status on File) Date Activated Date Inactivated Comments 01/29/2024 7:17 PM 01/30/2024 1:41 PM Care Teams Family Service Worker Relationship Specialty Start Date End Date Ameya Burleson DO PCP - General Internal Medicine 05/12/24
--- OUTSIDE RECORDS SUMMARY | 2025-06-22 02:58 | XMS_ITS | Encounter Summary ---
Author Organization [facility] Address [address] [place] [address] Care Team Providers Care Steward/Stewardess Chief Cargo Vessel Name Role Phone Ameya Burleson Primary Care Provider Encounter Details Date Type Department Care Team (Late st Contact Info) Description 05/05/2025 Lab Requisition 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 - Received: 05/06/2025 [...] characteristic determined by the Dermatopathology Laboratory at [facility], directed by Dr. Sofía Peralta. These tests need not be, and therefore are not, approved by the [place] Food and Drug Administration. The tests are used for clinical purposes. Billing Codes Specimen Charges Stain Charges 67070 1 12:30 PM CDT DERMATOPATHOLOGY LABORATORY Embedded Images 12:30 PM CDT DERMATOPATHOLOGY LABORATORY Pathology/Cytolo gy TISSUE SPECIMEN FROM SKIN / Unknown 05/05/2025 10:00 AM CDT 05/06/2025 8:25 AM CDT us Shweta Smiley DO LAB - PATHOLOGY/CYTOLOGY ORDERABLES Final Result DERMATOPATHOLOGY LABORATORY [facility] - Department of Dermatology [address], [address] [phone] documented in this encounter Visit Diagnoses Not on filedocumented in this encounter Care Teams Steward/Stewardess Chief Cargo Vessel Relationship Specialty Start Date End Date Ameya Burleson DO [address] [facility] [address] [place] [address] PCP - General 09/28/18 documented as of this encounter
--- OUTSIDE RECORDS SUMMARY | 2025-06-22 02:58 | XMS_ITS | Encounter Summary ---
Author Organization [facility] Healthcare Address [address] [place] [address] Care Team Providers Care Cytogeneticist Name Role Phone Ameya Burleson DO Primary Care Provider [phone] Josse Mcfadden MD Primary Care Provider [phone] Ameya Burleson DO Primary Care Provider [phone] Reason for Visit * Reason Onset Date Comments Prior Auth 01/09/2020 Cyclobenzaprine 5mg Encounter Details Date Type Department Care Team (Late st Contact Info) Description 01/09/2020 Telephone [facility] at the [place] [facility] [address] [facility] [address] [facility] [address] [place] [address] Ryan Ramirez MD [address] [place] [address] Prior Auth (Cyclobenzaprine 5mg) Social History Tobacco [...] on file 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
--- OUTSIDE RECORDS SUMMARY | 2025-06-22 02:58 | XMS_ITS | Encounter Summary ---
Author Organization [facility] Healthcare Address [address] [place] [address] Care Team Providers Care Gaming Cage Cashier Name Role Phone Ameya Burleson DO Primary Care Provider [phone] Debbie Marrero PT Unavailable [phone] Josse Mcfadden MD Primary Care Provider [phone] Ameya Burleson DO Primary Care Provider [phone] Reason for Visit * Reason Onset Date Comments cancel appt 05/04/2019 Encounter Details Date Type Department Care Team (Late st Contact Info) Description 05/04/2019 Telephone [facility] at the [place] [facility] [address] [facility] Advanced Medicine [address] [place] [address] Ryan Ramirez MD [address] [place] [address] cancel appt Social History Tobacco Use Types [...] on file 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
--- OUTSIDE RECORDS SUMMARY | 2025-06-22 02:58 | XMS_ITS | Encounter Summary ---
Author Organization [facility] Healthcare Address [address] [place] [address] Care Team Providers Care Altitude Chamber Technician Name Role Phone Ameya Burleson DO Primary Care Provider [phone] Valentine Carvajal DPT Unavailable [phone] Debbie Marrero PT Unavailable [phone] Josse Mcfadden MD Primary Care Provider [phone] Ameya Burleson DO Primary Care Provider [phone] Encounter Details Date Type Department Care Team (Late st Contact Info) Description 01/21/2019 Telephone [facility] Pain Center at the [place] [facility] [address] 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
--- OUTSIDE RECORDS SUMMARY | 2025-06-22 02:58 | XMS_ITS | Encounter Summary ---
Author Organization [facility] Healthcare Address [address] [place] [address] Care Team Providers Care Good Humor Vendor Name Role Phone Ameya Burleson DO Primary Care Provider [phone] Josse Mcfadedn MD Primary Care Provider [phone] Ameya Burleson DO Primary Care Provider [phone] Reason for Visit * Reason Onset Date Comments Prior Auth 11/23/2019 Methocarbamol 50 0mg Encounter Details Date Type Department Care Team (Late st Contact Info) Description 11/23/2019 Telephone [facility] Pain Center at the [place] [facility] [address] [facility] [address] [place] [address] Ryan Ramirez MD [address] [place] [address] Prior Auth (Methocarbamol 500mg) Social History Tobacco [...] on file 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
--- OUTSIDE RECORDS SUMMARY | 2025-06-22 02:59 | XMS_ITS | Patient Health Record ---
Author Organization [facility] [facility] Address [address] [facility] [address] [place] [address] Care Team Providers Care Hoop Machine Operator Name Role Phone Jaime HANNAH, Jayesh Primary Care Provider Faye Elizabeth Unavailable [phone] Reason For Referral No Information Medications Medication [...] Encounter Location Date Provider Diagnosis [email or web address] [address] [facility] [address] [facility] [address] [place] [address] 03/18/2025 Faye Covington Plan Of Treatment No Information Insurance Providers Payer Name Payer Address Payer Phone Subscriber Number Group Number Insured Name Patient Relationship to Insured Coverage Start Date Coverage End Date [employer] Medicare Replacement/ Advantage - Ppo [address] [address] [place] [address] [id number] JANE JEREZ Self - patient is the insured
--- OUTSIDE RECORDS SUMMARY | 2025-06-22 02:59 | XMS_ITS | Encounter Summary ---
Author Organization [facility] Healthcare Address [address] [place] [address] Care Team Providers Care Customer Sales Representative Name Role Phone Ameya Burleson DO Primary Care Provider [phone] Valentine Carvajal DPT Unavailable [phone] Debbie Marrero PT Unavailable [phone] Josse Mcfadden MD Primary Care Provider [phone] Ameya Burleson DO Primary Care Provider [phone] Reason for Visit * Reason Onset Date Comments Scheduling Appointments 04/14/2019 Encounter Details Date Type Department Care Team (Late st Contact Info) Description 04/14/2019 Telephone [facility] [address] [address] Ryan Ramirez MD [address] [place] [address] Scheduling Appointments Social History Tobacco Use Types [...] file 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
--- OUTSIDE RECORDS SUMMARY | 2025-06-22 03:00 | XMS_ITS | Clinical Summary ---
Author Organization [facility] Address [address] [facility] [address] [place] [address] Phone Care Team Providers Care Scientist Electronics Name Role Phone Ameya Bruleson Primary Care Provider [phone] Allergies Active Allergy Reactions Criticality Noted Date [...] 12/28/2007 Zoster Immunization (1 of 2) 12/28/2007 Medicare Initial AWV [id number] 09/08/2020 Influenza Immunization (#1) 2025 09/2 02/2019, 06/01/2018, 06/10/2017, Additional history exists SARS-COV-2 Immunization [...] Recently Relevant to Health Maintenance Results * HM COLONOSCOPY (08/07/2020) Connor Aguillon DO PROCEDURE/MINOR SURGICAL ORDERA BLES Final Result from Last 3 Months or Most Recently Relevant to Health Maintenance Insurance MEDICARE C [facility] Care Teams Scientist Electronics Relationship Specialty Start Date End Date Ameya Burleson DO [address] [facility] [address] [place] [address] PCP - General Internal Medicine 08/13/18
--- OUTSIDE RECORDS SUMMARY | 2025-06-22 03:00 | XMS_ITS | Patient Health Record ---
Author Organization [facility] [place] [facility] ([address]) Address [address] 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 Problems Problem Type SNOMED Code ICD Code Onset Dates Problem Status W/U Status Risk Notes Problem Chronic allergic conjunctivitis (34613155) Other chronic allergic conjunctivitis (H10.45) Active confirmed Problem Allergic rhinitis caused by pollen (disorder) (76039648) Allergic rhinitis due to pollen (J30.1) Active confirmed Problem Allergic rhinitis (00258149) Other allergic rhinitis (J30.89) Active confirmed Problem Allergic rhinitis caused by animal hair and dander (184122906432899) Allergic rhinitis due to animal (cat) (dog) hair and dander (J30.81) Active confirmed Vital Signs Oximetry 99 % 01/26/2025 Blood pressure diastolic 69 mm Hg 01/26/2025 Height 69 in 01/26/2025 Blood pressure systolic 115 mm Hg 01/26/2025 Weight 158.2 lbs 01/26/2025 BMI 23.36 kg/m2 01/26/2025 Encounters Encounter Location Date Provider Diagnosis [facility] [address] [facility] [address] [place] [address] 01/26/2025 Opal Sturm Allergic rhinitis du e [...] Coverage End Date U[employer] Medicare [address] [address] [place] [address] [id number] Connor Hicks Self - patient is the insured [employer] Plan [address] [place] [id number] Connor Hicks Self - patient is the insured Medical (General) History Medical History History ICD Code Dysthymic disorder F34.1 Premature ventricular contractions Surgical History Surgery Date(Month/Year) PVC ablation 02/2024 Hospitalization History Reason Date(Month/Year) See Above
[2025-08-01 15:40] VITALS: BMI 22.1
--- OUTSIDE RECORDS SUMMARY | 2025-08-18 03:42 | XMS_ITS | Patient Health Record ---
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 Problems Problem Type SNOMED Code ICD Code Onset Dates Problem Status W/U Status Risk Notes Problem Chronic allergic conjunctivitis (06156355) Other chronic allergic conjunctivitis (H10.45) Active confirmed Problem Allergic rhinitis caused by pollen (disorder) (79743108) Allergic rhinitis due to pollen (J30.1) Active confirmed Problem Allergic rhinitis (41454659) Other allergic rhinitis (J30.89) Active confirmed Problem Allergic rhinitis caused by animal hair and dander (815331047842678) Allergic rhinitis due to animal (cat) (dog) hair and dander (J30.81) Active confirmed Vital Signs Blood pressure diastolic 69 mm Hg 01/26/2025 Oximetry 99 % 01/26/2025 Height 69 in 01/26/2025 Blood pressure systolic 115 mm Hg 01/26/2025 Weight 158.2 lbs 01/26/2025 BMI 23.36 kg/m2 01/26/2025 Encounters Encounter Location Date Provider Diagnosis Critical access hospital [address] [facility] [address] [place] [address] 01/26/2025 Opal Sturm Allergic rhinitis du e [...] Coverage End Date UHC Medicare [address] [address] [place] [address] [id number] Connor Hicks Self - patient is the insured 5 [employer] Plan [address] [place] [id number] Connor Hicks Self - patient is the insured Medical (General) History Medical History History ICD Code Dysthymic disorder F34.1 Premature ventricular contractions Surgical History Surgery Date(Month/Year) PVC ablation 02/2024 Hospitalization History Reason Date(Month/Year) See Above
--- OUTSIDE RECORDS SUMMARY | 2025-08-18 03:42 | XMS_ITS | Encounter Summary ---
Author Organization [facility] Healthcare Address [address] [place] [address] Care Team Providers Care Ui Engineer Name Role Phone Ameya Burleson DO Primary Care Provider [phone] Debbie Marrero PT Unavailable [phone] Josse Mcfadden MD Primary Care Provider [phone] Ameya Burleson DO Primary Care Provider [phone] Encounter Details Date Type Department Care Team (Late st Contact Info) Description 06/30/2019 Telephone [facility] [address] [facility] Advanced Medicine [address] [place] [address] Ryan Ramirez MD [address] [place] [address] Social History Tobacco Use Types Packs/Day Years [...] file 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
--- OUTSIDE RECORDS SUMMARY | 2025-08-18 03:42 | XMS_ITS | Encounter Summary ---
Author Organization [facility] Healthcare Address [address] [place] [address] Care Team Providers Care Enterprise Integration Architect Name Role Phone Ameya Burleson DO Primary Care Provider [phone] Debbie Marrero PT Unavailable [phone] Josse Mcfadden MD Primary Care Provider [phone] Ameya Burleson DO Primary Care Provider [phone] Reason for Visit * Reason Onset Date Comments cancel appt 05/04/2019 Encounter Details Date Type Department Care Team (Late st Contact Info) Description 05/04/2019 Telephone [facility] the [place] [facility] [address] [facility] Advanced Medicine [address] [place] [address] Ryan Ramirez MD [address] [place] [address] cancel appt Social History Tobacco Use Types [...] on file 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
--- OUTSIDE RECORDS SUMMARY | 2025-08-18 03:42 | XMS_ITS | Clinical Summary ---
Author Organization [facility] Address [facility] [place] [address] Care Team Providers Care Shellfish Meat Separator Operator Name Role Phone Unavailable Primary Care [...] Vaccines (1 of 2) 12/28/2007 COVID-19 Vaccine (1 - 2024-2 6 season) 2025 Influenza Adult (#1) 2025 RSV Immunization or 60+ Years (1 - 1-dose 75+ series) 2032 Hepatitis A Vaccines Aged Out No long er eligible based on patient's age to complete this topic Meningococcal B Vaccine Aged Out No l onger eligible based on patient's age to complete this topic Meningococcal Vaccine Aged Out No rad betty eligible based on patient's age to complete this topic RSV Immunizations Under 20 Months Aged Out No longer eligible based on patient's age to complete this topic
--- OUTSIDE RECORDS SUMMARY | 2025-08-18 03:42 | XMS_ITS | Encounter Summary ---
Author Organization [facility] Address [address] [place] [address] Care Team Providers Care Dimension Quarry Supervisor Name Role Phone Ameya Burleson Primary Care Provider [phone] Encounter Details Date Type Department Care Team (Late st Contact Info) Description 05/05/2025 Lab Requisition [facility] - DermPath Lab [address] [facility] [place] [address] Shweta Smiley DO [address] [facility] [address] [place] [address] Social History Tobacco Use Types Packs/Day Years Used Date Smoking Tobacco: Never Assessed Sex and Gender Information Value Date Recorded Sex Assigned at Not on file 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 Gender Identity Not on file Sexual Orientation Not on file documented as of this encounter Plan of Treatment Not on file documented as of this encounter Procedures Procedure Name Priority Date/Time Associated Diagnosis Comments DERMATOPATHOLOGY Routine 05/05/2025 10:0 0 AM CDT documented in this encounter Results * DERMATOPATHOLOGY (05/05/2025 10:00 AM CDT) Case Report Dermatopathology Report Case: [id number] Authorizing Provider: Shweta Smiley DO Collected: 05/05/2025 10:00 AM Ordering Location: [facility] - Received: 05/06/2025 08:25 AM [...] characteristic determined by the Dermatopathology Laboratory at [facility], directed by Dr. Sofía Peralta. These tests need not be, and therefore are not, approved by the [place] Food and Drug Administration. The tests are used for clinical purposes. Billing Codes Specimen Charges Stain Charges 82330 1 12:30 PM CDT DERMATOPATHOLOGY LABORATORY Embedded Images 12:30 PM CDT DERMATOPATHOLOGY LABORATORY Pathology/Cytolo gy TISSUE SPECIMEN FROM SKIN / Unknown 05/05/2025 10:00 AM CDT 05/06/2025 8:25 AM CDT us Shweta Smiley DO LAB - PATHOLOGY/CYTOLOGY ORDERABLES Final Result DERMATOPATHOLOGY LABORATORY [facility] - Department of Dermatology [address], [address] Floor [address] [phone] documented in this encounter Visit Diagnoses Not on filedocumented in this encounter Care Teams Dimension Quarry Supervisor Relationship Specialty Start Date End Date Ameya Burleson DO [address] [facility] [address] [place] [address] PCP - General 09/28/18 documented as of this encounter
--- OUTSIDE RECORDS SUMMARY | 2025-08-18 03:42 | XMS_ITS | Encounter Summary ---
Author Organization [facility] Healthcare Address [address] [place] [address] Care Team Providers Care Range Aide Name Role Phone Ameya Burleson DO Primary Care Provider [phone] Josse Mcfadden MD Primary Care Provider [phone] Ameya Burleson DO Primary Care Provider [phone] Reason for Visit * Reason Onset Date Comments Prior Auth 11/23/2019 Methocarbamol 50 0mg Encounter Details Date Type Department Care Team (Late st Contact Info) Description 11/23/2019 Telephone [facility] Center at the [place] [facility] [address] [facility] Advanced Medicine [address] [place] [address] Ryan Ramirez MD [address] [place] [address] Prior Auth (Methocarbamol 500mg) Social History Tobacco [...] file 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
--- OUTSIDE RECORDS SUMMARY | 2025-08-18 03:42 | XMS_ITS | Clinical Summary ---
Author Organization [facility] Address [address], [facility] [address] [place] [address] Phone Care Team Providers Care Mold Finisher Name Role Phone Ameya Burleson Primary Care Provider [phone] Allergies Active Allergy Reactions Criticality Noted Date [...] 06/01/2018, 06/10/2017, Additional history exists SARS-COV-2 Immunization (3 - 2024- season) 2025 05/02/2021, 04/11/2021 Colonoscopy 08/07/2025 08/07/2020, 08/24/2018 Colorectal Cancer Screening 08/07/2025 Respiratory Syncytial Virus (RSV) Immunization (Adult) (1 - 1-dose 75+ series) 2032 Hepatitis B Immunization Aged Out No longer eligible based on patient's age to complete this topic Human Papillomavirus (HPV) Immunization (No Doses Required) Completed Meningococcal Immunization (ACWY) Aged Out No longer [...] Health Maintenance Insurance MEDICARE C [facility] Care Teams Mold Finisher Relationship Specialty Start Date End Date Ameya Burleson DO [address] [facility] [address] [place] [address] PCP - General Internal Medicine 08/13/18
--- OUTSIDE RECORDS SUMMARY | 2025-08-18 03:42 | XMS_ITS | Encounter Summary ---
Author Organization [facility] Healthcare Address [address] [place] [address] Care Team Providers Care Lead Technical Architect Name Role Phone Ameya Burleson DO Primary Care Provider [phone] Valentine Carvajal DPT Unavailable [phone] Debbie Marrero PT Unavailable [phone] Josse Mcfadden MD Primary Care Provider [phone] Ameya Burleson DO Primary Care Provider [phone] Reason for Visit * Reason Onset Date Comments Scheduling Appointments 04/14/2019 Encounter Details Date Type Department Care Team (Late st Contact Info) Description 04/14/2019 Telephone [facility] [address] [address] Ryan Ramirez MD [address] [place] [address] Scheduling Appointments Social History Tobacco Use Types [...] on file 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
--- OUTSIDE RECORDS SUMMARY | 2025-08-18 03:42 | XMS_ITS | Encounter Summary ---
Author Organization [facility] Healthcare Address [address] [place] [address] Care Team Providers Care Clinical Assistant Professor Name Role Phone Ameya Burleson DO Primary Care Provider [phone] Josse Mcfadden MD Primary Care Provider [phone] Ameya Burleson DO Primary Care Provider [phone] Reason for Visit * Reason Onset Date Comments Imaging 01/19/2020 Encounter Details Date Type Department Care Team (Late st Contact Info) Description 01/19/2020 Telephone [facility] Pain Center at the [place] [facility] [address] 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
--- OUTSIDE RECORDS SUMMARY | 2025-08-18 03:42 | XMS_ITS | Encounter Summary ---
Author Organization [facility] Healthcare Address [address] [place] [address] Care Team Providers Care Welder 2Nd Shift Name Role Phone Ameya Burleson DO Primary Care Provider [phone] Josse Mcfadden MD Primary Care Provider [phone] Ameya Burleson DO Primary Care Provider [phone] Reason for Visit * Reason Onset Date Comments Prior Auth 01/09/2020 Cyclobenzaprine 5mg Encounter Details Date Type Department Care Team (Late st Contact Info) Description 01/09/2020 Telephone [facility] Pain Center at the [place] [facility] [address] [facility] Advanced Medicine [address] [place] [address] Ryan Ramirez MD [address] [place] [address] Prior Auth (Cyclobenzaprine 5mg) Social History Tobacco [...] on file 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
--- OUTSIDE RECORDS SUMMARY | 2025-08-18 03:42 | XMS_ITS | Encounter Summary ---
Author Organization [facility] Address [address] [place] [address] Phone Care Team Providers Care Child Care Specialist Name Role Phone Ameya Burleson DO Primary Care Provider [phone] Josse Mcfadden MD Primary Care Provider [phone] Ameya Burleson DO Primary Care Provider [phone] Encounter Details Date Type Department Care Team (Late st Contact Info) Description 01/27/2020 Documentation [facility] Medicine Physical Therapy [address] [facility] 1st Floor [address] [place] [address] Debbie Marrero, PT [address] [facility] [address] [place] [address] Social History Tobacco Use Types [...] on file 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
--- OUTSIDE RECORDS SUMMARY | 2025-08-18 03:42 | XMS_ITS | Clinical Summary ---
Author Organization [facility] Address [address] [place] [address] Care Team Providers Care Sales And Service Advisor Name Role Phone Ameya Burleson DO Primary Care Provider [phone] Allergies Active Allergy Reactions Criticality Noted Date [...] - 06/14/2025 11:59 PM CDT Hospital Encounter [facility] [address] [place] [address] Right lower quadrant pain; Abnormal weight loss Discharge Disposition: Discharge to home or self care 06/13/2025 7:40 AM CDT Ancillary Procedure [facility] Outside Films from Last 3 Months Immunizations Immunization Administration Dates Next Due Influenza, Quadrivalent, Spl it, Preservative Free, Intramuscular 06/02/2018 Surgical History Surgery Date Site/Laterality Comments CERVICAL FUSION Cervical Vertebral Fusion - (Added by TW Conv) ROTATOR CUFF REPAIR Rotator Cuff Repair - (Added by TW Conv) UT UNLISTED PROCEDURE ABDOME N PERITONEUM & OMENTUM Hernia Repair - (Added by TW Conv) UT EXCISION 1ST &/CERVICAL RIB Thorax Excision Of [...] on file 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 Gender Identity Not on file Sexual Orientation [...] 2025 05/02/2021, 04/11/2021 Influenza Vaccine (#1) 2025 , 06/05/2020, 06/03/2019, [...] as needed Medical Devices Implanted Type Area Computer Specialist Device Identifier Shelf Expiration Date Model / Serial / Lot [employer] Vascade Mvp 6-12fr Venous Closure [id number] - [id number] - [id number] Implanted:Qty: 1 on 01/29/2024 by Timothy Sabillon MD at [facility] Collagen Right: Femoral [employer] 06/30/2025 [id number]- 10U / [id number] 30C / [id number] 30C [employer] Vascade Mvp 6-12fr Venous Closure [id number] - [id number] - [id number] Implanted:Qty: 1 on 01/29/2024 by Timothy Sabillon MD at [facility] Collagen Left: Femoral [employer] 06/30/2025 800-612C- 10U / [id number] 30C / [id number] 30C [employer] Device Vascular Closure Femoral Artery Bioabsorbable Dual Method Vascade 6-7fr Collagen [id number] - [id number] - [id number] Implanted:Qty: 1 on 01/29/2024 by Timothy Sabillon MD at [facility] Collagen Left: Femoral [employer] 10/27/2025 [id number]- 05U / [id number] 26A / [id number] 26A [employer] Device Closure Vascade Od5 Fr Femoral Artery [id number] - [id number] - [id number] Implanted:Qty: 1 on 01/29/2024 by Timothy Sabillon MD at [facility] Collagen Right: Femoral [employer] 10/07/2025 [id number] -05U / [id number] / [id number] 131A Lumbar Spine Fusion Instrumentation, Cage Spine Lumbar Cervical Spine Fusion Instrumentation, Cage Implanted:1988 (Quantity not on file) Lumbar-Sac ral Spine Explanted Type Area Computer Specialist Device Identifier Shelf Expiration Date Model / Serial / Lot [employer] Neuro- Sc-[id number] Precision Infinion 50cm 1x16 Splitter Trial Lead Kit - [id number] Implanted:Qty: 1 on 08/18/2019 by Ryan Ramirez MD at [facility] Explanted:2018 by Ryan Ramirez MD (Quantity not on file) [employer] Neuro- SC-[id number] / / Description:Per Progress Not e from Dr. Ramirez, 08/24/2019: SCS leads removed, tip and intact. [employer] Neuro- Sc-[id number] Precision Infinion 50cm 1x16 Splitter Trial Lead Kit - [id number] Implanted:Qty: 1 on 08/18/2019 by Ryan Ramirez MD at [facility] Explanted:2018 by Ryan Ramirez MD (Quantity not on file) [employer] Neuro- SC-[id number] / / Description:Per Progress Not e from Dr. Ramirez, 08/24/2019: SCS leads removed, tip and intact. [employer] Jb [id number]-4116 Precision Spectra 213cm 1x16 Splitter Extension Cable - [id number] Implanted:Qty: 1 on 08/18/2019 by Ryan Ramirez MD at [facility] Medicine Explanted:2018 by Ryan Ramirez MD (Quantity not on file) [employer] Jb SC-4116 / / Description:Per Progress [...] Tubbs M.D. KR: JOSE RAMON Report ID: [id number] Reading Location: [id number] Procedure Note Glenn Tubbs MD - 06/15/2025 [...] Tubbs M.D. KR: JOSE RAMON Report ID: [id number] Reading Location: [id number] us Julisa Luna NP IMG MRI PROCEDURES Final R esult * CT Body Outside Reference (06/13/2025 7:38 AM CDT) Narrative [facility] - 06/13/2025 7:38 AM CDT This order has been auto-finalized and does not contain a result. us Not In File Miscellaneous IMG CT PROCEDURES Alejandra l Result [facility] from Last 3 Months Insurance [facility] MEDICARE [facility] Address: [address] [address] [place] [address] [employer]id[employer] [facility] MEDICARE ADVANTAGE [facility] Address: [address] [address] [place] [address] [facility] MEDICARE ADVANTAGE Advance Directives For more information, please contact: [phone] * Full Code (Latest Code Status on File) Date Activated Date Inactivated Comments 01/29/2024 7:17 PM 01/30/2024 1:41 PM Care Teams Sales And Service Advisor Relationship Specialty Start Date End Date Ameya Burleson DO PCP - General Internal Medicine 05/12/24
--- OUTSIDE RECORDS SUMMARY | 2025-08-18 03:42 | XMS_ITS | Clinical Summary ---
Author Organization [facility] Address [address] [place] [address] Care Team Providers Care Weight Shifter Name Role Phone Ameya Burleson DO Primary Care Provider [phone] Source Comments [facility],non-owned Affiliates and Associated Physician Practices is amultiple site organization consisting of ambulatory clinics and hospital sitesin [place], [place], [place] and [place]. This disclosure is being madepursuant to the Care Everywhere program and may not contain all information available regarding this patient. 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
--- OUTSIDE RECORDS SUMMARY | 2025-08-18 03:42 | XMS_ITS | Encounter Summary ---
Author Organization [facility] Healthcare Address [address] [place] [address] Care Team Providers Care Wardrobe Technician Name Role Phone Ameya Burleson DO Primary Care Provider [phone] Valentine Carvajal DPT Unavailable [phone] Debbie Marrero PT Unavailable [phone] Josse Mcfadden MD Primary Care Provider [phone] Ameya Burleson DO Primary Care Provider [phone] Encounter Details Date Type Department Care Team (Late st Contact Info) Description 01/21/2019 Telephone [facility] [address] [place] [address] Ryan Ramirez MD [address] [place] [address] Social History Tobacco Use Types Packs/Day Years Used Date Smoking Tobacco: Never Smokeless Tobacco: Never Alcohol Use Standard Drinks/Week Comments Yes 0 (1 standard drink = 0.6 oz pur e alcohol) Rarely Sex and Gender Information Value Date Recorded Sex Assigned at Not on file 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
[2025-08-18 12:54] VITALS: BP 121/80; PULSE 119; RESP 20; TEMP 36.6; O2SAT 97; BMI 21.7
[2025-08-18] MEDS: LACTATED RINGERS 1,000 ML 150 ML IV CONT (13:07)
--- NOTE | 2025-08-18 13:20 | P.PNAN_ITS ---
Anes - Initial Pre Proc Eval Procedure: Operation Date: 08/18/25 14:00 Proposed Procedures p EGD & Diagnostic Colonoscopy - Valentin Chairez MD Date/Time: 08/18/25 13:20 Surgeon: Valentin Chairez MD Pre Op Diagnosis: Right lower quadrant pain. Abnormal weight loss Patient Data Age: 69 Gender: M Height: 1.75 m Weight: 66.8 kg Last Vital Signs Temp 97.8 F 08/18/25 12:54 Pulse 119 H 08/18/25 12:54 Resp 20 08/18/25 12:54 BP 121/80 08/18/25 12:54 Pulse Ox 97 08/18/25 12:54 O2 Del Method Room Air 08/18/25 12:54 Allergies Allergy/AdvReac Type Severity Reaction Status Date / Time doxycycline AdvReac Intermediate Diarrhea Verified 08/18/25 12:51 acetaminophen (From Vicodin) AdvReac Mild Headache Verified 08/18/25 12:51 cefuroxime AdvReac Mild Diarrhea Verified 08/18/25 12:51 codeine AdvReac Mild Flushing Verified 08/18/25 12:51 hydrocodone (From Vicodin) AdvReac Mild Headache Verified 08/18/25 12:51 Home Medications ?Medication ?Instructions ?Recorded ?Confirmed ?Type metoprolol succinate 25 mg 25 mg PO DAILY #30 tabs 04/3008/18/25 Rx tablet,extended release 24 hr triamcinolone acetonide 0.1 % 1 applic dental TID PRN canker 11/24/24 07/25/25 Rx dental paste sores #5 grams tamsulosin 0.4 mg capsule (Flomax) 0.4 mg PO DAILY #90 caps 01/06/25 08/18/25 Rx fluticasone propionate 50 2 spray intranasal DAILY PRN 06/14/25 07/25/25 History mcg/actuation nasal allergy symptoms spray,suspension (Flonase Allergy Relief) valacyclovir 1 gram tablet 2,000 mg PO DAILY PRN cold sores 06/14/25 07/25/25 History alprazolam 1 mg tablet 1 mg PO BID #60 tabs 06/22/2 5 08/18/25 Rx sildenafil 100 mg tablet (Viagra) 100 mg PO DAILY PRN sexual 07/06/25 08/01/25 Rx activity #8 tabs Patient hx anesthesia problems: none Family hx anesthesia problems: none Results Review: All pre-operative results and documents have been reviewed as part of the pre- operative evaluation. [facility] Past Medical History Medical History BMI 22.0-22.9, adult COVID-19 PVC (premature ventricular contraction) Chronic sinusitis Cough Cervical fusion syndrome TOS (thoracic outlet syndrome) Anxiety Surgical History Surgical History History of radiofrequency ablation (RFA) procedure for cardiac arrhythmia History of esophagogastroduodenoscopy (EGD) Family History Family History Sibling Hypertension Patient's brother is in good health Mother Family history of Parkinson's disease Father Family history of emphysema Social History Social History Smoking status: Never smoker Second hand tobacco smoke exposure: No Alcohol intake: never Alcohol use details: 2 drinks a year Substance use: never Substance use type: does not use Lack of Transportation: No Lack of Food: Never True Current Housing: I Have Housing Concerned About Future Housing: No Difficulty Paying Gas/Electric Bills: No Difficulty Paying for Meds: No Currently Unemployed: No Education: High School Diploma/GED Difficulty w/ Childcare or Family Care: No Living arrangements: alone Occupation/Education: retired Additional occupation/education comments: [employer] Gender identity (if verbalized by the patient): Male Spiritual care concerns: No Anes - Eval Final PreProcedure Day of Procedure 08/18/25 13:20 Patient weight: normal Heart: regular rate and rhythm Lungs: clear to auscultation Airway: Mallampati scale class II Neurological: alert and oriented Last oral intake: >/= 8 hours ASA classification: II Emergent: no Anesthetic plan: proceed Anesthesia type and monitoring: general GIVS and standard monitoring Results Review: All pre-operative results and documents have been reviewed as part of the pre- operative evaluation. Informed Consent: The patient's anesthetic plan and its attendant risks and benefits were discussed with the patient/family/POA. Questions were solicited and answers provided to the satisfaction of the patient/family/POA.
--- NOTE | 2025-08-18 13:23 | WPDHPUPDATE1 ---
History and Physical Update Update Date/Time: 08/18/25 13:23 History and Physical has been reviewed, including an updated exam of the patient. There are NO changes in the patient's condition. Risks, benefits, and alternatives have been discussed and questions answered. Patient agrees to proceed with procedure.
--- NOTE | 2025-08-18 13:33 | S_PTH ---
PATIENT: Connor Hicks LOC: [facility] Pena#:[id number] AGE/SX: 69/M ROOM: RE08/18/[address]: Valentin Chairez MD : 1955 BED: DIS: 08/18/2025 SPEC #: [id number] RECD: 08/18/25 14:22 STATUS: DREW REQ #: [id number] ANTONIO: 08/18/25 13:[address]: Valentin Chairez DEPT: [facility] Surgical RECD BY: Yesi Darling ENTERED: 08/18/25 14:23 SP TYPE: Surgical OTHR DR: Ameya Burleson DO Tissues: A - Small Bowel Bx B - Gastric Biopsy C - Colon Polypectomy D - Colon Polypectomy Procedures: Hematoxylin and Eosin Stain Gross and Microscopic Level 4
--- NOTE | 2025-08-18 13:35 | SUR.OPER ---
EGD: [id number] COLON: Start 1337
[2025-08-18 13:42] VITALS: BP 114/73; PULSE 81; RESP 17; O2SAT 97
[2025-08-18 13:52] VITALS: BP 102/64; PULSE 82; RESP 15; O2SAT 98
[2025-08-18 14:02] VITALS: BP 109/67; PULSE 75; RESP 16; O2SAT 99
== END 2025-08-18 14:30 | disposition home or self-care (01) ==
PROVIDERS: PCP Internal Medicine; Visit Provider Internal Medicine Gastroenterology
PROC: 0DJ08ZZ Inspection of Upper Intestinal Tract, Via Natural or Artificial Opening Endoscopic (ICD-10-PCS; CPT 45378; principal; 2025-08-18 14:00)
DX: K63.5 Polyp of colon (principal); K64.8 Other hemorrhoids; K57.30 Diverticulosis of large intestine without perforation or abscess without bleeding; K58.0 Irritable bowel syndrome with diarrhea; K21.9 Gastro-esophageal reflux disease without esophagitis; I49.3 Ventricular premature depolarization; F41.9 Anxiety disorder, unspecified; I42.9 Cardiomyopathy, unspecified; J32.9 Chronic sinusitis, unspecified; Q76.1 Klippel-Feil syndrome; G54.0 Brachial plexus disorders; Z86.79 Personal history of other diseases of the circulatory system
CPT/HCPCS: 43239; 45385; 88305; J2704; J7120